=== PATIENT | female | born 1960 | race Caucasian/White ===

== ENCOUNTER → 2020-11-28 | Outpatient (REF) | payer OTHER ==
[2020-11-28 11:45] LABS: BASO % 0.2 % (0.0-1.0); EOS # 0.1 10^3/uL (0.0-0.5); HEMATOCRIT 40.7 % (36.0-47.0); HEMOGLOBIN 13.1 g/dl (12.0-15.5); LYMPH # 2.2 10^3/uL (1.5-5.0); LYMPH % 37.5 % (24.0-44.0); MEAN CORPUSCULAR HEMOGLOBIN 30.7 pg (27.0-33.0); MEAN CORPUSCULAR HGB CONC 32.2 g/dl (32.0-36.5); MEAN CORPUSCULAR VOLUME 95.3 fl (80.0-96.0); MONO # 0.6 10^3/uL (0.0-0.8); MONO % 9.5 % (2.0-8.0); NEUTROPHILS % 50.6 % (36.0-66.0); PLATELET COUNT, AUTOMATED 271 10^3/uL (150-450); RED BLOOD COUNT 4.27 10^6/uL (4.00-5.40); WHITE BLOOD COUNT 5.9 10^3/uL (4.0-10.0)
[2020-11-28 12:23] LABS: ALBUMIN 4.1 GM/DL (3.2-5.2); ALT/SGPT 52 U/L (12-78); BILIRUBIN,TOTAL 0.8 MG/DL (0.2-1.0); BLOOD UREA NITROGEN 19 MG/DL (7-18); CALCIUM LEVEL 9.6 MG/DL (8.8-10.2); CARBON DIOXIDE LEVEL 25 MEQ/L (21-32); CHLORIDE LEVEL 108 MEQ/L (98-107); CHOLESTEROL LEVEL 212 MG/DL (<200); CHOLESTEROL RISK RATIO 3.475 (<5); CREATININE FOR GFR 0.76 MG/DL (0.55-1.30); FREE T4 0.92 NG/DL (0.76-1.46); GLOMERULAR FILTRATION RATE > 60.0 (>45); GLUCOSE, FASTING 110 MG/DL (70-100); HDL CHOLESTEROL 61 MG/DL (>40); LDL CHOLESTEROL 104 MG/DL (<100); NON-HDL-C 151 MG/DL; POTASSIUM SERUM 4.4 MEQ/L (3.5-5.1); SODIUM LEVEL 143 MEQ/L (136-145); TOTAL PROTEIN 7.4 GM/DL (6.4-8.2); TRIGLYCERIDES LEVEL 233 MG/DL (<150)
[2020-11-28 12:31] LABS: HEMOGLOBIN A1c 5.4 %
== END ==
LOC: M SFHCCLAY 08:58
PROVIDERS: ATTEND Nurse Practitioner Family
DX: E03.9 Hypothyroidism, unspecified (principal); R73.01 Impaired fasting glucose; F41.1 Generalized anxiety disorder; E66.9 Obesity, unspecified; B00.1 Herpesviral vesicular dermatitis

== ENCOUNTER → 2020-12-05 | Outpatient (CLI) | payer SELFPAY | LOC: M LABSMTC 10:43 | PROVIDERS: ATTEND Pediatrics | DX: Z20.822 Contact with and (suspected) exposure to COVID-19 (principal) ==

== ENCOUNTER → 2020-12-24 | Outpatient (REF) | payer OTHER | LOC: M LAB REF 18:21 | PROVIDERS: ATTEND Otolaryngology | DX: E07.9 Disorder of thyroid, unspecified (principal) ==

== ENCOUNTER 2021-02-09 14:05 | Inpatient (IN) | payer OTHER ==
[~2021-02-09] VITALS: Ht 165.1 cm; Wt 90.4 kg
[~2021-02-09 14:05] MED LIST: ACYC1TAB PO; ALPR0.25 PO; ATOR40TA75 PO; BYST10TA2 PO; CALCTAB62 PO; ECOT81TA5 PO; LEVO50TA5 PO; METF500T13 PO; MULT-90 PO; OM3/1CAP3 PO; PROBCAP17 PO; SUPETAB44 PO; SYNT50TA PO; VITA-243 PO; [UNRECOGNIZED DRUG - CODE] PO
[2021-02-09] MEDS ORDERED: MORPHINE 4 MG/ML 1ML VIAL/SYRINGE (J2270) IV ONE ×3 (14:20→15:50)
[2021-02-09] MEDS ORDERED: MORPHINE 4 MG/ML 1ML VIAL/SYRINGE (J2270) As Ordered ONE (14:21)
[2021-02-09] MEDS: NS 1,000 ML IV SCH ×2 (15:09→16:24)
[2021-02-09] MEDS: propofoL 200 MG/20 ML VIAL IV.PROC PRN ×4 (15:11→15:17)
[2021-02-09 16:33] LABS: BASO % 0.1 % (0.0-1.0); EOS # 0.1 10^3/uL (0.0-0.5); EOS % 0.8 % (0.0-3.0); HEMATOCRIT 36.8 % (36.0-47.0); LYMPH # 1.8 10^3/uL (1.5-5.0); MEAN CORPUSCULAR HGB CONC 32.6 g/dl (32.0-36.5); MEAN CORPUSCULAR VOLUME 95.1 fl (80.0-96.0); MONO # 0.7 10^3/uL (0.0-0.8); MONO % 8.3 % (2.0-8.0); NEUTROPHILS # 5.9 10^3/uL (1.5-8.5); NEUTROPHILS % 69.4 % (36.0-66.0); PLATELET COUNT, AUTOMATED 231 10^3/uL (150-450); RED BLOOD COUNT 3.87 10^6/uL (4.00-5.40); WHITE BLOOD COUNT 8.5 10^3/uL (4.0-10.0)
--- NOTE | 2021-02-09 16:54 | REP ---
INDICATION: right ankle pain/deformity. COMPARISON: None. TECHNIQUE: Frontal and lateral views of the right tibia and fibula and 4 images were obtained. FINDINGS: There is a comminuted fracture of the distal fibula, and a transverse fracture of the medial malleolus with lateral dislocation of the ankle joint. The knee joint is unremarkable. IMPRESSION: Fractures of the distal tibia and fibula with lateral dislocation of the ankle joint. <Electronically signed by Freddy House > 02/09/21 [id number]
[2021-02-09 16:58] LABS: ALBUMIN 3.7 GM/DL (3.2-5.2); ALT/SGPT 62 U/L (12-78); BILIRUBIN,TOTAL 0.6 MG/DL (0.2-1.0); BLOOD UREA NITROGEN 20 MG/DL (7-18); CALCIUM LEVEL 8.5 MG/DL (8.8-10.2); CARBON DIOXIDE LEVEL 27 MEQ/L (21-32); CHLORIDE LEVEL 110 MEQ/L (98-107); CREATININE FOR GFR 0.77 MG/DL (0.55-1.30); GLOMERULAR FILTRATION RATE > 60.0 (>45); GLUCOSE, FASTING 104 MG/DL (70-100); POTASSIUM SERUM 4.3 MEQ/L (3.5-5.1); SODIUM LEVEL 144 MEQ/L (136-145); TOTAL PROTEIN 6.4 GM/DL (6.4-8.2)
--- NOTE | 2021-02-09 16:58 | REP ---
INDICATION: right ankle pain/deformity. COMPARISON: None. TECHNIQUE: Three images of the right ankle were obtained. FINDINGS: There is a comminuted fracture of the distal fibula and a transverse fracture of the medial malleolus with lateral dislocation of the ankle. Additionally, there may be additional fractures of the talus and/or calcaneus. There has been orthopedic screw fixation of a prior fracture of the calcaneus. IMPRESSION: Fractures of the distal tibia and fibula with dislocation of the ankle. Other findings as noted. <Electronically signed by Freddy House > 02/09/21 [id number]
--- NOTE | 2021-02-09 17:19 | REPVR ---
PROCEDURE INFORMATION: Exam: CT Right Lower Extremity Without Contrast, Ankle Exam date and time: 02/09/2021 3:45 PM Age: 60 years old Clinical indication: Injury or trauma; Fall; Blunt trauma; Ankle; Right; Additional info: Further evaluate right ankle reduction TECHNIQUE: Imaging protocol: CT of the Right lower extremity without contrast was performed. Exam focused on the ankle. Radiation optimization: All CT scans at this facility use at least one of these dose optimization techniques: automated exposure control; mA and/or kV adjustment per patient size (includes targeted exams where dose is matched to clinical indication); or iterative reconstruction. COMPARISON: CR Ankle, complete RIGHT 02/09/2021 2:25 PM FINDINGS: Bones/joints: Comminuted fracture distal fibular metaphyseal and anterior epiphyseal fracture, with posterior angulation and mild overriding at the distal fracture site; Posterior dislocation of the talus at the tibiotalar articulation, with overriding mildly laterally displaced and mildly comminuted comminuted fracture of the distal tibial posterior malleolus. Transverse fracture of the distal tibial medial malleolus with approximately 95% posterior displacement of the distal fragment and mild posterior elevated rotation (series 204, image 70). Previous calcaneal-talar fixation screw redemonstrated. Probable suture anchor tracts medial navicular. An os trigonum is present, a sometimes symptomatic normal variant. Soft tissues: The posterior tibial tendon is in contact with the displaced posterior tibial medial malleolar fragment and does not demonstrate any evidence of entrapment. Medial predominant soft tissue swelling at the level of the ankle. IMPRESSION: Tibiotalar dislocation with posterior and medial malleolar tibial fractures and comminuted distal fibular fracture. Electronically signed by: Pete Cuellar On 02/09/2021 17:18:47 PM
--- NOTE | 2021-02-09 17:36 | ECGEPIP ---
[facility] - ED Test Date: 2021-02-09 Pat Name: SIMEON RAYMOND Department: Room: - Gender: Female [employer]: NICOLAS : 1960 Requested By: DENNIS LOZA Order Number: [id number] Reading MD: Dennis Alberto Measurements Intervals [place] Rate: 66 P: 65 DE: 164 QRS: -24 QRSD: 88 T: 31 QT: 448 QTc: 469 Interpretive Statements Normal sinus rhythm Low QRS complex voltage in the limb leads Nonspecific T wave abnormality Comparison tracing not on file Electronically Signed on 02-09-2021 17:35:56 EDT by Dennis Alberto
--- NOTE | 2021-02-09 17:58 | CR.PDOC ---
General Date of Consultation: Feb 09, 2021 Consultation REASON FOR CONSULTATION/CHIEF COMPLAINT: Right ankle fracture dislocation History taken from patient and from admission history and physical HISTORY OF PRESENT ILLNESS: Patient was reportedly walking down a slope today when she lost her balance and ended up falling. She had an obvious deformity to her right foot and ankle. Reportedly by EMS there was a questionable pulses to the extremity at the time. She did have a pink and warm extremity however. She is brought to the emergency room with a clear obvious deformity. She was quickly evaluated by the emergency room physician. I was in the emergency room at the time so conscious sedation with closed reduction was arranged. Of note, she has had bilateral calcaneal slide or other type procedures performed with retention of hardware. ALLERGIES: Please see below. HOME MEDICATIONS: Please see below. PAST MEDICAL HISTORY: HYPOTHYROIDISM HIGH CHOLESTEROL ALLERGIC RHINITIS HTN ORAL - COLD SORES ALVARO OBESITY HERPES LABIALIS PAST SURGICAL HISTORY: RIGHT WRIST ARTHRITIC SURGERY RIGHT FOOT RECONSTRUCTION LEFT ANKLE RECONSTRUCTION LEFT KNEE: TORN ACL AND MENISCUS ANKLE AND FOOT REPAIR VASCULAR SURGERY - VARICOSE VEINS 2019 COLONOSCOPY IN 40S SOCIAL HISTORY: Social alcohol use Denies smoking FAMILY HISTORY: FATHER: 85 YRS, FROM [place], HX OF CAD AND DEMENTIA MOTHER: ALIVE 86 YRS, GLAUCOMA, PVD, HTN SIBLINGS: SISTER: PITUITARY TUMOR, MIGRAINE SISTER: MIGRAINE, VARICOSE VEINS PATERNAL GRAND FATHER: , CAD PATERNAL GRAND MOTHER: , DEMENTIA MATERNAL GRAND FATHER: , CAD, DEMENTIA MATERNAL GRAND MOTHER: , CAD, DIAGNOSED WITH DIABETES 2 SISTER(S) - HEALTHY. REVIEW OF SYSTEMS: Patient denies any complaints or concerns aside from her right foot and ankle PHYSICAL EXAMINATION: VITAL SIGNS: Please see below. GENERAL APPEARANCE: Patient is not in any significant acute distress but she does have significant discomfort to her right ankle which demonstrates the clear deformity EXTREMITIES: The right foot and ankle demonstrates a 90 degree position of the foot with no obvious open fracture or otherwise. There is tenting of the skin particularly medially. The patient has very weak posterior tibial pulse. The dorsalis pedis is not particularly palpable. NEUROLOGICAL: Sensation is grossly intact to the right foot and ankle LABORATORY DATA: Please see below. ASSESSMENT/PLAN: Patient demonstrates a right ankle fracture dislocation which is quite severe. X-ray imaging confirmed this. There was trimalleolar fracture dislocation with fragmentation of the fibula. There also appears to be a possible support fracture of the anterior lateral tibia plafond. The patient underwent conscious sedation with a closed reduction attempt. The patient consented to this with the appropriate risks and benefits described as documented on the consent form. The patient is aware that she will require surgical intervention. After a timeout was performed, the patient received propofol for conscious sedation. The patient did receive quite a bit of this medication and during the attempt at reduction with the knee flexed and the hip flexed to 90 degrees she was fighting the reduction and shouting out what was later identified as her dog's name throughout the whole time. The reduction was difficult. The medial malleolus fragment was difficult to manipulate however the skin tension and tenting was able to be reduced. The anterior medial to lateral anatomy of the foot appeared to be reapproximated without any significant skin tenting however again the patient was continually fighting the reduction. A plaster back slab and sugar tong splint was applied and allowed to cure in position. Post splinting, the patient demonstrated palpable dorsalis pedis pulse and was moving her toes and grossly had sensation to the exposed portion of her foot. Post splinting, a CT scan was ordered: The CT scan was independently ordered and reviewed by myself today. This demonstrated evidence of a comminuted distal fibula fracture with posterior malleolus fracture and possible posterior marginal impaction; displaced medial malleolus fracture with tibiotalar dislocation persisting, posteriorly Due to the persistent dislocation of the tibiotalar joint, the patient will be taken urgently to the operating room this evening for close reduction and application of external fixator. Patient will be admitted Vital Signs/I&O Vital Signs Date Time Temp Pulse Resp B/P (MAP) Pulse Ox O2 Delivery O2 Flow Rate FiO2 02/09/21 16:25 16 02/09/21 15:23 134/72 (92) Nasal Cannula 2.0 02/09/21 15:20 79 98 02/09/21 14:15 98.2 Laboratory Data Labs 24H Laboratory Tests 2 02/09/21 15:28: Immature Granulocyte % (Auto) 0.4, Neutrophils (%) (Auto) 69.4H, Lymphocytes (%) (Auto) 21.0L, Monocytes (%) (Auto) 8.3H, Eosinophils (%) (Auto) 0.8, Basophils (%) (Auto) 0.1, Neutrophils # (Auto) 5.9, Lymphocytes # (Auto) 1.8, Monocytes # (Auto) 0.7, Eosinophils # (Auto) 0.1, Basophils # (Auto) 0.0, Nucleated Red Blood Cells % (auto) 0.0, Anion Gap 7L, Glomerular Filtration Rate > 60.0, Calcium Level 8.5L, Total Bilirubin 0.6, Aspartate Amino Transf (AST/SGOT) 37, A lanine Aminotransferase (ALT/SGPT) 62, Alkaline Phosphatase 66, Total Protein 6.4, Albumin 3.7, Albumin/Globulin Ratio 1.4 02/09/21 16:09: CBC/BMP Laboratory Tests 02/09/21 15:28 Allergies Coded Allergies: Penicillins (Verified Allergy, Unknown, 02/10/21) PATIENT STATES SHE RECEIVED KEFLEX W/NO PROBLEM Sulfa (Sulfonamide Antibiotics) (Verified Allergy, Unknown, 02/07/21) Home Medications Scheduled Acyclovir (Acyclovir) 400 Mg Tablet, 400 MG PO DAILY, (Reported) Ascorbic Acid (Vitamin C) 500 Mg Tablet, 500 MG PO DAILY, (Reported) Aspirin (Ecotrin) 81 Mg Tablet.dr, 81 MG PO BID for 28 Days, #30 Atorvastatin Calcium (Atorvastatin Calcium) 40 Mg Tablet, 40 MG PO QHS, (Reported) Calcium Carbonate (Calcium) 600 Mg Tablet, 600 MG PO QHS, (Reported) Cetirizine HCl (ZyrTEC) 10 Mg Capsule, 10 MG PO DAILY, (Reported) Folic Acid/Vit B Complex and C (Super B Complex Tablet) 400 Mcg Tablet, 1 TAB PO DAILY, (Reported) Lactobacillus Combo No.11 (Probiotic) 1 Each Cap.sprink, 1 CAP PO DAILY, (Reported) Levothyroxine Sodium (Levothyroxine Sodium) 50 Mcg Tablet, 50 MCG PO DAILY, (Reported) Metformin HCl (Metformin HCl) 500 Mg Tablet, 500 MG PO BID, (Reported) Multivitamin (Multivitamin) 1 Each Tablet, 2 TABS PO QHS, (Reported) Nebivolol HCl (Bystolic) 10 Mg Tablet, 10 MG PO QHS, (Reported) Om3/Dha/Epa/Fish/Kril/Lut/Zeax (Megared Adv Total Body Refresh) 375 Mg-350 Mg- 500 Mg-30 Mg Capsule, 2 CAP PO QHS, (Reported) Phentermine/Topiramate (Qsymia 11.25 mg-69 mg Capsule) 1 Each Cpmp.24hr, 1 CAP PO DAILY, (Reported) Sennosides/Docusate Sodium (Senna-S Tablet) 1 Each Tablet, 1 TAB PO BID for 7 Days, #14 [Flexuron] , 1 CAP PO QHS, (Reported) [Prevagen] , 10 MG PO DAILY, (Reported) Scheduled PRN Acetaminophen (Acetaminophen) 325 Mg Tablet, 650 MG PO Q4HP PRN for TEMP,PAIN LEVEL 1-4 for 30 Days, #90 Alprazolam (Alprazolam) 0.25 Mg Tablet, 0.25 MG PO QID PRN for ANXIETY, (Reported) Oxycodone HCl (Oxycodone HCl) 5 Mg Tablet, 5 MG PO Q6HP PRN for PAIN LEVEL 5-7 for 5 Days, #20 VINICIO GONZALES MD Feb 09, 2021 17:58
[2021-02-09 18:00] LABS: RSV AMPLIFICATION NEGATIVE (NEGATIVE)
[2021-02-09] MEDS ORDERED: [UNRECOGNIZED DRUG - OTHER] PO (19:00)
[2021-02-09] MEDS ORDERED: PREVAGEN PO (19:00)
[2021-02-09] MEDS ORDERED: CETI10CA2 PO (19:00)
[2021-02-09] MEDS ORDERED: HOME MED LIST COMPLETE! XX SCH (19:10)
[2021-02-09] MEDS ORDERED: HYDROMORPHONE HCL 0.5 MG/ 0.5 ML SYRINGE (J1170 PER 1) IV PRN ×2 (19:35)
[2021-02-09] MEDS ORDERED: ACETAMINOPHEN *IV* 1,000 MG in IV 1 EA IV ONE (19:35)
[2021-02-09] MEDS ORDERED: MOM 30ML SUSPENSION UDC PO PRN (19:40)
[2021-02-09] MEDS ORDERED: MAALOX 30 ML SUSP *UDC PO PRN (19:40)
[2021-02-09] MEDS ORDERED: NS 1,000 ML IV SCH (19:40)
--- NOTE | 2021-02-09 19:41 | HPEPDOC ---
[facility] Medical History & Physical Date of Admission Feb 09, 2021 Date of Service: Feb 09, 2021 History and Physical CHIEF COMPLAINT: Right ankle fracture HISTORY OF PRESENT ILLNESS: 60-year-old female with past medical history of hypothyroidism cold, hypercholesterolemia, hypertension, herpes simplex, degenerative disorder, herpes labialis, obesity, orthopedic surgeries, presented to the ER after she was walking in her backyard stepped on a pile of mud and sustained severe right ankle pain. Imaging here shows fractures of the distal tibia and fibula with dislocation of the ankle. Patient was evaluated to [facility] with your this evening. Patient denies any chest pain shortness breath palpitations nausea vomiting diarrhea PAST MEDICAL HISTORY: HYPOTHYROIDISM HIGH CHOLESTEROL ALLERGIC RHINITIS HTN ORAL - COLD SORES ALVARO OBESITY HERPES LABIALIS PAST SURGICAL HISTORY: RIGHT WRIST ARTHRITIC SURGERY RIGHT FOOT RECONSTRUCTION LEFT ANKLE RECONSTRUCTION LEFT KNEE: TORN ACL AND MENISCUS ANKLE AND FOOT REPAIR VASCULAR SURGERY - VARICOSE VEINS 2019 COLONOSCOPY IN 40S SOCIAL HISTORY: Social alcohol use Denies smoking FAMILY HISTORY: FATHER: 85 YRS, FROM [place], HX OF CAD AND DEMENTIA MOTHER: ALIVE 86 YRS, GLAUCOMA, PVD, HTN SIBLINGS: SISTER: PITUITARY TUMOR, MIGRAINE SISTER: MIGRAINE, VARICOSE VEINS PATERNAL GRAND FATHER: , CAD PATERNAL GRAND MOTHER: , DEMENTIA MATERNAL GRAND FATHER: , CAD, DEMENTIA MATERNAL GRAND MOTHER: , CAD, DIAGNOSED WITH DIABETES 2 SISTER(S) - HEALTHY. ALLERGIES: Please see below. REVIEW OF SYSTEMS: 10 point ROS conducted, relevant as noted in the HPI. HOME MEDICATIONS: Please see below. PHYSICAL EXAMINATION: VITAL SIGNS: please see below General: NAD, comfortable HEENT: PERRLA, EOMI, sclerae clear Neck: supple, normal ROM, no JVD Respiratory: lungs CTAB, no wheeze, no rales, no crackles CVS: RRR, normal S1, S2, no murmurs Abdo: soft, no masses, no hepatosplenomegaly, BS+, no rebound tenderness Extremities: Right leg in cast MSK: no joint deformities, normal ROM Neuro: no focal neuro deficits, moving all 4 extremities, CN2-12 intact. Strength 5/5 in all 4 extremities. No nystagmus. Psych: calm, cooperative, AAO x 3 LABORATORY DATA: See below. IMAGING: CT right ankle contrast on 02/09/2021 Tibiotalar dislocation with posterior and medial malleolar tibial fractures and comminuted distal fibular fracture Tib-fib right leg on 02/09/2021 Fractures of the distal tibia and fibula with lateral dislocation of the ankle joint. Ankle, completed right 02/10/2020 Fractures of the distal tibia and fibula with dislocation of the ankle. Other findings as noted. MICROBIOLOGY: Please see below. ASSESSMENT: 60-year-old female with past medical history of hypothyroidism cold, hypercholesterolemia, hypertension, herpes simplex, degenerative disorder, herpes labialis, obesity, orthopedic surgeries, presented to the ER after she was walking in her backyard stepped on a pile of mud and sustained severe right ankle pain. Imaging here shows fractures of the distal tibia and fibula with dislocation of the ankle. Patient was evaluated to [facility] with your this evening. Patient denies any chest pain shortness breath palpitations nausea vomiting diarrhea . PLAN: Right ankle fracture: Per per Ortho. Plan to take to the OR this evening. Imaging reviewed. Pain control with Dilaudid. Bowel regimen. Hypertension: Resume Bystolic postop. BP elevated likely due to pain. History of herpes labialis as well as oral cold sores: Resume suppressive acyclovir. Obesity: Appears patient takes phentermine/topiramate. Instructed on hospital formulary will request family to bring Per PCP notes patient is to be weaned off. Prediabetes: Metformin 500 twice daily. Started on insulin sliding scale before meals and at bedtime. FSBS before meals and at bedtime. Vital Signs Vital Signs Date Time Temp Pulse Resp B/P (MAP) Pulse Ox O2 Delivery O2 Flow Rate FiO2 02/09/21 16:35 16 Room Air 02/09/21 15:23 134/72 (92) 2.0 02/09/21 15:20 79 98 02/09/21 14:15 98.2 Laboratory Data Labs 24H Laboratory Tests 2 02/09/21 15:28: Immature Granulocyte % (Auto) 0.4, Neutrophils (%) (Auto) 69.4H, Lymphocytes (%) (Auto) 21.0L, Monocytes (%) (Auto) 8.3H, Eosinophils (%) (Auto) 0.8, Basophils (%) (Auto) 0.1, Neutrophils # (Auto) 5.9, Lymphocytes # (Auto) 1.8, Monocytes # (Auto) 0.7, Eosinophils # (Auto) 0.1, Basophils # (Auto) 0.0, Nucleated Red Blood Cells % (auto) 0.0, Anion Gap 7L, Glomerular Filtration Rate > 60.0, Calcium Level 8.5L, Total Bilirubin 0.6, Aspartate Amino Transf (AST/SGOT) 37, Alanine Aminotransferase (ALT/SGPT) 62, Alkaline Phosphatase 66, Total Protein 6.4, Albumin 3.7, Albumin/Globulin Ratio 1.4 02/09/21 16:09: Coronavirus (COVID-19)(PCR) NEGATIVE, Influenza Type A (RT-PCR) NEGATIVE, Influenza Type B (RT-PCR) NEGATIVE, Respiratory Syncytial Virus (PCR) NEGATIVE CBC/BMP Laboratory Tests 02/09/21 15:28 Home Medications Scheduled Acyclovir (Acyclovir) 400 Mg Tablet, 400 MG PO DAILY Ascorbic Acid (Vitamin C) 500 Mg Tablet, 500 MG PO DAILY Aspirin (Ecotrin) 81 Mg Tablet.dr, 81 MG PO BID Atorvastatin Calcium (Atorvastatin Calcium) 40 Mg Tablet, 40 MG PO QHS Calcium Carbonate (Calcium) 600 Mg Tablet, 600 MG PO QHS Cetirizine HCl (ZyrTEC) 10 Mg Capsule, 10 MG PO DAILY Folic Acid/Vit B Complex and C (Super B Complex Tablet) 400 Mcg Tablet, 1 TAB PO DAILY Lactobacillus Combo No.11 (Probiotic) 1 Each Cap.sprink, 1 CAP PO DAILY Levothyroxine Sodium (Levothyroxine Sodium) 50 Mcg Tablet, 50 MCG PO DAILY Metformin HCl (Metformin HCl) 500 Mg Tablet, 500 MG PO BID Multivitamin (Multivitamin) 1 Each Tablet, 2 TABS PO QHS Nebivolol HCl (Bystolic) 10 Mg Tablet, 10 MG PO QHS Om3/Dha/Epa/Fish/Kril/Lut/Zeax (Megared Adv Total Body Refresh) 375 Mg-350 Mg- 500 Mg-30 Mg Capsule, 2 CAP PO QHS Phentermine/Topiramate (Qsymia 11.25 mg-69 mg Capsule) 1 Each Cpmp.24hr, 1 CAP PO DAILY [Flexuron] , 1 CAP PO QHS [Prevagen] , 10 MG PO DAILY Scheduled PRN Alprazolam (Alprazolam) 0.25 Mg Tablet, 0.25 MG PO QID PRN for ANXIETY Allergies Coded Allergies: Penicillins (Verified Allergy, Unknown, 02/07/21) Sulfa (Sulfonamide Antibiotics) (Verified Allergy, Unknown, 02/07/21) KATJA HEIN MD Feb 09, 2021 19:41
[2021-02-09] MEDS ORDERED: GLUCOSE 4GM CHEW TABLET PO PRN (19:50)
[2021-02-09] MEDS ORDERED: GLUCAGON INJ 1MG VIAL SC PRN (19:50)
[2021-02-09] MEDS ORDERED: DEXTROSE 50% 50 ML SYRINGE IV PRN (19:50)
[2021-02-09] MEDS ORDERED: ATORVASTATIN 20 MG TAB PO SCH (21:00)
[2021-02-09] MEDS ORDERED: HumaLOG INSULIN (NovoLOG) PER UNIT SC SCH (21:00)
[2021-02-09] MEDS ORDERED: NEBIVOLOL 5 MG TAB (BYSTOLIC) PO SCH (21:00)
[2021-02-09] MEDS ORDERED: fentaNYL 100 MCG/2 ML INJECTION (J3010) As Ordered ONE (22:55)
[2021-02-09] MEDS ORDERED: dexameTHASONE 4 MG/ML 1ML VIAL (J1100 PER 1MG) As Ordered ONE (22:55)
[2021-02-09] MEDS ORDERED: HYDROmorphone HCL 2 MG/ML 1ML VIAL As Ordered ONE (22:55)
[2021-02-09] MEDS ORDERED: MIDAZOLAM INJ 2MG/2ML VIAL (J2250 PER 1MG) As Ordered ONE (22:55)
[2021-02-09] MEDS ORDERED: ONDANSETRON 4MG/2ML VIAL As Ordered ONE (22:55)
[2021-02-09] MEDS ORDERED: propofoL 200 MG/20 ML VIAL As Ordered ONE (22:56)
[2021-02-09] MEDS ORDERED: LIDOCAINE 2% 100MG/5ML SDV (FOR ANES.) As Ordered ONE (22:56)
[2021-02-09 22:59] LABS: BLOOD UREA NITROGEN 19 MG/DL (7-18); CALCIUM LEVEL 8.1 MG/DL (8.8-10.2); CARBON DIOXIDE LEVEL 27 MEQ/L (21-32); CHLORIDE LEVEL 110 MEQ/L (98-107); CREATININE FOR GFR 0.73 MG/DL (0.55-1.30); GLOMERULAR FILTRATION RATE > 60.0 (>45); GLUCOSE, FASTING 102 MG/DL (70-100); POTASSIUM SERUM 3.7 MEQ/L (3.5-5.1); SODIUM LEVEL 143 MEQ/L (136-145)
[2021-02-09] MEDS ORDERED: ceFAZolin 1GM VIAL (J0690 PER 500MG) As Ordered ONE ×2 (22:59→23:33)
[2021-02-09] MEDS ORDERED: METOCLOPRAMIDE INJ 10MG/2ML VIAL (J2765 PER 1) As Ordered ONE (23:30)
[2021-02-09] MEDS ORDERED: BUPIVACAINE/EPIN 0.5% 30 ML VIAL As Ordered ONE (23:34)
[2021-02-09] MEDS ORDERED: ACETAMINOPHEN 1000MG 100ML IV BTL (OFIRMEV) (J0131 PER 10MG) As Ordered ONE (23:54)
[2021-02-10] MEDS ORDERED: PERCOCET 5MG/325MG TAB PO PRN
[2021-02-10] MEDS ORDERED: LR 1,000 ML IV SCH
[2021-02-10] MEDS ORDERED: fentaNYL 100 MCG/2 ML INJECTION (J3010) IV PRN
[2021-02-10] MEDS ORDERED: METOCLOPRAMIDE INJ 10MG/2ML VIAL (J2765 PER 1) IV PRN
[2021-02-10] MEDS ORDERED: KETOROLAC 60MG 2ML VIAL As Ordered ONE (00:03)
[2021-02-10] MEDS: LR 1,000 ML IV SCH ×2 (00:30→10:30)
[2021-02-10] MEDS ORDERED: ACETAMINOPHEN TAB 650MG DOSE (2X325MG) PO PRN (01:00)
--- NOTE | 2021-02-10 01:07 | ROOPDOC ---
[facility] Report Of Operation Report of Operation DATE OF PROCEDURE: 02/10/21 PREPROCEDURE DIAGNOSES: Right ankle fracture dislocation POSTPROCEDURE DIAGNOSES: Right ankle fracture dislocation PROCEDURE PERFORMED: Closed reduction and application of external fixator right leg and foot SURGEON: Dennis Gonzales MD ENVELOPE FOLD OPERATOR: Rissa Christian PA-C ANESTHESIA: General anesthetic. ESTIMATED BLOOD LOSS: Approximately 10 mL. COMPLICATIONS: No known complication REMARKS: Patient brought to the operating room preoperative area and consent obtained for the procedure after a discussion of the risks and benefits. The patient is aware that an additional procedure will be planned. This will likely be performed by Dr. Will next week and once the soft tissues have had a chance to calm down. FINDINGS: Palpable dorsalis pedis pulse present before and after procedure SPECIMENS REMOVED: None DESCRIPTION OF PROCEDURE: The patient was brought to the operating room and a general anesthetic induction occurred after a surgical pause was carried out. The patient underwent a standard positioning and sterile prep and drape of the right leg. This was performed with chlorhexidine swabs. A bone foam elevator was utilized during the procedure. After the sterile prep and drape was carried out, a surgical safety checklist and pause was performed. The procedure was carried out without the inflation of the tourniquet which was in place. The patient received Ancef 2 g IV prior to incision. Procedure was initiated with 2 stab hole incisions approximately 4 fingerbreadths below the joint surface of the tibia. Two 5 mm guidepins were introduced into the tibia transosseously. Positioning of these was confirmed with fluoroscopy. Attention was then turned to the transcalcaneal pin. AP and lateral fluoroscopy was used to help position this pin. A small stab hole incis ion was made laterally and the pin was advanced from lateral to medial. A small incision was made over the tenting skin where the other pin site was. Fluoroscopy was utilized to check to ensure that the pin was relatively centered. Imaging was checked on AP and lateral fluoroscopy. The 11 mm radiolucent rods at 50 length in total were utilized. An outrigger was used at the proximal portion of the tibial pins. These were tightened appropriately. The connectors to the 5 mm and the 11 mm pins were connected. These were initially hand tightened. Using AP and lateral fluoroscopy the tibiotalar joint was reduced to the allowable near-anatomic position. These were then tightened appropriately. The pin sites were covered with Betadine soaked sponge proxim sangeeta and Curlex and Adaptic, 4 x 4 and Kerlix distally through the calcaneus. Final imaging was saved. The patient received some local anesthetic Marcaine at the pin sites The patient's anesthetic was reversed and she was taken to the recovery room stable with no known complications. She will remain in hospital overnight and be assessed by physical therapy for possible discharge home tomorrow. She is nonweightbearing to the right lower extremity. Plan for possible final fixation of the ankle next week DENNIS GONZALES MD Feb 10, 2021 01:07
[2021-02-10] MEDS ORDERED: oxyCODONE 5MG TAB PO PRN (01:20)
[2021-02-10] MEDS ORDERED: ONDANSETRON 4MG/2ML VIAL IV PRN ×2 (01:20)
[2021-02-10 01:30] VITALS: BP 146/73
[2021-02-10 02:35] LABS: BLOOD UREA NITROGEN 18 MG/DL (7-18); CALCIUM LEVEL 8.4 MG/DL (8.8-10.2); CARBON DIOXIDE LEVEL 27 MEQ/L (21-32); CHLORIDE LEVEL 108 MEQ/L (98-107); CREATININE FOR GFR 0.89 MG/DL (0.55-1.30); GLOMERULAR FILTRATION RATE > 60.0 (>45); GLUCOSE, FASTING 133 MG/DL (70-100); POTASSIUM SERUM 3.9 MEQ/L (3.5-5.1); SODIUM LEVEL 143 MEQ/L (136-145)
[2021-02-10 02:43] VITALS: BP 146/73
[2021-02-10] MEDS: oxyCODONE 5MG TAB PO PRN ×3 (03:27→15:02)
[2021-02-10 03:30] VITALS: BP 138/75
[2021-02-10 06:00] VITALS: BP 159/92
[2021-02-10] MEDS ORDERED: LEVOTHYROXINE 50MCG TABLET (0.05MG) PO SCH (06:00)
[2021-02-10 06:07] LABS: RED BLOOD COUNT 3.86 10^6/uL (4.00-5.40); WHITE BLOOD COUNT 9.2 10^3/uL (4.0-10.0)
[2021-02-10 06:08] LABS: BASO % 0.2 % (0.0-1.0); EOS % 0.1 % (0.0-3.0); MEAN CORPUSCULAR HEMOGLOBIN 31.1 pg (27.0-33.0); MEAN CORPUSCULAR HGB CONC 32.4 g/dl (32.0-36.5); MEAN CORPUSCULAR VOLUME 95.9 fl (80.0-96.0); MONO # 0.4 10^3/uL (0.0-0.8); MONO % 3.8 % (2.0-8.0); NEUTROPHILS # 7.8 10^3/uL (1.5-8.5); NEUTROPHILS % 84.4 % (36.0-66.0); PLATELET COUNT, AUTOMATED 233 10^3/uL (150-450)
[2021-02-10 06:14] LABS: BLOOD UREA NITROGEN 15 MG/DL (7-18); CALCIUM LEVEL 8.2 MG/DL (8.8-10.2); CARBON DIOXIDE LEVEL 24 MEQ/L (21-32); CHLORIDE LEVEL 107 MEQ/L (98-107); CREATININE FOR GFR 0.86 MG/DL (0.55-1.30); GLOMERULAR FILTRATION RATE > 60.0 (>45); GLUCOSE, FASTING 173 MG/DL (70-100); MAGNESIUM LEVEL 1.7 MG/DL (1.8-2.4); POTASSIUM SERUM 3.9 MEQ/L (3.5-5.1); SODIUM LEVEL 140 MEQ/L (136-145)
[2021-02-10] MEDS ORDERED: ceFAZolin SOD 1 GM in D5W MINI-BAG PLUS 50 ML IV SCH ×2 (08:00→08:30)
--- NOTE | 2021-02-10 08:24 | REP ---
INDICATION: EXTERNAL FIXATOR RIGHT ANKLE COMPARISON: 02/09/2021. TECHNIQUE: For C-arm views right lower leg and ankle. FINDINGS: External fixation screws are placed in the proximal tibia and in the calcaneus.The an old fixation screw is visualized in the calcaneus. There are fractures of the distal tibia and fibula which appear well aligned. IMPRESSION: 72 seconds fluoroscopy time utilized. <Electronically signed by Rodrick Rizvi > 02/10/21 0848
[2021-02-10] MEDS: HumaLOG INSULIN (NovoLOG) PER UNIT SC SCH ×2 (08:27→12:00)
[2021-02-10] MEDS ORDERED: ASPIRIN 81MG ENTERIC TABLET PO SCH ×2 (09:00)
[2021-02-10] MEDS ORDERED: ALPRAZolam 0.25 MG TAB PO PRN (09:00)
[2021-02-10] MEDS ORDERED: ACYCLOVIR 200 MG CAPSULE PO SCH (09:00)
[2021-02-10] MEDS ORDERED: ASCORBIC ACID 500 MG TAB PO SCH (09:00)
[2021-02-10] MEDS ORDERED: FLUBLOK(EGG FREE)(QUAD)INFLUENZA VACC 0.5ML SYRINGE 18YRS & OLDER IM ONE (09:00)
[2021-02-10 10:00] VITALS: BP 127/77
[2021-02-10] MEDS: MAG SULF 1GM/100ML (MAG RUN) 1 GM in IV 1 EA IV SCH ×2 (11:14→11:15)
--- NOTE | 2021-02-10 13:02 | DS.PDOC ---
Discharge Summary General Date of Admission Feb 09, 2021 at 19:36 Date of Discharge 02/10/21 Discharge Summary PROCEDURES PERFORMED DURING STAY: [None]. ADMITTING DIAGNOSES: 1. . DISCHARGE DIAGNOSES: 1. . COMPLICATIONS/CHIEF COMPLAINT: Fracture Dislocation Of Right Ankle. HISTORY OF PRESENT ILLNESS: . HOSPITAL COURSE: . DISCHARGE MEDICATIONS: Please see below. ALLERGIES: Please see below. PHYSICAL EXAMINATION ON DISCHARGE: VITAL SIGNS: Please see below. GENERAL: HEENT: NECK: CARDIOVASCULAR EXAMINATION: RESPIRATORY EXAMINATION: ABDOMINAL EXAMINATION: EXTREMITIES: SKIN: NEUROLOGICAL EXAMINATION: PSYCHIATRIC EXAMINATION: LABORATORY DATA: Please see below. IMAGING: PROGNOSIS: ACTIVITY: [As tolerated]. DIET: DISCHARGE PLAN: DISPOSITION: . DISCHARGE INSTRUCTIONS: 1. . ITEMS TO FOLLOWUP ON ON OUTPATIENT: 1. . DISCHARGE CONDITION: [Stable]. TIME SPENT ON DISCHARGE: minutes. Vital Signs/I&Os Vital Signs Date Time Temp Pulse Resp B/P (MAP) Pulse Ox O2 Delivery O2 Flow Rate FiO2 02/10/21 10:15 18 02/10/21 10:00 97.8 75 127/77 (94) 95 Room Air 02/09/21 15:42 2.0 I&O- Last 24 Hours up to 6 AM 02/10/21 06:00 Intake Total 1500 ml Output Total 0 ml Balance 1500 ml Laboratory Data Labs 24H Laboratory Tests 2 02/09/21 15:28: Immature Granulocyte % (Auto) 0.4, Neutrophils (%) (Auto) 69.4H, Lymphocytes (%) (Auto) 21.0L, Monocytes (%) (Auto) 8.3H, Eosinophils (%) (Auto) 0.8, Basophils (%) (Auto) 0.1, Neutrophils # (Auto) 5.9, Lymphocytes # (Auto) 1.8, Monocytes # (Auto) 0.7, Eosinophils # (Auto) 0.1, Basophils # (Auto) 0.0, Nucleated Red Blood Cells % (auto) 0.0, Anion Gap 7L, Glomerular Filtration Rate > 60.0, Calcium Level 8.5L, Total Bilirubin 0.6, Aspartate Amino Transf (AST/SGOT) 37, Alanine Aminotransferase (ALT/SGPT) 62, Alkaline Phosphatase 66, Total Protein 6.4, Albumin 3.7, Albumin/Globulin Ratio 1.4 02/09/21 16:09: Coronavirus (COVID-19)(PCR) NEGATIVE, Influenza Type A (RT-PCR) NEGATIVE, Influenza Type B (RT-PCR) NEGATIVE, Respiratory Syncytial Virus (PCR) NEGATIVE 02/09/21 22:00: Bedside Glucose (Misc Panel) 96 02/09/21 22:26: Anion Gap 6L, Glomerular Filtration Rate > 60.0, Calcium Level 8.1L 02/10/21 01:52: Anion Gap 8, Glomerular Filtration Rate > 60.0, Calcium Level 8.4L 02/10/21 05:31: Anion Gap 9, Glomerular Filtration Rate > 60.0, Calcium Level 8.2L, Immature Gra nulocyte % (Auto) 0.5, Neutrophils (%) (Auto) 84.4H, Lymphocytes (%) (Auto) 11.0L, Monocytes (%) (Auto) 3.8, Eosinophils (%) (Auto) 0.1, Basophils (%) (Auto) 0.2, Neutrophils # (Auto) 7.8, Lymphocytes # (Auto) 1.0L, Monocytes # (Auto) 0.4, Eosinophils # (Auto) 0.0, Basophils # (Auto) 0.0, Nucleated Red Blood Cells % (auto) 0.0, Magnesium Level 1.7L CBC/BMP Laboratory Tests 02/09/21 15:28 02/09/21 22:26 02/10/21 01:52 02/10/21 05:31 FSBS Laboratory Tests Test 02/09/21 22:00 Range/Units Bedside Glucose (Misc Panel) 96 80-115 MG/DL Discharge Medications Scheduled Acyclovir (Acyclovir) 400 Mg Tablet, 400 MG PO DAILY, (Reported) Ascorbic Acid (Vitamin C) 500 Mg Tablet, 500 MG PO DAILY, (Reported) Aspirin (Ecotrin) 81 Mg Tablet.dr, 81 MG PO BID, (Reported) Atorvastatin Calcium (Atorvastatin Calcium) 40 Mg Tablet, 40 MG PO QHS, (Reported) Calcium Carbonate (Calcium) 600 Mg Tablet, 600 MG PO QHS, (Reported) Cetirizine HCl (ZyrTEC) 10 Mg Capsule, 10 MG PO DAILY, (Reported) Folic Acid/Vit B Complex and C (Super B Complex Tablet) 400 Mcg Tablet, 1 TAB PO DAILY, (Reported) Lactobacillus Combo No.11 (Probiotic) 1 Each Cap.sprink, 1 CAP PO DAILY, (Reported) Levothyroxine Sodium (Levothyroxine Sodium) 50 Mcg Tablet, 50 MCG PO DAILY, (Reported) Metformin HCl (Metformin HCl) 500 Mg Tablet, 500 MG PO BID, (Reported) Multivitamin (Multivitamin) 1 Each Tablet, 2 TABS PO QHS, (Reported) Nebivolol HCl (Bystolic) 10 Mg Tablet, 10 MG PO QHS, (Reported) Om3/Dha/Epa/Fish/Kril/Lut/Zeax (Megared Adv Total Body Refresh) 375 Mg-350 Mg- 500 Mg-30 Mg Capsule, 2 CAP PO QHS, (Reported) Phentermine/Topiramate (Qsymia 11.25 mg-69 mg Capsule) 1 Each Cpmp.24hr, 1 CAP PO DAILY, (Reported) [Flexuron] , 1 CAP PO QHS, (Reported) [Prevagen] , 10 MG PO DAILY, (Reported) Scheduled PRN Alprazolam (Alprazolam) 0.25 Mg Tablet, 0.25 MG PO QID PRN for ANXIETY, (Reported) Allergies Coded Allergies: Penicillins (Verified Allergy, Unknown, 02/10/21) PATIENT STATES SHE RECEIVED KEFLEX W/NO PROBLEM Sulfa (Sulfonamide Antibiotics) (Verified Allergy, Unknown, 02/07/21) KATJA HEIN MD Feb 10, 2021 13:02
[2021-02-10] MEDS ORDERED: OXYC-517 PO (13:06)
[2021-02-10] MEDS ORDERED: ACET1TAB55 PO (13:06)
[2021-02-10] MEDS ORDERED: ECOT81TA5 PO (13:06)
[2021-02-10] MEDS ORDERED: SENN1TAB41 PO (13:06)
[2021-02-10] MEDS ORDERED: ceFAZolin SOD 1 GM in D5W MINI-BAG PLUS 50 ML IV ONE ×2 (14:00→14:30)
[2021-02-10 14:04] LABS: BLOOD UREA NITROGEN 15 MG/DL (7-18); CALCIUM LEVEL 8.9 MG/DL (8.8-10.2); CARBON DIOXIDE LEVEL 26 MEQ/L (21-32); CHLORIDE LEVEL 107 MEQ/L (98-107); CREATININE FOR GFR 0.78 MG/DL (0.55-1.30); GLOMERULAR FILTRATION RATE > 60.0 (>45); GLUCOSE, FASTING 156 MG/DL (70-100); POTASSIUM SERUM 4.1 MEQ/L (3.5-5.1); SODIUM LEVEL 140 MEQ/L (136-145)
--- NOTE | 2021-02-10 18:41 | IPNPDOC ---
Text Note Date of Service The patient was seen on 02/10/21. NOTE Postop day 1 from right ankle closed reduction with external fixator placement Patient states that she is doing quite well. Her pain is relatively well controlled and she is not have any significant complaints or concerns. She is looking forward to going home if she is cleared. Examination of the right foot and ankle demonstrates the dressings intact without any obvious signs of staining or bleeding or drainage from the pin sites. The patient is able to move her toes. She has a strong palpable dorsalis pedis pulse and her right foot is warm and pink. She reports intact sensation to the foot to all distributions to light touch. There are no obvious signs of any skin tenting or otherwise pressure ulcerations, develop The plan will be for the patient to work with physical therapy with an ambulatory aid such as crutches or walker for possible discharge home today. I have spoken to Dr. Will who is coordinating for possible open reduction internal fixation this weekend. He will contact the office such that we may be able to communicate the plan to the patient for final fixation. Plan for DC home when able. VS,Calli, I+O VS, Calli, I+O Laboratory Tests 02/09/21 22:26 02/10/21 01:52 02/10/21 05:31 02/10/21 13:01 Vital Signs Date Time Temp Pulse Resp B/P (MAP) Pulse Ox O2 Delivery O2 Flow Rate FiO2 02/10/21 15:02 18 02/10/21 10:00 97.8 75 127/77 (94) 95 Room Air 02/09/21 15:42 2.0 I&O- Last 24 Hours up to 6 AM 02/10/21 06:00 Intake Total 1500 ml Output Total 0 ml Balance 1500 ml VINICIO GONZALES MD Feb 10, 2021 18:41
== END 2021-02-10 15:25 | disposition home or self-care (01) | DRG 494 ==
LOC: M ED 14:05 → M ED INP 19:36 → M MS5PR 21:35
PROVIDERS: ADMIT Family Medicine; ATTEND Family Medicine
PROC: 0QHG35Z Insertion of External Fixation Device into Right Tibia, Percutaneous Approach (ICD-10-PCS; principal; 2021-02-10)
PROC: 0QSGXZZ Reposition Right Tibia, External Approach (ICD-10-PCS; 2021-02-10)
DX: S82.61XA Displaced fracture of lateral malleolus of right fibula, initial encounter for closed fracture (principal); S82.51XA Displaced fracture of medial malleolus of right tibia, initial encounter for closed fracture; E03.9 Hypothyroidism, unspecified; E78.00 Pure hypercholesterolemia, unspecified; E66.9 Obesity, unspecified; I10 Essential (primary) hypertension; F41.1 Generalized anxiety disorder; W01.0XXA Fall on same level from slipping, tripping and stumbling without subsequent striking against object, initial encounter; Y92.017 Garden or yard in single-family (private) house as the place of occurrence of the external cause; Z79.899 Other long term (current) drug therapy; Z79.82 Long term (current) use of aspirin; Z88.0 Allergy status to penicillin; Z88.2 Allergy status to sulfonamides

== ENCOUNTER 2021-02-15 08:13 | Observation (INO) | payer OTHER ==
[~2021-02-15 08:13] MED LIST changes: +ACET1TAB55 PO; +CETI10CA2 PO; +MIDAZOLAM INJ 2MG/2ML VIAL (J2250 PER 1MG) IV PRN; +OXYC-517 PO; +PREVAGEN PO; +SENN1TAB41 PO; +[UNRECOGNIZED DRUG - OTHER] PO; +fentaNYL 100 MCG/2 ML INJECTION (J3010) IV PRN
[2021-02-15 08:40] VITALS: BP 127/84
[2021-02-15] MEDS ORDERED: ceFAZolin SOD 1 GM in D5W MINI-BAG PLUS 50 ML IV ONE ×4 (09:00)
[2021-02-15] MEDS ORDERED: MIDAZOLAM INJ 2MG/2ML VIAL (J2250 PER 1MG) As Ordered ONE (12:51)
[2021-02-15] MEDS ORDERED: LIDOCAINE 2% 100MG/5ML SDV (FOR ANES.) As Ordered ONE (12:51)
[2021-02-15] MEDS ORDERED: ROCURONIUM BROMIDE 50 MG/5 ML VIAL As Ordered ONE (12:51)
[2021-02-15] MEDS ORDERED: fentaNYL 100 MCG/2 ML INJECTION (J3010) As Ordered ONE ×2 (12:51→18:25)
[2021-02-15] MEDS ORDERED: propofoL 200 MG/20 ML VIAL As Ordered ONE (12:51)
[2021-02-15] MEDS ORDERED: ACET1TAB55 PO (12:53)
[2021-02-15] MEDS ORDERED: OXYC-517 PO (12:53)
[2021-02-15] MEDS ORDERED: ASPI81TA26 PO (12:53)
[2021-02-15] MEDS ORDERED: SENN1TAB41 PO (12:53)
[2021-02-15] MEDS ORDERED: ceFAZolin 1GM VIAL (J0690 PER 500MG) As Ordered ONE ×2 (13:19→17:52)
--- NOTE | 2021-02-15 13:56 | CR ---
CONSULTATION DATE: 02/15/2021 CONSULTING SERVICE: Orthopedic surgery. CONSULTING PHYSICIAN: Dat Will MD HISTORY OF PRESENT ILLNESS: This is a 60-year-old female who sustained a closed right ankle trimalleolar fracture that was placed in an external fixator approximately six days prior on the January, by Dr. Mojica. The had the previous aforementioned described right ankle fracture dislocation after losing her balance and sustained a ground level fall on her right ankle. The right ankle was reduced in the operating theater with the external fixator and the patient was scheduled for definitive fixation this weekend with myself for right ankle open reduction and internal fixation. The patient was discharged home after her external fixator placement and was admitted today for definitive treatment. MEDICAL HISTORY: Hypothyroidism, high cholesterol, allergic rhinitis, hypertension, oral cold sores, ALVARO, obesity. SURGICAL HISTORY: Right wrist arthritic surgery, right foot reconstruction, left ankle reconstruction, left knee torn ACL and meniscus repair, colonoscopy. FAMILY HISTORY: Coronary artery disease, dementia, glaucoma, peripheral vascular disease, hypertension. SOCIAL HISTORY: Social alcohol use, denies smoking, denies IV drug use. ALLERGIES: Please see internal medicine note. HOME MEDICATIONS: Please see internal medicine note. REVIEW OF SYSTEMS: 14 point review of systems negative unless otherwise described in HPI above. PHYSICAL EXAMINATION: General: The patient is alert and oriented to person, time and place. Right lower extremity: Right external fixator in position with two Schanz pins in the proximal tibia and calcaneal posterior tuberosity pin placed. Swelling was very minimal. There was moderate ecchymosis about the ankle region. Her right ankle otherwise appeared to be reduced without any deformities with external fixator in position. She had tenderness to palpation about the medial and lateral malleolus. There are no breaks in the skin. She had 5/5 motor strength in the EHL, FHL and tibialis anterior, peroneal and gastrocnemius musculature. She had sensation intact to light touch in deep and superficial peroneal, sural, saphenous and tibial nerve distributions. She had 2+ dorsalis pedis and posterior tibial arterial pulses and brisk capillary refill to the right foot. RADIOGRAPHS: Demonstrate right ankle that was well reduced within the mortise. She had trimalleolar fracture of the right ankle to include distal fibular fracture with comminution, medial malleolar fracture and posterior malleolar fracture. Her talus was reduced within the mortise on the radiographs. Of note, these were the intraop fluoroscopic images. The prereduction CT demonstrated the aforementioned. IMPRESSION: This is a 60-year-old female with right ankle fracture, described trimalleolar fracture requiring right ankle open reduction and internal fixation. PLAN: At this point in time the patient is admitted for definitive treatment for her right ankle. She requires right ankle open reduction and internal fixation for stabilization of the posterior malleolus, lateral malleolus and medial malleolus. The patient will likely receive right lower extremity anesthetic block and will be discharged either today or tomorrow after the aforementioned surgery.
[2021-02-15] MEDS ORDERED: TRANEXAMIC ACID 100 MG/ML 10ML VIAL As Ordered ONE (13:58)
[2021-02-15] MEDS ORDERED: METOCLOPRAMIDE INJ 10MG/2ML VIAL (J2765 PER 1) As Ordered ONE (14:16)
[2021-02-15] MEDS ORDERED: HYDROmorphone HCL 2 MG/ML 1ML VIAL As Ordered ONE (14:23)
[2021-02-15] MEDS ORDERED: ACETAMINOPHEN 1000MG 100ML IV BTL (OFIRMEV) (J0131 PER 10MG) As Ordered ONE (14:26)
[2021-02-15] MEDS ORDERED: ePHEDrine SULFATE 25 MG/5 ML(5MG/ML) SYRINGE As Ordered ONE (14:50)
[2021-02-15] MEDS ORDERED: SCOPOLAMINE 1MG TRANSDERMAL PATCH TOP ONE (15:15)
[2021-02-15] MEDS ORDERED: VANCOMYCIN 1000MG/20ML VIAL As Ordered ONE ×2 (15:27→17:35)
[2021-02-15] MEDS ORDERED: ACETAMINOPHEN TAB 650MG DOSE (2X325MG) PO PRN (15:50)
[2021-02-15] MEDS ORDERED: GLUCOSE 4GM CHEW TABLET PO PRN (15:50)
[2021-02-15] MEDS ORDERED: GLUCAGON INJ 1MG VIAL SC PRN (15:50)
[2021-02-15] MEDS ORDERED: MOM 30ML SUSPENSION UDC PO PRN (15:50)
[2021-02-15] MEDS ORDERED: MAALOX 30 ML SUSP *UDC PO PRN (15:50)
[2021-02-15] MEDS ORDERED: DEXTROSE 50% 50 ML SYRINGE IV PRN (15:50)
[2021-02-15] MEDS ORDERED: PHENYLephrine 500MCG 5ML (100MCG/ML) SYRINGE As Ordered ONE (15:52)
--- NOTE | 2021-02-15 15:52 | HPEPDOC ---
[facility] Medical History & Physical Date of Admission Feb 15, 2021 Date of Service: Feb 15, 2021 History and Physical Chief complaint: Presented to [facility] for internal fixation of her right ankle fracture History of present illness: Patient is a 60-year-old female with a PMHx of HTN, Pre-DM2, DLP, Hypothyroidism, Allergic rhinitis, Obesity, Herpes labialis, who presented to [facility] as a direct admission for internal fixation of her right ankle fracture. Patient reported that on 02/09 she was in her backyard when she slipped on a pile of mud, resulting in a severe fracture and dislocation of her right ankle. Imaging at that time revealed a chime malleolus fracture dislocation with fragmentation of the fibula, there also appeared to be a possible support fracture of the anterior lateral tibia. Initially patient received conscious sedation and a closed reduction. And a saniya ster cast was set. Patient was then taken to the OR for closed reduction and external fixation that night / early AM of 02/10. Patient underwent a closed reduction and application of an external fixator of the right leg and foot with Dr. Mojica on 02/10 early AM. Patient was subsequently discharged after she had cleared physical therapy that afternoon, with instructions to follow-up with orthopedic surgery. Patient has presented to the hospital today for follow-up with Dr. Will for closed reduction and internal fixation of her fracture. Hospital service was called for medication management and admission to their service postoperatively. Patient was seen this morning at the bedside with her present. Currently she reports that her right foot is not in any pain. She and her report that the foot has improved in color over the last several days. They have been keeping it elevated and applying ice as needed. They have been in talks with other providers in the [facility]. Patient denies any nausea, vomiting, headache, chest pain, shortness of breath, cough or palpitations. She denies any abdominal pain. Reports her last bowel movement was yesterday. Denies any constipation or diarrhea. Her last meal was yesterday evening at 8 PM. Denies any urinary discomfort. Denies any recent fevers or chills. Patient reported that she would like to speak with orthopedic surgeon prior to any surgical intervention. Past Medical History: HTN Pre-DM2 DLP Hypothyroidism Allergic rhinitis Obesity Herpes labialis Past Surgical History: Right wrist surgery Right foot reconstruction Left ankle reconstruction Left knee torn ACL and meniscus Varicose vein surgery 2019 Colonoscopy (in her 40s) Fibroid tumor resection approximately 2016 Allergies: See below Medications: See below Family History: - Mother and father with a history of heart disease and hypertension - Sister with a history of pituitary tumor Social History: - Patient reports that she quit smoking in 1987, socially drinks alcohol. Denies any drug use - Has traveled to [place] approximately one month ago. 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 Review of Systems: 10 point review of systems complete, all negative otherwise stated in HPI Physical exam: - Vitals: BP [127/84], HR [70], RR [16], Sat [97%RA], Temp [96.8F] - General: Lying in bed, Speaking in full sentences, AAOx3 - HEENT: NC, AT, PERRLA - CVS: RRR, +S1S2 - Lungs: Fair air entry bilaterally, No appreciable wheezing / rales / rhonchi - Abdomen: Soft, Non-distended, Non-tender - Extremities: LLE without edema, No calf tenderness, RLE with trace edema / dressing / external fixation device in place - Neuro: No focal motor or sensory deficit - Skin: No visible rashes Labs: See below Imaging: See below EKG: See below Assessment and Plan: Right ankle fracture - 2/2 mechanical fall - s/p open reduction and external fixation with Dr. Mojica on 02/10 - Patient presented to [facility] at the direction of orthopedic surgery for open reduction and internal fixation with Dr. Will - Pain control, anticoagulation and physical therapy at the direction of orthopedic team HTN - BP well controlled - Will c/w Nebivolol with hold parameters Pre-DM2 - Will hold Metformin - Will start ISS DLP - c/w [place] 3 fatty acids, Atorvastatin and ASA 81 Hypothyroidism - c/w Levothyroxine Anxiety - c/w Alprazolam PRN Allergic rhinitis - c/w Cetirizine Obesity - Complicating medical care Herpes labialis - c/w Acyclovir DVT prophylaxis - As per surgical team Vital Signs Vital Signs Date Time Temp Pulse Resp B/P (MAP) Pulse Ox O2 Delivery O2 Flow Rate FiO2 02/15/21 08:40 96.8 70 16 127/84 (98) 97 Room Air Laboratory Data Labs 24H Laboratory Tests 2 02/15/21 08:38: Coronavirus (COVID-19)(PCR) NEGATIVE Home Medications Scheduled Acyclovir (Acyclovir) 400 Mg Tablet, 400 MG PO DAILY Ascorbic Acid (Vitamin C) 500 Mg Tablet, 500 MG PO DAILY Aspirin (Aspirin EC) 81 Mg Tablet.dr, 81 MG PO BID Atorvastatin Calcium (Atorvastatin Calcium) 40 Mg Tablet, 40 MG PO QHS Calcium Carbonate (Calcium) 600 Mg Tablet, 600 MG PO QHS Cetirizine HCl (ZyrTEC) 10 Mg Capsule, 10 MG PO DAILY Folic Acid/Vit B Complex and C (Super B Complex Tablet) 400 Mcg Tablet, 1 TAB PO DAILY Lactobacillus Combo No.11 (Probiotic) 1 Each Cap.sprink, 1 CAP PO DAILY Levothyroxine Sodium (Levothyroxine Sodium) 50 Mcg Tablet, 50 MCG PO DAILY Metformin HCl (Metformin HCl) 500 Mg Tablet, 500 MG PO BID Multivitamin (Multivitamin) 1 Each Tablet, 2 TABS PO QHS Nebivolol HCl (Bystolic) 10 Mg Tablet, 10 MG PO QHS Om3/Dha/Epa/Fish/Kril/Lut/Zeax (Megared Adv Total Body Refresh) 375 Mg-350 Mg- 500 Mg-30 Mg Capsule, 2 CAP PO QHS Phentermine/Topiramate (Qsymia 11.25 mg-69 mg Capsule) 1 Each Cpmp.24hr, 1 CAP PO DAILY [Flexuron] , 1 CAP PO QHS [Prevagen] , 10 MG PO DAILY Scheduled PRN Acetaminophen (Acetaminophen) 325 Mg Tablet, 650 MG PO Q4H PRN for PAIN LEVEL 1- 4 Alprazolam (Alprazolam) 0.25 Mg Tablet, 0.25 MG PO QID PRN for ANXIETY Oxycodone HCl (Oxycodone HCl) 5 Mg Tablet, 5 MG PO Q6H PRN for PAIN LEVEL 4-7 Sennosides/Docusate Sodium (Senna-S Tablet) 1 Each Tablet, 1 TAB PO BID PRN for CONSTIPATION Allergies Coded Allergies: Penicillins (Verified Allergy, Unknown, 02/10/21) PATIENT STATES SHE RECEIVED KEFLEX W/NO PROBLEM Sulfa (Sulfonamide Antibiotics) (Verified Allergy, Unknown, 02/07/21) ZEINAB ÁLVAREZ MD Feb 15, 2021 15:52
[2021-02-15] MEDS: HumaLOG INSULIN (NovoLOG) PER UNIT SC SCH (17:30)
[2021-02-15] MEDS ORDERED: GLYCOPYRROLATE INJ 0.2 MG/ML 2 ML VIAL As Ordered ONE (17:39)
[2021-02-15] MEDS ORDERED: NEOSTIGMINE 10MG/10ML VIAL (J2710 PER 0.5MG) As Ordered ONE (17:39)
[2021-02-15] MEDS ORDERED: ONDANSETRON 4MG/2ML VIAL As Ordered ONE (17:39)
[2021-02-15] MEDS ORDERED: hydrALAZINE 20MG/ML 1ML VIAL (J0360 PER 20MG) As Ordered ONE (17:50)
--- NOTE | 2021-02-15 18:45 | REP ---
INDICATION: RIGHT ANKLE FRACTURE. COMPARISON: None. TECHNIQUE: Eleven images were obtained with the C-arm intraoperatively during open reduction and internal fixation of multiple fractures. FINDINGS: ORIF was performed on fractures of the right calcaneus, tibia and fibula. Fluoro time was 222 seconds. The cumulative dose was 10.7 mGy. IMPRESSION: As in findings. <Electronically signed by Freddy House > 02/15/21 [id number]
[2021-02-15] MEDS ORDERED: BUPIVACAINE LIPOSOME/PF 1.3% 20ML VIAL (13.3MG/ML)(EXPAREL)(C9290 PER1MG) As Ordered ONE (18:50)
[2021-02-15] MEDS ORDERED: LR 1,000 ML IV SCH (19:30)
[2021-02-15] MEDS ORDERED: ONDANSETRON 4MG/2ML VIAL IV PRN (19:30)
[2021-02-15] MEDS ORDERED: MORPHINE 2 MG/ML 1ML VIAL (J2270) IV PRN (19:30)
[2021-02-15] MEDS ORDERED: oxyCODONE 5MG TAB PO PRN (19:30)
[2021-02-15] MEDS: fentaNYL 100 MCG/2 ML INJECTION (J3010) IV PRN ×2 (19:37→20:01)
[2021-02-15] MEDS ORDERED: ROPIvacaine 0.5% 30ML INJECTION (J2795 PER 1MG) XX ONE (19:45)
[2021-02-15] MEDS ORDERED: LIDOCAINE 1% MDV 20ML VIAL XX ONE (19:45)
[2021-02-15] MEDS ORDERED: dexameTHASONE 10MG/1ML VIAL PRES.FREE (J1100 PER 1MG) XX ONE (19:45)
[2021-02-15 21:00] VITALS: BP 121/77
[2021-02-15] MEDS ORDERED: HumaLOG INSULIN (NovoLOG) PER UNIT SC SCH (21:00)
[2021-02-15] MEDS: DOCUSATE SODIUM 100MG CAPSULE PO SCH (21:00)
--- NOTE | 2021-02-15 21:30 | RO ---
OPERATIVE NOTE DATE OF OPERATION: 02/15/2021 PREOPERATIVE DIAGNOSIS: Closed right ankle trimalleolar fracture. POSTOPERATIVE DIAGNOSIS: Closed right ankle trimalleolar fracture. NAME OF OPERATION: Right ankle open reduction and internal fixation. SURGEON: Dat Will MD DRIVER SALES: None. SUPERVISING ATTENDING: Dat Will MD FINDINGS: The patient had a trimalleolar right ankle fracture with comminuted distal fibula and fractured posterior malleolus and medial malleolus. INDICATIONS: This was a 60-year-old female who sustained a ground-level fall and a right ankle closed trimalleolar fracture on the January,. The patient was initially placed in an external fixator by Dr. Mojica and she underwent definitive treatment today on the January, for a right open reduction and internal fixation in order to stabilize her right ankle joint. ANESTHESIA: GETA. TOURNIQUET TIME: 77 minutes with a one hour holiday followed by 120 minute tourniquet time. ESTIMATED BLOOD LOSS: 50 mL. IV FLUIDS: Please see anesthesia report. IV ANTIBIOTICS: Please see anesthesia report. CULTURES: None. SPECIMENS: None. IMPLANTS: Synthes. DESCRIPTION OF PROCEDURE: The patient was met in the preoperative holding area where the patient's right lower extremity was signed. The patient's consent was confirmed to be correct. The patient's identity was confirmed to be correct. The patient was then transported to the operating theater where she was placed in a prone position. A safety strap secured the patient to the bed. All bony prominences were well padded. The contralateral lower extremity had an SCD placed. A timeout was called which confirmed the correct patient, correct operative extremity and correct consent. All staff were in agreement. The patient was then draped in the usual sterile fashion. I began the procedure by obtaining fluoroscopic imaging that demonstrates a fracture location and turned our attention to the posterior malleolus. In the prone position, we marked out our skin incision which involved a posteromedial approach just medial to the Achilles tendon and longitudinal in nature. This was approximately 4 inches on the distal leg. I incised the skin sharply and used meticulous hemostasis to make my way to the tarsal tunnel. We then incised the tarsal tunnel, identified the tibial nerve which was retracted medially. I then retracted the flexor hallucis longus laterally to identify the posterior malleus fracture. This was identified. I used a scalpel in order to elevate the periosteum overlying the fracture and posterior malleolus and used thin wires to provisionally reduce our posterior malleolus fracture. Once this was reduced, I obtained fluoroscopic images that showed I was satisfied with the fracture reduction. I then placed a three-hole posterior malleolar plate into position and secured this with thin wires. We confirmed with fluoroscopy that I was satisfied with the plate placement and fracture reduction. We then placed in the apex screw in order to provide buttress effect to the posterior malleolar fracture. I placed two additional cortical screws in the plate in order to secure it to the bone. I then placed two distal cortical screws in order to provide rotational stability of the posterior malleolar fragment. At this point in time, I copiously irrigated the surgical site with three liters normal saline and placed one gram of vancomycin on the plate. We then closed the dermal layer using 2-0 Vicryl and the skin using interrupted 3-0 nylon sutures. At this point in time, maintaining sterility of the posteromedial incision, we undraped the patient and moved into a supine position. A safety strap again secured the patient to the bed. All bony prominences were well padded. The contralateral lower extremity had an SCD placed. Then after a one hour tourniquet holiday, I inflated the tourniquet to 250 mmHg. At this point in time, we turned our attention to the distal fibular fracture. We made a longitudinal incision in line with the distal fibula approximately three inches in length. I incised the skin sharply and used meticulous hemostasis to make my way to the fracture. I then elevated the periosteum in order to identify the comminuted fracture fragments of the distal fibula. There was a large anteromedial fragment of the distal fibula which was displaced significantly which still had attached articular cartilage, indicating that it was from the medial aspect of the patient's distal fibula. This was put into the correct position and secured with a 2.7 mm screw. We then placed a five-hole, distal locking fibular plate in position and secured with thin wires. We obtained fluoroscopic imaging to ensure that we were satisfied with our plate placement as well as the fracture reduction. The plate would be used in a bridging mode. We secured this proximally with three proximal cortical screws and distally with four distal interlocking screws. We then turned our attention to the medial malleolus. We made a one inch incision using a previously made incision for flatfoot reconstruction in order to identify the medial malleolar fracture fragment. Once this was identified, I used a knife in order to elevate the periosteum around the fracture and removed periosteum from the fracture site. I drilled a small master pilot hole proximally to the fracture fragment and using a [id number] bone-reducing clamp in order to provide provisional fixation of the medial malleolus. I then placed two thin wires orthogonal to the fracture site through the medial malleolus and placed two 4.0 mm cannulated partially-threaded 50 mm in length screws in order to provide compression orthogonal to the medial malleolar fracture. Once this was complete, I copiously irrigated all surgical sites to include the lateral incision and medial incision, placed one gram of vancomycin powder on the distal fibular plate and 2 mL of demineralized bone matrix in the comminution where there was minimal bone loss in the distal fibula. We then closed the dermal layers of each incision using 2-0 Vicryl, closed the epidermis using a 3-0 nylon interrupted suture. Of note, prior to my closure, I stressed the patient's ankle and there was no widening of the syndesmosis, indicating that the syndesmosis was intact. At this point in time, I placed Xeroform over each of the surgical incisions followed by gauze and the patient's right lower extremity was placed in a well-padded L and U splint. The patient was then extubated without complication and transported to the postanesthesia care unit. At this point in time, the patient will remain in the patient's L and U splint for a total of two weeks. She will then follow up in the orthopedic clinic on the February, for her L and U splint removal and transition to a Cam boot. We will inspect the incisions at that time for healing. She will follow the ankle open reduction and internal fixation rehabilitative protocol. She will be given pain medications by her internal medicine team here at [facility]. The patient will be educated as far as phones on the floor.
[2021-02-16 00:59] VITALS: BP 133/78
[2021-02-16 05:45] LABS: BASO % 0.1 % (0.0-1.0); HEMOGLOBIN 12.1 g/dl (12.0-15.5); LYMPH # 0.8 10^3/uL (1.5-5.0); LYMPH % 9.1 % (24.0-44.0); MEAN CORPUSCULAR HEMOGLOBIN 31.1 pg (27.0-33.0); MEAN CORPUSCULAR HGB CONC 32.7 g/dl (32.0-36.5); MEAN CORPUSCULAR VOLUME 95.1 fl (80.0-96.0); MONO # 0.3 10^3/uL (0.0-0.8); MONO % 3.2 % (2.0-8.0); NEUTROPHILS # 7.3 10^3/uL (1.5-8.5); NEUTROPHILS % 87.1 % (36.0-66.0); PLATELET COUNT, AUTOMATED 281 10^3/uL (150-450); RED BLOOD COUNT 3.89 10^6/uL (4.00-5.40); WHITE BLOOD COUNT 8.4 10^3/uL (4.0-10.0)
[2021-02-16] MEDS ORDERED: LEVOTHYROXINE 50MCG TABLET (0.05MG) PO SCH (06:00)
[2021-02-16 06:19] LABS: BLOOD UREA NITROGEN 13 MG/DL (7-18); CALCIUM LEVEL 8.9 MG/DL (8.8-10.2); CARBON DIOXIDE LEVEL 24 MEQ/L (21-32); CHLORIDE LEVEL 105 MEQ/L (98-107); CREATININE FOR GFR 0.64 MG/DL (0.55-1.30); GLOMERULAR FILTRATION RATE > 60.0 (>45); GLUCOSE, FASTING 155 MG/DL (70-100); MAGNESIUM LEVEL 1.7 MG/DL (1.8-2.4); POTASSIUM SERUM 4.3 MEQ/L (3.5-5.1); SODIUM LEVEL 138 MEQ/L (136-145)
[2021-02-16 06:30] VITALS: BP 124/70
[2021-02-16] MEDS ORDERED: oxyCODONE 5MG TAB PO PRN (07:30)
[2021-02-16] MEDS ORDERED: MORPHINE 2 MG/ML 1ML VIAL (J2270) IV PRN (07:30)
[2021-02-16] MEDS ORDERED: HOME MED LIST COMPLETE! XX SCH (07:45)
[2021-02-16] MEDS: DOCUSATE SODIUM 100MG CAPSULE PO SCH (08:05)
[2021-02-16] MEDS: HumaLOG INSULIN (NovoLOG) PER UNIT SC SCH ×2 (08:05→12:00)
[2021-02-16] MEDS ORDERED: ASCORBIC ACID 500 MG TAB PO SCH (09:00)
[2021-02-16] MEDS ORDERED: ASPIRIN 81MG ENTERIC TABLET PO SCH (09:00)
[2021-02-16] MEDS ORDERED: ACYCLOVIR 200 MG CAPSULE PO SCH (09:00)
[2021-02-16] MEDS ORDERED: LACTOBACILLUS ACIDOPHILUS CAP (BACID) PO SCH (09:00)
[2021-02-16] MEDS ORDERED: CETIRIZINE (ZyrTEC) 10 MG TAB PO SCH (09:00)
[2021-02-16] MEDS ORDERED: MULTIVITAMINS/MINERALS THERAP 1 TAB PO SCH (09:00)
[2021-02-16] MEDS ORDERED: ALPRAZolam 0.25 MG TAB PO PRN (09:15)
--- NOTE | 2021-02-16 10:52 | DS.PDOC ---
Discharge Summary General Date of Admission 02/15/2021 Date of Discharge 02/16/2021 Discharge Summary PROCEDURES PERFORMED DURING STAY: Right ankle open reduction and internal fixation with Dr. Will on 02/15 ADMITTING DIAGNOSES / DISCHARGE DIAGNOSES: Right ankle fracture - 2/2 mechanical fall and surgical repair on 02/10 and 02/15 HTN Pre-DM2 DLP Hypothyroidism Anxiety Allergic rhinitis Obesity Herpes labialis DVT prophylaxis COMPLICATIONS/CHIEF COMPLAINT: Planned R ankle ORIF procedure HISTORY OF PRESENT ILLNESS: Patient is a 60-year-old female with a PMHx of HTN, Pre-DM2, DLP, Hypothyroidism, Allergic rhinitis, Obesity, Herpes labialis, who presented to [facility] as a direct admission for internal fixation of her right ankle fracture. Patient reported that on 02/09 she was in her backyard when she slipped on a pile of mud, resulting in a severe fracture and dislocation of her right ankle. Imaging at that time revealed a chime malleolus fracture dislocation with fragmentation of the fibula, there also appeared to be a possible support fracture of the anterior lateral tibia. Initially patient received conscious sedation and a closed reduction in the ER and a plaster cast was set. Patient was then taken to the OR for closed reduction and external fixation that night / early AM of 02/10. Patient underwent a closed reduction and application of an external fixator of the right leg and foot with Dr. Mojica on 02/10 early AM. Patient was subsequently discharged after she had cleared physical therapy that afternoon, with instructions to follow-up with orthopedic surgery. Patient has presented to the hospital on 02/15 for follow-up with Dr. Will for closed reduction and internal fixation of her fracture. Hospital service was called for medication management and admission to their service postoperatively. Patient was seen and examined at the bedside. Currently, she reports that her pain is a 6/10. She denies any nausea, vomiting, chest pain, shortness breath, palpitations. Denies abdominal pain, has not had any bowel movements since yesterday. Denies any urinary discomfort. HOSPITAL COURSE: Right ankle fracture - 2/2 mechanical fall and surgical repair on 02/10 and 02/15 - s/p open reduction and external fixation with Dr. Mojica on 02/10 - s/p right ankle open reduction and internal fixation with Dr. Will on 02/15 - Will c/w Oxycodone for pain control; Morphine IV for severe pain while inpatient - Will have PT work with patient and will likely continue with additional PT on discharge - Will have outpatient follow-up with primary care provider and orthopedic surgery within the next 7 days HTN - BP well controlled - Will c/w Nebivolol with hold parameters Pre-DM2 - Will resume Metformin on discharge - Was on ISS while inpatient DLP - c/w [place] 3 fatty acids, Atorvastatin and ASA 81 Hypothyroidism - c/w Levothyroxine Anxiety - c/w Alprazolam PRN Allergic rhinitis - c/w Cetirizine Obesity - Complicating medical care Herpes labialis - c/w Acyclovir DVT prophylaxis - ASA 81 BID as per orthopedic surgery DISCHARGE MEDICATIONS: Please see below. ALLERGIES: Please see below. PHYSICAL EXAMINATION ON DISCHARGE: Vitals (See below) General: Laying in bed and appears to be comfortable without any acute distress, AAOx3 HEENT: NC, AT CVS: +S1S2 Lungs: Fair air entry b/l, no wheezing, rales or rhonchi Abdomen: Soft, ND, NT Extremities: No edema appreciated at left lower extremity, RLE with cast / split in place LABORATORY DATA: Please see below. ACTIVITY: [As tolerated]. DISCHARGE PLAN: Follow-up with primary care provider and orthopedic surgery within the next 7 days Remain compliant with treatment plan and medications Return to the ER if you experience any problems DISPOSITION: Home with services DISCHARGE CONDITION: [Stable]. TIME SPENT ON DISCHARGE: 35 minutes. Vital Signs/I&Os Vital Signs Date Time Temp Pulse Resp B/P (MAP) Pulse Ox O2 Delivery O2 Flow Rate FiO2 02/16/21 08:36 18 02/16/21 06:30 97.5 90 124/70 (88) 94 02/15/21 21:00 Nasal Cannula 2.0 I&O- Last 24 Hours up to 6 AM 02/16/21 06:00 Intake Total 2660 ml Output Total 1775 ml Balance 885 ml Laboratory Data Labs 24H Laboratory Tests 2 02/16/21 04:16: Bedside Glucose (Misc Panel) 177H 02/16/21 05:13: Immature Granulocyte % (Auto) 0.5, Neutrophils (%) (Auto) 87.1H, Lymphocytes (%) (Auto) 9.1L, Monocytes (%) (Auto) 3.2, Eosinophils (%) (Auto) 0.0, Basophils (%) (Auto) 0.1, Neutrophils # (Auto) 7.3, Lymphocytes # (Auto) 0.8L, Monocytes # (Auto) 0.3, Eosinophils # (Auto) 0.0, Basophils # (Auto) 0.0, Nucleated Red Blood Cells % (auto) 0.0, Anion Gap 9, Glomerular Filtration Rate > 60.0, Calcium Level 8.9, Magnesium Level 1.7L CBC/BMP Laboratory Tests 02/16/21 05:13 FSBS Laboratory Tests Test 02/16/21 04:16 Range/Units Bedside Glucose (Misc Panel) 177 80-115 MG/DL Discharge Medications Scheduled Acyclovir (Acyclovir) 400 Mg Tablet, 400 MG PO DAILY, (Reported) Ascorbic Acid (Vitamin C) 500 Mg Tablet, 500 MG PO DAILY, (Reported) Aspirin (Aspirin EC) 81 Mg Tablet.dr, 81 MG PO BID, (Reported) Atorvastatin Calcium (Atorvastatin Calcium) 40 Mg Tablet, 40 MG PO QHS, (Reported) Calcium Carbonate (Calcium) 600 Mg Tablet, 600 MG PO QHS, (Reported) Cetirizine HCl (ZyrTEC) 10 Mg Capsule, 10 MG PO DAILY, (Reported) Folic Acid/Vit B Complex and C (Super B Complex Tablet) 400 Mcg Tablet, 1 TAB PO DAILY, (Reported) Lactobacillus Combo No.11 (Probiotic) 1 Each Cap.sprink, 1 CAP PO DAILY, (Reported) Levothyroxine Sodium (Levothyroxine Sodium) 50 Mcg Tablet, 50 MCG PO DAILY, (Reported) Metformin HCl (Metformin HCl) 500 Mg Tablet, 500 MG PO BID, (Reported) Multivitamin (Multivitamin) 1 Each Tablet, 2 TABS PO QHS, (Reported) Nebivolol HCl (Bystolic) 10 Mg Tablet, 10 MG PO QHS, (Reported) Om3/Dha/Epa/Fish/Kril/Lut/Zeax (Megared Adv Total Body Refresh) 375 Mg-350 Mg- 500 Mg-30 Mg Capsule, 2 CAP PO QHS, (Reported) Phentermine/Topiramate (Qsymia 11.25 mg-69 mg Capsule) 1 Each Cpmp.24hr, 1 CAP PO DAILY, (Reported) [Flexuron] , 1 CAP PO QHS, (Reported) [Prevagen] , 10 MG PO DAILY, (Reported) Scheduled PRN Acetaminophen (Acetaminophen) 325 Mg Tablet, 650 MG PO Q4H PRN for PAIN LEVEL 1- 4, (Reported) Alprazolam (Alprazolam) 0.25 Mg Tablet, 0.25 MG PO QID PRN for ANXIETY, (Reported) Oxycodone HCl (Oxycodone HCl) 5 Mg Tablet, 5 MG PO Q6H PRN for PAIN LEVEL 4-7, (Reported) Sennosides/Docusate Sodium (Senna-S Tablet) 1 Each Tablet, 1 TAB PO BID PRN for CONSTIPATION, (Reported) Allergies Coded Allergies: Penicillins (Verified Allergy, Unknown, 02/10/21) PATIENT STATES SHE RECEIVED KEFLEX W/NO PROBLEM Sulfa (Sulfonamide Antibiotics) (Verified Allergy, Unknown, 02/07/21) ZEINAB ÁLVAREZ MD Feb 16, 2021 10:52
[2021-02-16] MEDS ORDERED: OXYC-517 PO (12:05)
[2021-02-16] MEDS ORDERED: ATORVASTATIN 20 MG TAB PO SCH (21:00)
[2021-02-16] MEDS ORDERED: NEBIVOLOL 5 MG TAB (BYSTOLIC) PO SCH (21:00)
[2021-02-16] MEDS ORDERED: OMEGA-3 1000MG CAPSULE PO SCH (21:00)
== END 2021-02-16 13:00 | disposition home health service (06) ==
LOC: M SDC 08:13 → M MS5PR 08:29 → M SDC 15:47 → M MS5PR 15:48 → M SDC 02-16 13:00 → M MS5PR 02-16 13:00
PROVIDERS: ADMIT Internal Medicine; ATTEND Orthopaedic Surgery
DX: S82.851A Displaced trimalleolar fracture of right lower leg, initial encounter for closed fracture (principal); W18.30XA Fall on same level, unspecified, initial encounter; Y92.017 Garden or yard in single-family (private) house as the place of occurrence of the external cause; Y93.9 Activity, unspecified; Y99.9 Unspecified external cause status; I10 Essential (primary) hypertension; R73.03 Prediabetes; E03.9 Hypothyroidism, unspecified; J30.9 Allergic rhinitis, unspecified; E66.9 Obesity, unspecified; A60.1 Herpesviral infection of perianal skin and rectum; E78.5 Hyperlipidemia, unspecified; G47.30 Sleep apnea, unspecified; Z87.891 Personal history of nicotine dependence; Z79.82 Long term (current) use of aspirin; Z79.899 Other long term (current) drug therapy; Z79.84 Long term (current) use of oral hypoglycemic drugs; Z88.0 Allergy status to penicillin; Z88.2 Allergy status to sulfonamides
CPT/HCPCS: 27822; 36415; 76000; 80048; 83735; 85025; 97161; C1713; C1762; C9290; J0131; J0360; J0690; J1100; J1170; J2250; J2370; J2405; J2710; J2765; J2795; J3010; J3370; U0002

== ENCOUNTER → 2021-02-27 | Outpatient (CLI) | payer OTHER ==
[~2021-02-27] MED LIST changes: +ASPI81TA26 PO; -MIDAZOLAM INJ 2MG/2ML VIAL (J2250 PER 1MG) IV PRN; -fentaNYL 100 MCG/2 ML INJECTION (J3010) IV PRN
--- NOTE | 2021-02-27 13:50 | REP ---
INDICATION: RT ANKLE SURGERY AFTERCARE. COMPARISON: 02/09/2021 a pre operative exam TECHNIQUE: Three views with casting material in place FINDINGS: The overlying material obscures the bony detail. Since the last examination the patient has undergone ORIF. Previously described fractures have been openly reduced and internally fixed with internal fixation plate and multiple screws. The alignment is near anatomical. IMPRESSION: As above. <Electronically signed by Walter Hunter > 02/27/21 [id number]
== END ==
LOC: M SOG 09:16
PROVIDERS: ATTEND Orthopaedic Surgery
DX: Z48.89 Encounter for other specified surgical aftercare (principal)

== ENCOUNTER → 2021-03-06 | Outpatient (CLI) | payer OTHER ==
--- NOTE | 2021-03-06 12:21 | REP ---
INDICATION: RT ANKLE SURGICAL AFTERCARE. COMPARISON: 02/09/2021 TECHNIQUE: AP, lateral, oblique views of the right ankle. FINDINGS: Satisfactory open reduction and fixation for trimalleolar fractures. Overlying soft tissue swelling noted. IMPRESSION: Satisfactory open reduction and fixation. Continued soft tissue swelling. <Electronically signed by Eulogio Christiansen > 03/06/21 0765
== END ==
LOC: M SOG 11:34
PROVIDERS: ATTEND Student in an Organized Health Care Education/Training Program
DX: Z47.89 Encounter for other orthopedic aftercare (principal)

== ENCOUNTER → 2021-03-13 | Outpatient (CLI) | payer OTHER ==
--- NOTE | 2021-03-14 03:14 | REP ---
INDICATION: RT ANKLE SURGICAL AFTERCARE. COMPARISON: 03/06/2021 TECHNIQUE: AP, lateral, oblique views of the right ankle FINDINGS: Patient is again noted to be status post satisfactory open reduction and fixation for trimalleolar fractures. No significant change from prior examination. Mild soft tissue swelling again noted. No obvious subcutaneous emphysema. IMPRESSION: Stable satisfactory appearance to trimalleolar fracture fixation. <Electronically signed by Eulogio Christiansen > 03/14/21 [id number]
== END ==
LOC: M SOG 13:50
PROVIDERS: ATTEND Orthopaedic Surgery
DX: Z47.89 Encounter for other orthopedic aftercare (principal)

== ENCOUNTER → 2021-03-28 | Outpatient (REF) | payer OTHER ==
[2021-03-28 17:45] LABS: AMORPHOUS SEDIMENT SMALL (NEGATIVE); APPEARANCE, URINE CLOUDY (CLEAR); BACTERIA, URINE AUTO NEGATIVE (NEGATIVE); BILIRUBIN, URINE AUTO NEGATIVE (NEGATIVE); BLOOD, URINE BLOOD NEGATIVE (NEGATIVE); COLOR, URINE AMBER (YELLOW); GLUCOSE, URINE (UA) AUTO NEGATIVE (NEGATIVE); KETONE, URINE AUTO NEGATIVE (NEGATIVE); LEUKOCYTE ESTERASE, URINE AUTO NEGATIVE (NEGATIVE); NITRITE, URINE AUTO NEGATIVE (NEGATIVE); PROTEIN, URINE AUTO NEGATIVE (NEGATIVE); RBC, URINE AUTO 1 /HPF (0-3); SPECIFIC GRAVITY URINE AUTO 1.017 (1.002-1.035); SQUAMOUS EPITHELIAL CELL UR AU 0 /HPF (0-6); UROBILINOGEN, URINE AUTO 0.2 mg/dL (0.0-2.0); WBC, URINE AUTO 0 /HPF (0-3)
== END ==
LOC: M SMT 16:52
PROVIDERS: ATTEND Nurse Practitioner Women's Health
DX: N20.0 Calculus of kidney (principal)

== ENCOUNTER → 2021-04-01 | Outpatient (CLI) | payer OTHER ==
--- NOTE | 2021-04-01 15:54 | REP ---
INDICATION: ORTHOPEDIC AFTERCARE. COMPARISON: 03/13/2021 TECHNIQUE: Three views FINDINGS: S/p ORIF status quo. IMPRESSION: No significant change the prior exam. No acute abnormality <Electronically signed by Walter Hunter > 04/01/21 5224
== END ==
LOC: M SOG 08:04
PROVIDERS: ATTEND Orthopaedic Surgery
DX: Z47.89 Encounter for other orthopedic aftercare (principal)

== ENCOUNTER → 2021-04-05 | Outpatient (CLI) | payer OTHER ==
[~2021-04-05] MED LIST changes: +D200CAP3 PO; +HEAL1TAB6 PO; +VITA100091 PO; +VITA500030 PO; +balance of nature PO
== END ==
LOC: M LABSMTC 11:44
PROVIDERS: ATTEND Anesthesiology
DX: Z01.812 Encounter for preprocedural laboratory examination (principal); Z20.822 Contact with and (suspected) exposure to COVID-19

== ENCOUNTER 2021-04-10 07:11 | Day surgery (SDC) | payer OTHER ==
[~2021-04-10] VITALS: Ht 165.1 cm; Wt 86.6 kg
[~2021-04-10 07:11] MED LIST changes: +LR 1,000 ML IV ONE; +ceFAZolin SOD 2 GM in IV 1 EA IV ONE
--- OUTSIDE RECORDS SUMMARY | 2021-04-10 07:18 | CCD ---
Author Author [facility] Organization [facility] [employer] Address Unknown Phone Unavailable Care Team Providers Care Fence Supervisor Name Role Phone Elmer Foreman Unavailable PROBLEMS Type Condition ICD9-CM Code [id number] Code Onset Dates Condition S tatus W/U Status Risk SNOMED Code Notes Problem ALVARO (generalized anxiety disorder) F41.1 Activ e confirmed 03925722 Problem Kidney stone N20.0 Active confirmed 3010978 7 Problem Renal calculi N20.0 Active confirmed 853004 07 Problem Obesity (BMI 30.0-34.9) E66.9 Active confirmed 253433926948294 Problem Hypothyroidism (acquired) E03.9 Active confirmed [id number] ALLERGIES Allergen (clinical drug ingredient) Drug/Non Drug Allergy do cumented on EMR Reaction Allergy Type Onset Date Status Sulfasalazine Sulfa Antibiotics Itching Drug Allergy Ac tive ENCOUNTERS from 1960 to 2021-04-04 Encounter Location Date Provider Diagnosis [facility] [phone] [place] [address] Mar, Elmer Foreman Kidney stone N20.0 IMMUNIZATIONS Vaccine Route Administration Date Status Moderna #1 dose COVID-19 (given elsewhere) SARSCOV2 VAC 100M CG/0.5ML IM Unknown September 15, 2020 Administered Moderna #2 dose COVID-19 (given elsewhere) SARSCOV2 VAC 100M CG/0.5ML IM Unknown October 09, 2020 Administered Influenza Pharmacy Given Unknown Jan 25, 2020 Adminis tered SOCIAL HISTORY Tobacco Use: Social History Observation Description Date Details (start date - stop date) Never Smoker Sex Assigned At : Social History Observation Description Sex Assigned At Unknown Audit Question Answer Notes Total Score: 4 Interpretation: Alcohol Education Christianity: Question Answer Notes Christianity 21 Sikhism No gnosticism beliefs that would impact health care. Drug and Alcohol Question Answer Notes Total Score: 0 Interpretation: No problems reported Alcohol Screening: Question Answer Notes Did you have a drink containing alcohol in the past year? Ye s Points 2 Interpretation Negative How often did you have six or more drinks on one occas ion in the past year? Never (0 points) How many drinks did you have on a typica l day when you were drinking in the past year? 1 or 2 (0 points) How often did you have a drink containing alcohol in t he past year? Two to four times a month (2 points) Tobacco Use: Question Answer Notes Are you a: never smoker REASON FOR REFERRAL No Information VITAL SIGNS No information MEDICATIONS Medication SIG (Take, Route, Frequency, Duration) Notes Start Da te End Date Status Xanax 0.25 MG 1 tablet Orally prn q6h MDD 4 for 10 day(s) Dec, Active HYDROcodone-Acetaminophen 5-325 MG 1 tablet as needed Orally every 6 hrs for 3 day(s) Feb, Not-Taking Percocet 5-325 MG 1 tablet as needed Orally ev crystal 6 hrs, prn pain, MDD 4 for 7 day(s) Jan, Not-Taking Acyclovir 400 MG 1 tablet Orally once a day for 30 days prn Active Ibuprofen 600 MG 1 tablet with food or milk a s needed Orally every 6 hours prn pain for 7 day(s) Jan, Active ZyrTEC Allergy 10 MG 1 tablet Orally Once a day for 30 day(s) Active Qsymia 11.25-69 MG 1 capsule Orally Once a day for 90 day(s) Feb, Active Magnesium - Magtene Orally bid Activ e Synthroid 50 MCG 1 tablet in the morning on a n empty stomach Orally Once a day for 90 day(s) Active Krill Oil 500 MG 3 caps Orally once a day Active Vitamin D-[address] 25 MCG (1000 UT) 5 tabs in the a m and 1 tab in the pm Orally Active Aspirin 81 MG 1 tablet Orally twice a day Active Vegetable Capsule #0 Green - 3 caps daily Active Hair Skin Nails - 2 caps Orally once a day Active Probiotic-Prebiotic 1-250 BILLION-MG as directed Orally Active Super B Complex once a day Active Tamsulosin HCl 0.4 MG 1 capsule Orally Once a day for 5 day(s) Feb, Not-Taking Vitamin C 1000 MG 1 tablet Orally Once a day for 30 day(s) Active Bystolic 10 MG 1 tablet Orally Once a day for 90 day(s) Active metFORMIN HCl 500 MG 1 tablet with a meal Orally twice a day for 90 day(s) Active Atorvastatin Calcium 40 MG 1 tablet Orally Once a day for 90 day(s) Active Prevagen 10 MG as directed Orally Ac tive Calcium 600 MG 1 tablet with meals Orally Once a day Active Flexi Joint - as directed Orally Act sander PROCEDURES No Information RESULTS No Results REASON FOR VISIT kub order MEDICAL (GENERAL) HISTORY Type Description Date Medical History Hypothyroidism Medical History High cholesterol Medical History allergic rhinitis Medical History HTN Medical History Oral - Cold sores Medical History ALVARO Medical History Obesity Medical History Herpes Labialis Surgical History Right wrist arthritic surgery Surgical History Right foot reconstruction Surgical History left ankle reconstruction Surgical History Left knee: torn ACL and meniscus ankle a nd foot repair Surgical History Vascular surgery - varicose veins 2018 Surgical History colonoscopy in 40s Surgical History Thyroid biopsies with ENT: Dr. Arreguin 01/10 21 Surgical History Right ankle ORIF 01/2021 Hospitalization History Surgical Goals Section No Information Health Concerns No Information MEDICAL EQUIPMENT No Information MENTAL STATUS No Information FUNCTIONAL STATUS No Information ASSESSMENTS Encounter Date Diagnosis Assessment Notes Treatment Notes Treatm ent Clinical Notes Mar, Kidney stone (ICD-10 - N20.0) PLAN OF TREATMENT Future Test Test Name Order Date XRAY ABDOMEN, FLAT PLATE KUB XR.ABDP PLZ or SMC [id number] Next Appt Details Provider Name:Isatu Janes Escalante, 2021-04-23 3 08:30:00 AM, [address], , [place], [address], Insurance Providers Payer Name Payer Address Payer Phone Insured Name Patient Relati onship to Insured Coverage Start Date Coverage End Date [facility] [address] [facility] [id number] SIMEON RAYMOND
--- OUTSIDE RECORDS SUMMARY | 2021-04-10 07:18 | CCD | Continuity of Care Document ---
Author Author Anne WILL MD Organization Unknown Address [address] , [facility] [place] [address] Phone [phone] Care Team Providers Care Bias Cutting Machine Operator Vertical Name Role Phone Amy Swenson.N.P.-C. AUTM [phone] Central Scheduling AUTM [phone] AUTM Unavailable Problems Active Problems Provider Date Essential hypertension Santana Arreguin MD Onset: 12/24/2020 Social History Type Date Description Comments Sex Unknown ETOH Use 1 A Day Tobacco Use Start: Unknown Non Smoker Recreational Drug Use Denies Drug Use Tobacco Use Start: Unknown End: Unknown Patient is a former smoker Allergies and adverse reactions Active Allergies Criticality Reaction | Severity Comments Date Seasonal Unable to assess criticality 12/24/2020 Sulfa Unable to assess criticality Itching 02/27/2021 Penicillins Unable to assess criticality Itching 02/27/2021 Medications Active Medications SIG Qnty Indications Ordering Provide r Date Super B-Complex Capsules Unknown Tamsulosin HCL 0.4mg Capsules Take One Capsule By Mouth Once A Day Unknown Hydrocodone Bitartrate/Acetaminophen 5-325mg Tablets Amy Swenson, F.N.P.-C. Prevagen 10mg Capsules Unknown Probiotic Capsules Unknown Hair Skin Nails Capsules Unknown Vitamin D3 125mcg (5000 Ut) Capsul es once daily am Unknown Vitamin D3 25mcg (1000 Ut) Chewtab s one daily in pm Unknown Aspirin 81 Low Dose 81mg Chewtabs 2 by mouth every day Unknown Vitamin C 1000mg Tablets 1 by mouth every day Unknown Qsymia 11.25-69mg Caps ER 24HR Take 1 Capsule By Mouth Once Daily Maximum Daily Dose 1 Capsule Unknown Calcium 600 600mg Tablets Unknown Zyrtec Allergy 10mg Tablets take on by mouth every day as needed seasonal allergies Unk nown Megared Superior Purchase-3 Krill Oil Extra Strength 500mg Capsules Unknown 0 Xanax 0.5mg Tablets 1 tab every 4 hours as needed for anxiety Unknown Acyclovir 400mg Tablets 1 tab by mouth three times daily Unknown Synthroid 50mcg Tablets Unknown Metformin HCL 500mg Tablets Unknown Atorvastatin Calcium 40mg Tablets Unknown Bystolic 10mg Tablets Amy Swenson F.N.PMelissa Immunizations Description No Information Available Vital Signs Date Vital Result Comment 03/13/2021 1:21pm Body Temperature 97.6 F 02/27/2021 1:13pm Body Temperature 96.9 F Results Test Acquired Date Facility Test Result H/L Range Note Laboratory test finding 02/16/2021 [facility] [address] [place], [place] [id number] [phone] Bedside Glucose 142 mg/dL High 80-115 CBC With Differential 02/16/2021 [facility] [address] [place], [place] [id number] [phone] White Blood Count 8.4 10 Normal 4.0-10.0 Red Blood Count 3.89 10 Low 4.00-5.40 Hemoglobin 12.1 g/dL Normal 12.0-15.5 Hematocrit 37.0 % Normal 36.0-47.0 Mean Corpuscular Volume 95.1 fl Normal 80.0-96.0 Mean Corpuscular Hemoglobin 31.1 pg Normal 27.0-33.0 Mean Corpuscular HGB Conc 32.7 g/dL Normal 32.0-36.5 Red Cell Distribution Width 12.6 % Normal 11.5-14.5 Platelet Count, Automated 281 10 Normal 150-450 Neutrophils % 87.1 % High 36.0-66.0 Lymph % 9.1 % Low 24.0-44.0 [place] % 3.2 % Normal 2.0-8.0 Eos % 0.0 % Normal 0.0-3.0 Baso % 0.1 % Normal 0.0-1.0 Immature Granulocyte % 0.5 % Normal 0-3.0 Nucleated Red Blood Cell % 0.0 % Normal 0-0 Neutrophils # 7.3 10 Normal 1.5-8.5 Lymph # 0.8 10 Low 1.5-5.0 Fayette # 0.3 10 Normal 0.0-0.8 Eos # 0.0 10 Normal 0.0-0.5 Baso # 0.0 10 Normal 0.0-0.2 Basic Metabolic Profile 02/16/2021 [facility] [address] [place] [address] [id number] [phone] Glucose, Fasting 155 mg/dL High 70-100 Blood Urea Nitrogen 13 mg/dL Normal 7-18 Creatinine For GFR 0.64 mg/dL Normal 0.55-1.30 Glomerular Filtration Rate > 60.0 Normal >45 1 Sodium Level 138 mEq/L Normal 136-145 Potassium Serum 4.3 mEq/L Normal 3.5-5.1 Chloride Level 105 mEq/L Normal 98-107 Carbon Dioxide Level 24 mEq/L Normal 21-32 Anion Gap 9 mEq/L Normal 8-16 Calcium Level 8.9 mg/dL Normal 8.8-10.2 Laboratory test finding 02/16/2021 [facility] [address] [place] [address] [id number] [phone] Magnesium Level 1.7 mg/dL Low 1.8-2.4 Laboratory test finding 02/16/2021 [facility] [address] [place], [place] [id number] [phone] Bedside Glucose 177 mg/dL High 80-115 Laboratory test finding 02/15/2021 [facility] [address] [place] [address] [id number] [phone] Coronavirus 2019 Nasopharygeal <pending> 2 Sars Covid-19 Amplification NEGATIVE Normal Negative 3 Laboratory test finding 12/24/2020 [facility] [address] [place] [phone] Non Speech And Language Tutor/Cytology Req For Niki (SEE NOTE) 4 1 Units are mL/min/1.73 m2 Chronic Kidney Disease Staging per NKF: Stage I & II GFR >=60 Normal to Mildly Decreased Stage III GFR 30-59 Moderately Decreased Stage IV GFR 15-29 Severely Decreased Stage V GFR <15 Very Little GFR Left ESRD GFR <15 on LUNCHROOM MOTHER 2 Comments: PREOP SCREENING By: FLOOR NURSE Time: 0641 3 A false negative result may occur if a specimen is improperly collected, transported or handled. False negative results may also occur if inadequate numbers of organisms are present in the specimen. As with any molecular test, mutations within the target regions of Xpert Xpress SARS-CoV-2 could affect primer and/or probe binding resulting in failure to detect the presence of virus. This test cannot rule out diseases caused by other bacterial or viral pathogens. DISCLAIMER: Testing was performed using the [employer] SARS-CoV-2 test. This test was developed and its performance characteristics determined by [employer]. This test has not been FDA cleared or approved. This test has been authorized by FDA under an Emergency Use Authorization (EUA). This test is only authorized for the duration of time the declaration that circumstances exist justifying the authorization of the emergency use of in vitro diagnostic tests for detection of SARS-CoV-2 virus and/or diagnosis of COVID-19 infection under section 564(b)(1) of the Act, 21 U.S.C. 360bbb-3(b)(1), unless the authorization is terminated or revoked sooner. 4 SPECIMEN: FNA Rig ht lobe thyroid nodule Cytolyt (light pink) and prepared slides received SPECIMEN ADEQUACY: Satisfactory for evaluation CATEGORIZATION: Benign DESCRIPTIONS: Groups of follicular cells noted, some exhibiting hurthle cell changes. The background consists of scattered macrophages, lymphocytes, and blood elements. COMMENTS: 12/25/2020 - 825 Signed NUNU DELAROSA(ASCP) 12/25/2020 07 (Prelim) Signed TESHA HANNON MD 12/25/2020 0852 Procedures Date Code Description Status 12/31/2020 81772 Office/Outpatient Established Lo w MDM 20-29 Min Completed 12/24/2020 50897 Office/Outpatient New Low MDM 30 -44 Minutes Completed 12/24/2020 37084 Fine Needle Aspiration Biopsy In lcd Ultrasound Guidance Completed Medical Devices Description No Information Available Encounters Type Date Location Provider Dx Diagnosis Office Visit 03/06/2021 11:00a [facility] Aleksandr Phoenix Z47.89 Encounter for other orthopedic aftercare Office Visit 02/27/2021 1:15p [facility] Dat Will MD Z47.89 Encounter for other orthopedic aftercare Office Visit 12/31/2020 10:10a [facility] Santana Arreguin MD E04.2 Nontoxic multinodular goiter Office Visit 12/24/2020 2:30p [facility] Santana Arreguin MD E04.2 Nontoxic multinodular goiter Assessments Date Code Description Provider 03/13/2021 Z47.89 Encounter for other orthopedic a brandon Will MD 03/06/2021 Z47.89 Encounter for other orthopedic a ftercare Bhupendra Kirkland MD 02/27/2021 Z47.89 Encounter for other orthopedic a dilipare Dat Will MD 12/31/2020 E04.2 Nontoxic multinodular goiter Nor milka Arreguin MD 12/24/2020 E04.2 Nontoxic multinodular goiter Nor milka Arreguin MD Plan of Treatment Future Appointment(s):* 04/01/2021 1:00 pm - Dat Will MD at [facility] 03/13/2021 - Dat Will MD* Z47.89 Encounter for other orthopedic aftercare Functional Status Description No Information Available Mental Status Description No Information Available Referrals Refer to Reason for Referral Status Appt Date Santana Arreguin M.D. Thyroid mass on US Closed [address] [place] [address] [phone]"
--- OUTSIDE RECORDS SUMMARY | 2021-04-10 07:18 | CCD ---
Author Author [facility] [employer] [facility] Organization [facility] [employer] [facility] Address Unknown Phone Unavailable Care Team Providers Care Dye Padder Operator Name Role Phone Steverosa elena Amy Unavailable PROBLEMS ALLERGIES ENCOUNTERS from 1960 to 2021-04-05 IMMUNIZATIONS SOCIAL HISTORY REASON FOR REFERRAL No Information VITAL SIGNS MEDICATIONS PROCEDURES No Information RESULTS No Results REASON FOR VISIT MEDICAL (GENERAL) HISTORY Goals Section Health Concerns MEDICAL EQUIPMENT No Information MENTAL STATUS FUNCTIONAL STATUS ASSESSMENTS No Information PLAN OF TREATMENT Insurance Providers
--- OUTSIDE RECORDS SUMMARY | 2021-04-10 07:18 | CCD ---
Author Author [facility] [employer] Organization [facility] [employer] [facility] Address Unknown Phone Unavailable Care Team Providers Care Station Attendant Name Role Phone Isatu Escalante Unavailable PROBLEMS ALLERGIES ENCOUNTERS from 1960 to 2021-04-03 IMMUNIZATIONS SOCIAL HISTORY REASON FOR REFERRAL No Information VITAL SIGNS MEDICATIONS PROCEDURES No Information RESULTS REASON FOR VISIT MEDICAL (GENERAL) HISTORY Goals Section Health Concerns MEDICAL EQUIPMENT No Information MENTAL STATUS FUNCTIONAL STATUS ASSESSMENTS PLAN OF TREATMENT Insurance Providers
--- OUTSIDE RECORDS SUMMARY | 2021-04-10 07:18 | CCD | Continuity of Care Document ---
Author Author Anne WILL MD Organization Unknown Address [address] , [facility] [place] [address] Phone [phone] Care Team Providers Care Forester Aide Name Role Phone Amy Swenson.N.P.-C. AUTM Central Scheduling AUTM [phone] AUTM Unavailable Problems Active Problems Provider Date [...] needed seasonal allergies Unk nown Megared Superior [place]-3 Krill Oil Extra Strength 500mg Capsules Unknown [...] H/L Range Note Laboratory test finding 02/16/2021 [facility] Main Lab [address] [place], [place] [id number] [phone] Bedside Glucose 142 mg/dL High 80-115 CBC With Differential 02/16/2021 [facility] Main Lab [address] [place], [place] 6236229 [phone] White Blood Count 8.4 10 Normal 4.0-10.0 [...] 36.0-66.0 Lymph % 9.1 % Low 24.0-44.0 [place] % 3.2 % Normal 2.0-8.0 Eos % 0.0 % Normal 0.0-3.0 Baso % 0.1 % Normal 0.0-1.0 Immature Granulocyte % 0.5 % Normal 0-3.0 Nucleated Red Blood Cell % 0.0 % Normal 0-0 Neutrophils # 7.3 10 Normal 1.5-8.5 Lymph # 0.8 10 Low 1.5-5.0 [place] # 0.3 10 Normal 0.0-0.8 Eos # 0.0 10 Normal 0.0-0.5 Baso # 0.0 10 Normal 0.0-0.2 Basic Metabolic Profile 02/16/2021 [facility] Main Lab [address] [place] [address] [phone] Glucose, Fasting 155 mg/dL High 70-100 Blood [...] mg/dL Normal 8.8-10.2 Laboratory test finding 02/16/2021 [facility] Lab [address] [place] [address] [phone] Magnesium Level 1.7 mg/dL Low 1.8-2.4 Laboratory test finding 02/16/2021 [facility] Lab [address] [place], [place] 2430888 [phone] Bedside Glucose 177 mg/dL High 80-115 Laboratory test finding 02/15/2021 [facility] Lab [address] [place] [address] [id number] [phone] Coronavirus 2019 Nasopharygeal <pending> 2 Sars Covid-19 Amplification NEGATIVE Normal Negative 3 Laboratory test finding 12/24/2020 [facility] Main Lab [address] [place] [address] [phone] Non Fence Supervisor/Cytology Req For Niki (SEE NOTE) 4 1 Units are mL/min/1.73 m2 Chronic Kidney Disease Staging per NKF: Stage I & II GFR >=60 Normal to Mildly Decreased Stage III GFR 30-59 Moderately Decreased Stage IV GFR 15-29 Severely Decreased Stage V GFR <15 Very Little GFR Left ESRD GFR <15 on INDUSTRIAL PSYCHOLOGIST 2 Comments: PREOP SCREENING By: FLOOR NURSE [...] pathogens. DISCLAIMER: Testing was performed using the [employer] SARS-CoV-2 test. This test was developed and its performance characteristics determined by [employer]. This test has not been FDA cleared [...] 0852 Procedures Date Code Description Status 12/31/2020 19161 Office/Outpatient Established Lo w MDM 20-29 Min Completed 12/24/2020 02155 Office/Outpatient New Low MDM 30 -44 Minutes Completed 12/24/2020 93699 Fine Needle Aspiration Biopsy In lcd Ultrasound Guidance Completed Medical Devices Description No Information Available Encounters Type Date Location Provider Dx Diagnosis Office Visit 03/13/2021 1:15p [facility] Dat Will MD Z47.89 Encounter for other orthopedic aftercare Office Visit 03/06/2021 11:00a [facility] Aleksandr Phoenix Z47.89 Encounter for other orthopedic aftercare Office Visit 02/27/2021 1:15p [facility] Dat Will MD Z47.89 Encounter for other orthopedic aftercare Office Visit 12/31/2020 10:10a [facility] Santana Arreguin MD E04.2 Nontoxic multinodular goiter Office Visit 12/24/2020 2:30p [facility] Santana Arreguin MD E04.2 Nontoxic multinodular goiter Assessments Date Code Description Provider 03/13/2021 Z47.89 Encounter for other orthopedic a brandon Will MD 03/06/2021 Z47.89 Encounter for other orthopedic a ftercare Bhupendra Kirkland MD 02/27/2021 Z47.89 Encounter for other orthopedic a brandon Will MD 12/31/2020 E04.2 Nontoxic multinodular goiter Nor milka Arreguin MD 12/24/2020 E04.2 Nontoxic multinodular goiter Nor milka Arreguin MD Plan of Treatment Future Appointment(s):* 04/01/2021 1:00 pm - Dat Will MD at [facility] 03/13/2021 - Dat Will MD* Z47.89 Encounter for other orthopedic aftercare Functional Status Description No Information Available Mental Status Description No Information Available Referrals Refer to Dr Reason for Referral Status Appt Date Santana Arreguin M.D. Thyroid mass on US Closed [address] [address] [phone]"
--- OUTSIDE RECORDS SUMMARY | 2021-04-10 07:18 | CCD | Continuity of Care Document ---
Author Author Anne WILL MD Organization Unknown Address [address] , [facility] [place] [address] Phone [phone] Care Team Providers Care Recep Name Role Phone Amy Swenson.N.P.-C. AUTM Central Scheduling AUTM [phone] AUTM Unavailable Problems Active Problems Provider Date [...] needed seasonal allergies Unk nown Megared Superior [place]-3 Krill Oil Extra Strength 500mg Capsules Unknown [...] H/L Range Note Laboratory test finding 02/16/2021 [facility] Main Lab [address] [place], [place] [phone] [phone] Bedside Glucose 142 mg/dL High 80-115 CBC With Differential 02/16/2021 [facility] Main Lab [address] [place], [place] 9242343 [phone] White Blood Count 8.4 10 Normal 4.0-10.0 [...] 36.0-66.0 Lymph % 9.1 % Low 24.0-44.0 [place] % 3.2 % Normal 2.0-8.0 Eos % 0.0 % Normal 0.0-3.0 Baso % 0.1 % Normal 0.0-1.0 Immature Granulocyte % 0.5 % Normal 0-3.0 Nucleated Red Blood Cell % 0.0 % Normal 0-0 Neutrophils # 7.3 10 Normal 1.5-8.5 Lymph # 0.8 10 Low 1.5-5.0 [place] # 0.3 10 Normal 0.0-0.8 Eos # 0.0 10 Normal 0.0-0.5 Baso # 0.0 10 Normal 0.0-0.2 Basic Metabolic Profile 02/16/2021 [facility] Main Lab [address] [place] [address] 7270230 [phone] Glucose, Fasting 155 mg/dL High 70-100 Blood [...] mg/dL Normal 8.8-10.2 Laboratory test finding 02/16/2021 [facility] Main Lab [address] [place] [address] [phone] Magnesium Level 1.7 mg/dL Low 1.8-2.4 Laboratory test finding 02/16/2021 [facility] Main Lab [address] [place], [place] 5823658 [phone] Bedside Glucose 177 mg/dL High 80-115 Laboratory test finding 02/15/2021 [facility] Main Lab [address] [place] [address] 1458514 [phone] Coronavirus 2019 Nasopharygeal <pending> 2 Sars Covid-19 Amplification NEGATIVE Normal Negative 3 Laboratory test finding 12/24/2020 [facility] Main Lab [address] [place] [address] [phone] Non Flight Engineer Manager/Cytology Req For Niki (SEE NOTE) 4 1 Units are mL/min/1.73 m2 Chronic Kidney Disease Staging per NKF: Stage I & II GFR >=60 Normal to Mildly Decreased Stage III GFR 30-59 Moderately Decreased Stage IV GFR 15-29 Severely Decreased Stage V GFR <15 Very Little GFR Left ESRD GFR <15 on COLLECTION SYSTEMS WORKER 2 Comments: PREOP SCREENING By: FLOOR NURSE [...] pathogens. DISCLAIMER: Testing was performed using the [employer] SARS-CoV-2 test. This test was developed and its performance characteristics determined by [employer]. This test has not been FDA cleared [...] 0852 Procedures Date Code Description Status 12/31/2020 39799 Office/Outpatient Established Lo w MDM 20-29 Min Completed 12/24/2020 44522 Office/Outpatient New Low MDM 30 -44 Minutes Completed 12/24/2020 05356 Fine Needle Aspiration Biopsy In lcd Ultrasound Guidance Completed Medical Devices Description No Information Available Encounters Type Date Location Provider Dx Diagnosis Office Visit 03/06/2021 11:00a [facility] Aleksandr Phoenix Z47.89 Encounter for other orthopedic aftercare Office Visit 02/27/2021 1:15p [facility] Dat Will MD Z47.89 Encounter for other orthopedic aftercare Office Visit 12/31/2020 10:10a [facility] Santana Arreguin MD E04.2 Nontoxic multinodular goiter Office Visit 12/24/2020 2:30p [facility] Santana Arreguin MD E04.2 Nontoxic [...] 1:00 pm - Dat Will MD at [facility] 03/13/2021 - Dat Will MD* Z47.89 Encounter for other orthopedic aftercare Functional Status Description No Information Available Mental Status Description No Information Available Referrals Refer to Reason for Referral Status Appt Date Santana Arreguin M.D. Thyroid mass on US Closed 1 [address] [place] [address] [phone]"
--- OUTSIDE RECORDS SUMMARY | 2021-04-10 07:18 | CCD | Continuity of Care Document ---
Author Author Anne DELUCA MD Organization Unknown Address [address] [place] [address] Phone [phone] Care Team Providers Care Development Vice President Name Role Phone Amy Swenson F.N.P.-C. AUTM Central Scheduling AUTM [phone] AUTM Unavailable Problems Active Problems Provider Date [...] needed seasonal allergies Unk nown Megared Superior [place]-3 Krill Oil Extra Strength 500mg Capsules Unknown 0 Xanax 0.5mg Tablets 1 tab every 4 hours as needed for anxiety Unknown Acyclovir 400mg Tablets 1 tab by mouth three times daily Unknown Synthroid 50mcg Tablets Unknown Metformin HCL 500mg Tablets Unknown Atorvastatin Calcium 40mg Tablets Unknown Bystolic 10mg Tablets Amy Swenson F.N.P.-C. Immunizations Description No Information Available Vital Signs Date Vital Result Comment 03/13/2021 1:21pm Body Temperature 97.6 F 02/27/2021 1:13pm Body Temperature 96.9 F Results Test Acquired Date Facility Test Result H/L Range Note Laboratory test finding 02/16/2021 [facility] Main Lab 0 [place], [place] 5277601 [phone] Bedside Glucose 142 mg/dL High 80-115 CBC With Differential 02/16/2021 [facility] Main Lab [address] [place], [place] 5426011 [phone] White Blood Count 8.4 10 Normal 4.0-10.0 [...] 36.0-66.0 Lymph % 9.1 % Low 24.0-44.0 [place] % 3.2 % Normal 2.0-8.0 Eos % 0.0 % Normal 0.0-3.0 Baso % 0.1 % Normal 0.0-1.0 Immature Granulocyte % 0.5 % Normal 0-3.0 Nucleated Red Blood Cell % 0.0 % Normal 0-0 Neutrophils # 7.3 10 Normal 1.5-8.5 Lymph # 0.8 10 Low 1.5-5.0 [place] # 0.3 10 Normal 0.0-0.8 Eos # 0.0 10 Normal 0.0-0.5 Baso # 0.0 10 Normal 0.0-0.2 Basic Metabolic Profile 02/16/2021 [facility] Main Lab [address] [place] [address] [phone] Glucose, Fasting 155 mg/dL High 70-100 Blood [...] mg/dL Normal 8.8-10.2 Laboratory test finding 02/16/2021 [facility] Main Lab [address] [place] [address] [phone] Magnesium Level 1.7 mg/dL Low 1.8-2.4 Laboratory test finding 02/16/2021 [facility] Main Lab [address] [place] [address] [phone] Bedside Glucose 177 mg/dL High 80-115 Laboratory test finding 02/15/2021 [facility] Main Lab [address] [place] [address] [phone] Coronavirus 2019 Nasopharygeal <pending> 2 Sars Covid-19 Amplification NEGATIVE Normal Negative 3 Laboratory test finding 12/24/2020 [facility] Main Lab [address] [place] [address] [phone] Non Before School Babysitter/Cytology Req For Niki (SEE NOTE) 4 1 Units are mL/min/1.73 m2 Chronic Kidney Disease Staging per NKF: Stage I & II GFR >=60 Normal to Mildly Decreased Stage III GFR 30-59 Moderately Decreased Stage IV GFR 15-29 Severely Decreased Stage V GFR <15 Very Little GFR Left ESRD GFR <15 on TOP EDGE BEVELER 2 Comments: PREOP SCREENING By: FLOOR NURSE [...] pathogens. DISCLAIMER: Testing was performed using the [employer] SARS-CoV-2 test. This test was developed and its performance characteristics determined by [employer]. This test has not been FDA cleared [...] 0852 Procedures Date Code Description Status 12/31/2020 63172 Office/Outpatient Established Lo w MDM 20-29 Min Completed 12/24/2020 36512 Office/Outpatient New Low MDM 30 -44 Minutes Completed 12/24/2020 59005 Fine Needle Aspiration Biopsy In lcd Ultrasound Guidance Completed Medical Devices Description No Information Available Encounters Type Date Location Provider Dx Diagnosis Office Visit 03/06/2021 11:00a [facility] Aleksandr Phoenix Z47.89 Encounter for other orthopedic aftercare Office Visit 02/27/2021 1:15p [facility] Dat Will MD Z47.89 Encounter for other orthopedic aftercare Office Visit 12/31/2020 10:10a [facility] Santana Arreguin MD E04.2 Nontoxic multinodular goiter Office Visit 12/24/2020 2:30p 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 Thyroid mass on US Closed 1 [address] [place] [address] [phone]"
--- OUTSIDE RECORDS SUMMARY | 2021-04-10 07:19 | CCD ---
Continuity of Care Document (CCD) Created on: 02/27/2021 Anne brown External Reference #: [id number] : [id number] Sex: Female Author Author Anne WILL MD Organization Unknown Address [address] , [place] [address] Phone [phone] Care Team Providers Care Product Marketing Consultant Name Role Phone Amy Swenson AUTM Central Scheduling AUTM [phone] AUTM Unavailable Problems Active Problems Provider Date [...] SIG Qnty Indications Ordering Provide r Date Calcium 600 600mg Tablets Unknown Prevagen 10mg Capsules Unknown Probiotic Capsules Unknown Hair Skin Nails Capsules Unknown Vitamin D3 125mcg (5000 Ut) Capsul es once daily am Unknown Vitamin D3 25mcg (1000 Ut) Chewtab s one daily in pm Unknown Aspirin 81 Low Dose 81mg Chewtabs 2 by mouth every day Unknown Vitamin C 1000mg Tablets 1 by mouth every day Unknown Super B-Complex Capsules Unknown Qsymia 11.25-69mg Caps ER 24HR Take 1 Capsule By Mouth Once Daily Maximum Daily Dose 1 Capsule Unknown Zyrtec Allergy 10mg Tablets take on by mouth every day as needed seasonal allergies Unk nown Megared Superior [place]-3 Krill Oil Extra Strength 500mg Capsules Unknown 0 Xanax 0.5mg Tablets 1 tab every 4 hours as needed for anxiety Unknown Acyclovir 400mg Tablets 1 tab by mouth three times daily Unknown Synthroid 50mcg Tablets Unknown Metformin HCL 500mg Tablets Unknown Atorvastatin Calcium 40mg Tablets Unknown Bystolic 10mg Tablets Amy Swenson F.N.P.-C. Immunizations Description No Information Available Vital Signs Date Vital Result Comment 02/27/2021 1:13pm Body Temperature 96.9 F 12/31/2020 10:15am Height 65 inches 5'5" Weight 195.00 lb BMI (Body Mass Index) 32.4 kg/m2 [place] Body Weight 125 lb Weight 88.452 kg BSA (Body Surface Area) 1.96 m2 Results Test Acquired Date Facility Test Result H/L Range Note Laboratory test finding 02/16/2021 [facility] Main Lab [address] [place], [place] 6197474 [phone] Bedside Glucose 142 mg/dL High 80-115 CBC With Differential 02/16/2021 [facility] Main Lab [address] [place], [place] 7976775 [phone] White Blood Count 8.4 10 Normal 4.0-10.0 [...] 36.0-66.0 Lymph % 9.1 % Low 24.0-44.0 [place] % 3.2 % Normal 2.0-8.0 Eos % 0.0 % Normal 0.0-3.0 Baso % 0.1 % Normal 0.0-1.0 Immature Granulocyte % 0.5 % Normal 0-3.0 Nucleated Red Blood Cell % 0.0 % Normal 0-0 Neutrophils # 7.3 10 Normal 1.5-8.5 Lymph # 0.8 10 Low 1.5-5.0 [place] # 0.3 10 Normal 0.0-0.8 Eos # 0.0 10 Normal 0.0-0.5 Baso # 0.0 10 Normal 0.0-0.2 Basic Metabolic Profile 02/16/2021 [facility] Main Lab [address] [place] [address] [phone] Glucose, Fasting 155 mg/dL High 70-100 Blood [...] mg/dL Normal 8.8-10.2 Laboratory test finding 02/16/2021 [facility] Main Lab [address] [place] [address] [phone] Magnesium Level 1.7 mg/dL Low 1.8-2.4 Laboratory test finding 02/16/2021 [facility] Main Lab [address] [place] [address] [phone] Bedside Glucose 177 mg/dL High 80-115 Laboratory test finding 02/15/2021 [facility] Main Lab [address] [place] [address] [phone] Coronavirus 2019 Nasopharygeal <pending> 2 Sars Covid-19 Amplification NEGATIVE Normal Negative 3 Laboratory test finding 12/24/2020 [facility] Main Lab [address] [place] [address] [phone] Non Chief Of Field Operations/Cytology Req For Servi (SEE NOTE) 4 1 Units are mL/min/1.73 m2 Chronic Kidney Disease Staging per NKF: Stage I & II GFR >=60 Normal to Mildly Decreased Stage III GFR 30-59 Moderately Decreased Stage IV GFR 15-29 Severely Decreased Stage V GFR <15 Very Little GFR Left ESRD GFR <15 on FIREWORKS ASSEMBLER 2 Comments: PREOP SCREENING By: FLOOR NURSE [...] pathogens. DISCLAIMER: Testing was performed using the [employer] SARS-CoV-2 test. This test was developed and its performance characteristics determined by [employer]. This test has not been FDA cleared [...] 12/25/2020 - 825 Signed NUNU DELAROSA(ASCP) 12/25/2020 0727 (Prelim) Signed TESHA HANNON MD 12/25/2020 0852 Procedures Date Code Description Status 12/31/2020 37422 Office/Outpatient Established Lo w MDM 20-29 Min Completed 12/24/2020 46385 Office/Outpatient New Low MDM 30 -44 Minutes Completed 12/24/2020 18134 Fine Needle Aspiration Biopsy In lcd Ultrasound Guidance Completed Medical Devices Description No Information Available Encounters Type Date Location Provider Dx Diagnosis Office Visit 12/31/2020 10:10a [facility] Santana Arreguin MD E04.2 Nontoxic multinodular goiter Office Visit 12/24/2020 2:30p [facility] Santana Arreguin MD E04.2 Nontoxic multinodular goiter Assessments Date Code Description Provider 02/27/2021 Z47.89 Encounter for other orthopedic a ftercwaqar Will MD 12/31/2020 E04.2 Nontoxic multinodular goiter Nor milka Arreguin MD 12/24/2020 E04.2 Nontoxic multinodular goiter Nor milka Arreguin MD Plan of Treatment Future Appointment(s):* 03/06/2021 11:00 am - Bhupendra Kirkland MD at [facility] * 03/13/2021 1:15 pm - Dat Will MD at [facility] 02/27/2021 - Dat Will MD* Z47.89 Encounter for other orthopedic aftercare* New Orders:* Walking Boot, Ordered: 02/27/21 * New Therapy:* Functional Status Description No Information Available Mental Status Description No Information Available Referrals Refer to Dr Reason for Referral Status Appt Santana Alcantar M.D. Thyroid mass on US Closed [address] [address] [phone]
--- OUTSIDE RECORDS SUMMARY | 2021-04-10 07:19 | CCD | Continuity of Care Document ---
Author Author Anne DELUCA MD Organization Unknown Address [address] [place] [address] Phone [phone] Care Team Providers Care Referral Coordinator Name Role Phone Amy Swenson AUTM [phone] Central Scheduling AUTM [phone] AUTM Unavailable Problems Active Problems Provider Date [...] day as needed seasonal allergies Unk nown Megaalejandro Superior [place]-3 Krill Oil Extra Strength 500mg Capsules Unknown [...] lb BMI (Body Mass Index) 32.4 kg/m2 [place] Body Weight 125 lb Weight 88.452 kg BSA (Body Surface Area) 1.96 m2 Results Test Acquired Date Facility Test Result H/L Range Note Laboratory test finding 02/16/2021 [facility] Main Lab 0 [place], [place] 6101418 [phone] Bedside Glucose 142 mg/dL High 80-115 CBC With Differential 02/16/2021 [facility] Main Lab [address] [place] [address] [phone] White Blood Count 8.4 10 Normal 4.0-10.0 [...] 36.0-66.0 Lymph % 9.1 % Low 24.0-44.0 [place] % 3.2 % Normal 2.0-8.0 Eos % 0.0 % Normal 0.0-3.0 Baso % 0.1 % Normal 0.0-1.0 Immature Granulocyte % 0.5 % Normal 0-3.0 Nucleated Red Blood Cell % 0.0 % Normal 0-0 Neutrophils # 7.3 10 Normal 1.5-8.5 Lymph # 0.8 10 Low 1.5-5.0 [place] # 0.3 10 Normal 0.0-0.8 Eos # 0.0 10 Normal 0.0-0.5 Baso # 0.0 10 Normal 0.0-0.2 Basic Metabolic Profile 02/16/2021 [facility] Main Lab [address] [place] [address] [phone] Glucose, Fasting 155 mg/dL High 70-100 Blood [...] mg/dL Normal 8.8-10.2 Laboratory test finding 02/16/2021 [facility] Main Lab [address] [place] [address] [phone] Magnesium Level 1.7 mg/dL Low 1.8-2.4 Laboratory test finding 02/16/2021 [facility] Main Lab [address] [place] [address] [phone] Bedside Glucose 177 mg/dL High 80-115 Laboratory test finding 02/15/2021 [facility] Main Lab [address] [place] [address] [phone] Coronavirus 2019 Nasopharygeal <pending> 2 Sars Covid-19 Amplification NEGATIVE Normal Negative 3 Laboratory test finding 12/24/2020 [facility] Main Lab [address] [place] [address] [phone] Non General Accounting Clerk/Cytology Req For Servi (SEE NOTE) 4 1 Units are mL/min/1.73 m2 Chronic Kidney Disease Staging per NKF: Stage I & II GFR >=60 Normal to Mildly Decreased Stage III GFR 30-59 Moderately Decreased Stage IV GFR 15-29 Severely Decreased Stage V GFR <15 Very Little GFR Left ESRD GFR <15 on MEDICAL SALES SPECIALIST 2 Comments: PREOP SCREENING By: FLOOR NURSE [...] pathogens. DISCLAIMER: Testing was performed using the [employer] SARS-CoV-2 test. This test was developed and its performance characteristics determined by [employer]. This test has not been FDA cleared [...] 0852 Procedures Date Code Description Status 12/31/2020 73248 Office/Outpatient Established Lo w MDM 20-29 Min Completed 12/24/2020 27737 Office/Outpatient New Low MDM 30 -44 Minutes Completed 12/24/2020 50119 Fine Needle Aspiration Biopsy In lcd Ultrasound Guidance Completed Medical Devices Description No Information Available Encounters Type Date Location Provider Dx Diagnosis Office Visit 02/27/2021 1:15p [facility] Dat Will MD Z47.89 Encounter for other orthopedic aftercare Office Visit 12/31/2020 10:10a [facility] Santana Arreguin MD E04.2 Nontoxic multinodular goiter Office Visit 12/24/2020 2:30p [facility] Santana Arreguin MD E04.2 Nontoxic multinodular goiter Assessments Date Code Description Provider 03/06/2021 Z47.89 Encounter for other orthopedic a ftmollyare Bhupendra Deluca MD 02/27/2021 Z47.89 Encounter for other orthopedic a brandon Will MD 12/31/2020 E04.2 Nontoxic multinodular goiter Nor milka Arreguin MD 12/24/2020 E04.2 Nontoxic multinodular goiter Nor milka Arreguin MD Plan of Treatment Future Appointment(s):* 03/13/2021 1:15 pm - Dat Will MD at [facility] 03/06/2021 - Bhupendra Deluca MD* Z47.89 Encounter for other orthopedic aftercare Functional Status Description No Information Available Mental Status Description No Information Available Referrals Refer to Dr Reason for Referral Status Appt Santana Alcantar M.D. Thyroid mass on US Closed [address] [address] [phone]
--- OUTSIDE RECORDS SUMMARY | 2021-04-10 07:19 | CCD ---
Author Author [facility] Organization [facility] Address Unknown Phone Unavailable Care Team Providers Care Mortgage Or Loan Underwriter Name Role Phone Dinesh Baer Unavailable PROBLEMS Type Condition ICD9-CM Code [id number] Code Onset Dates Condition S tatus W/U Status Risk SNOMED Code Notes Problem ALVARO (generalized anxiety disorder) F41.1 Activ e confirmed [id number] Problem Obesity (BMI 30.0-34.9) E66.9 Active confirmed 544600007704619 Problem Hypothyroidism (acquired) E03.9 Active confirmed [id number] ALLERGIES Allergen (clinical drug ingredient) Drug/Non Drug Allergy do cumented on EMR Reaction Allergy Type Onset Date Status Sulfasalazine Sulfa Antibiotics Itching Drug Allergy Ac tive ENCOUNTERS from 1960 to 2021-03-03 Encounter Location Date Provider Diagnosis [address] [place] [address] 10 Feb, 2021 Dinesh Baer IMMUNIZATIONS Vaccine Route Administration Date Status Moderna [...] Notes Total Score: 4 Interpretation: Alcohol Education Hoahaoism: Question Answer Notes Hoahaoism 21 Spiritism No orthodoxy beliefs that would impact health care. Drug [...] Notes Start Da te End Date Status Flexi Joint - as directed Orally Act sander Vitamin D-[address] 25 MCG (1000 UT) 5 tabs in the a m and 1 tab in the pm Orally Active Bystolic 10 MG 1 tablet Orally Once a day for 90 day(s) Active Qsymia 11.25-69 MG 1 capsule Orally Once a day for 90 day(s) Feb, Active Atorvastatin Calcium 40 MG 1 tablet Orally Once a day for 90 day(s) Active Hair Skin Nails - 2 caps Orally once a day Active Probiotic-Prebiotic 1-250 BILLION-MG as directed Orally Active Synthroid 50 MCG 1 tablet in the morning on a n empty stomach Orally Once a day for 90 day(s) Active Aspirin 81 MG 1 tablet Orally twice a day Active ZyrTEC Allergy 10 MG 1 tablet Orally Once a day for 30 day(s) Active Vegetable Capsule #0 Green - 3 caps daily Active Super B Complex once a day Active metFORMIN HCl 500 MG 1 tablet with a meal Orally twice a day for 90 day(s) Active Xanax 0.25 MG 1 tablet Orally prn q6h MDD 4 for 10 day(s) Dec, Active Ibuprofen 600 MG 1 tablet with food or milk a s needed Orally every 6 hours prn pain for 7 day(s) Jan, Active Vitamin C 1000 MG 1 tablet Orally Once a day for 30 day(s) Active Acyclovir 400 MG 1 tablet Orally once a day prn Active Krill Oil 500 MG 3 caps Orally once a day Active Calcium 600 MG 1 tablet with meals Orally Once a day Active Magnesium - Magtene Orally bid Activ e Prevagen 10 MG as directed Orally Ac tive Percocet 5-325 MG 1 tablet as needed Orally ev crystal 6 hrs, prn pain, MDD 4 for 7 day(s) Jan, Active PROCEDURES No Information RESULTS No Results REASON FOR VISIT uti sx MEDICAL (GENERAL) HISTORY Type Description Date Medical [...] No Information FUNCTIONAL STATUS No Information ASSESSMENTS No Information PLAN OF TREATMENT Medication Medication Name Sig Start Date Stop Date metFORMIN HCl 500 MG 1 tablet with a meal Orally twice a day for 90 day(s) Synthroid 50 MCG 1 tablet in the morning on a n empty stomach Orally Once a day for 90 day(s) Atorvastatin Calcium 40 MG 1 tablet Orally Once a day for 90 day (s) Qsymia 11.25-69 MG 1 capsule Orally Once a day for 90 day(s) Feb, Insurance Providers Payer Name Payer Address Payer Phone Insured Name Patient Relati onship to Insured Coverage Start Date Coverage End Date [facility] [address] [facility] [id number] SIMEON RAYMOND
--- OUTSIDE RECORDS SUMMARY | 2021-04-10 07:19 | CCD | Continuity of Care Document ---
Author Author Anne WILL MD Organization Unknown Address [address] , [facility] [place] [address] Phone [phone] Care Team Providers Care Fleet Manager Name Role Phone Amy Swenson.N.P.-C. AUTM [phone] Central Scheduling AUTM [phone] AUTM Unavailable Problems Active Problems Provider Date [...] needed seasonal allergies Unk nown Megared Superior [place]-3 Krill Oil Extra Strength 500mg Capsules Unknown [...] H/L Range Note Laboratory test finding 02/16/2021 [facility] Main Lab [address] [place], [place] 2126914 [phone] Bedside Glucose 142 mg/dL High 80-115 CBC With Differential 02/16/2021 [facility] Main Lab [address] [place], [place] 5768336 [phone] White Blood Count 8.4 10 Normal 4.0-10.0 [...] 36.0-66.0 Lymph % 9.1 % Low 24.0-44.0 Mercer % 3.2 % Normal 2.0-8.0 Eos % 0.0 % Normal 0.0-3.0 Baso % 0.1 % Normal 0.0-1.0 Immature Granulocyte % 0.5 % Normal 0-3.0 Nucleated Red Blood Cell % 0.0 % Normal 0-0 Neutrophils # 7.3 10 Normal 1.5-8.5 Lymph # 0.8 10 Low 1.5-5.0 Mercer # 0.3 10 Normal 0.0-0.8 Eos # 0.0 10 Normal 0.0-0.5 Baso # 0.0 10 Normal 0.0-0.2 Basic Metabolic Profile 02/16/2021 [facility] Main Lab [address] [place] [address] [phone] [phone] Glucose, Fasting 155 mg/dL High 70-100 Blood [...] mg/dL Normal 8.8-10.2 Laboratory test finding 02/16/2021 [facility] Main Lab [address] [place] [address] 8375851 [phone] Magnesium Level 1.7 mg/dL Low 1.8-2.4 Laboratory test finding 02/16/2021 [facility] Main Lab [address] [place], [place] 8037230 [phone] Bedside Glucose 177 mg/dL High 80-115 Laboratory test finding 02/15/2021 [facility] Main Lab [address] [place] [address] [phone] Coronavirus 2019 Nasopharygeal <pending> 2 Sars Covid-19 Amplification NEGATIVE Normal Negative 3 Laboratory test finding 12/24/2020 [facility] Main Lab [address] [place] [address] [phone] Non Detail Technician/Cytology Req For Niki (SEE NOTE) 4 1 Units are mL/min/1.73 m2 Chronic Kidney Disease Staging per NKF: Stage I & II GFR >=60 Normal to Mildly Decreased Stage III GFR 30-59 Moderately Decreased Stage IV GFR 15-29 Severely Decreased Stage V GFR <15 Very Little GFR Left ESRD GFR <15 on BIOMEDICAL EQUIPMENT SPECIALIST 2 Comments: PREOP SCREENING By: FLOOR [...] pathogens. DISCLAIMER: Testing was performed using the [employer] SARS-CoV-2 test. This test was developed and its performance characteristics determined by [employer]. This test has not been FDA cleared [...] 0852 Procedures Date Code Description Status 12/31/2020 90837 Office/Outpatient Established Lo w MDM 20-29 Min Completed 12/24/2020 73962 Office/Outpatient New Low MDM 30 -44 Minutes Completed 12/24/2020 27954 Fine Needle Aspiration Biopsy In lcd Ultrasound Guidance Completed Medical Devices Description No Information Available Encounters Type Date Location Provider Dx Diagnosis Office Visit 03/06/2021 11:00a [facility] Aleksandr Phoenix Z47.89 Encounter for other orthopedic aftercare Office Visit 02/27/2021 1:15p [facility] Dat Will MD Z47.89 Encounter for other orthopedic aftercare Office Visit 12/31/2020 10:10a [facility] Santana Arreguin MD E04.2 Nontoxic multinodular goiter Office Visit 12/24/2020 2:30p [facility] Santana Arreguin MD E04.2 Nontoxic [...] 1:00 pm - Dat Will MD at [facility] 03/13/2021 - Dat Will MD* Z47.89 Encounter for other orthopedic aftercare Functional Status Description No Information Available Mental Status Description No Information Available Referrals Refer to Reason for Referral Status Appt Date Santana Arreguin M.D. Thyroid mass on US Closed 1 6 [place] [address] [phone]"
--- OUTSIDE RECORDS SUMMARY | 2021-04-10 07:19 | CCD ---
Author Author [facility] Organization [facility] Address Unknown Phone Unavailable Care Team Providers Care Atomic Spectroscopist Name Role Phone Steverosa elena Amy Unavailable PROBLEMS Type Condition ICD9-CM Code [id number] Code Onset Dates Condition S tatus W/U Status Risk SNOMED Code Notes Problem ALVARO (generalized anxiety disorder) F41.1 Activ e confirmed [id number] Problem Obesity (BMI 30.0-34.9) E66.9 Active confirmed [id number] Problem Hypothyroidism (acquired) E03.9 Active confirmed [id number] ALLERGIES Allergen (clinical drug ingredient) Drug/Non Drug Allergy do cumented on EMR Reaction Allergy Type Onset Date Status Sulfasalazine Sulfa Antibiotics Itching Drug Allergy Ac tive ENCOUNTERS from 1960 to 2021-02-27 Encounter Location Date Provider Diagnosis [address] [phone] [place] [address] Jan, Amy Swenson IMMUNIZATIONS Vaccine Route Administration Date Status Moderna [...] Notes Total Score: 4 Interpretation: Alcohol Education Yarsani: Question Answer Notes Yarsani 21 Christian No episcopalian beliefs that would impact health care. Drug [...] Information RESULTS No Results REASON FOR VISIT Pain Medication MEDICAL (GENERAL) HISTORY Type Description Date Medical [...] Insured Coverage Start Date Coverage End Date [facility] [address] [facility] [id number] SIMEON RAYMOND
--- OUTSIDE RECORDS SUMMARY | 2021-04-10 07:19 | CCD | Continuity of Care Document ---
Author Author Anne DELUCA MD Organization Unknown Address [address] [place] [address] Phone [phone] Care Team Providers Care Sales Force Developer Name Role Phone Amy Swenson AUTM [phone] Central Scheduling AUTM [phone] AUTM Unavailable Problems Active Problems Provider Date [...] needed seasonal allergies Unk nown Megaalejandro Superior [place]-3 Krill Oil Extra Strength 500mg Capsules Unknown [...] lb BMI (Body Mass Index) 32.4 kg/m2 Pierce Body Weight 125 lb Weight 88.452 kg BSA (Body Surface Area) 1.96 m2 Results Test Acquired Date Facility Test Result H/L Range Note Laboratory test finding 02/16/2021 [facility] Main Lab [address] [place], [place] [phone] Bedside Glucose 142 mg/dL High 80-115 CBC With Differential 02/16/2021 [facility] Main Lab [address] [place] [address] [phone] White Blood Count 8.4 10 Normal 4.0-10.0 [...] 36.0-66.0 Lymph % 9.1 % Low 24.0-44.0 Mcleod % 3.2 % Normal 2.0-8.0 Eos % 0.0 % Normal 0.0-3.0 Baso % 0.1 % Normal 0.0-1.0 Immature Granulocyte % 0.5 % Normal 0-3.0 Nucleated Red Blood Cell % 0.0 % Normal 0-0 Neutrophils # 7.3 10 Normal 1.5-8.5 Lymph # 0.8 10 Low 1.5-5.0 Mcleod # 0.3 10 Normal 0.0-0.8 Eos # 0.0 10 Normal 0.0-0.5 Baso # 0.0 10 Normal 0.0-0.2 Basic Metabolic Profile 02/16/2021 [facility] Main Lab [address] [place] [address] [phone] Glucose, Fasting 155 mg/dL High 70-100 Blood [...] mg/dL Normal 8.8-10.2 Laboratory test finding 02/16/2021 [facility] Main Lab [address] [place] [address] [phone] Magnesium Level 1.7 mg/dL Low 1.8-2.4 Laboratory test finding 02/16/2021 [facility] Main Lab [address] [place] [address] [phone] Bedside Glucose 177 mg/dL High 80-115 Laboratory test finding 02/15/2021 [facility] Main Lab [address] [place] [address] [phone] Coronavirus 2019 Nasopharygeal <pending> 2 Sars Covid-19 Amplification NEGATIVE Normal Negative 3 Laboratory test finding 12/24/2020 [facility] Main Lab [address] [place] [address] [phone] Non Barrel Rifler Broach/Cytology Req For Servi (SEE NOTE) 4 1 Units are mL/min/1.73 m2 Chronic Kidney Disease Staging per NKF: Stage I & II GFR >=60 Normal to Mildly Decreased Stage III GFR 30-59 Moderately Decreased Stage IV GFR 15-29 Severely Decreased Stage V GFR <15 Very Little GFR Left ESRD GFR <15 on JUKEBOX COIN COLLECTOR 2 Comments: PREOP SCREENING By: FLOOR NURSE [...] pathogens. DISCLAIMER: Testing was performed using the [employer] SARS-CoV-2 test. This test was developed and its performance characteristics determined by [employer]. This test has not been FDA cleared [...] 0852 Procedures Date Code Description Status 12/31/2020 79623 Office/Outpatient Established Lo w MDM 20-29 Min Completed 12/24/2020 61066 Office/Outpatient New Low MDM 30 -44 Minutes Completed 12/24/2020 10829 Fine Needle Aspiration Biopsy In lcd Ultrasound Guidance Completed Medical Devices Description No Information Available Encounters Type Date Location Provider Dx Diagnosis Office Visit 02/27/2021 1:15p [facility] Dat Will MD Z47.89 Encounter for other orthopedic aftercare Office Visit 12/31/2020 10:10a [facility] Santana Arreguin MD E04.2 Nontoxic multinodular goiter Office Visit 12/24/2020 2:30p [facility] Santana Arreguin MD E04.2 Nontoxic [...] 1:15 pm - Dat Will MD at [facility] 03/06/2021 - Bhupendra Deluca MD* Z47.89 Encounter for other orthopedic aftercare Functional Status Description No Information Available Mental Status Description No Information Available Referrals Refer to Dr Reason for Referral Status Appt Santana Alcantar M.D. Thyroid mass on US Closed [address] [address] [phone]
--- OUTSIDE RECORDS SUMMARY | 2021-04-10 07:19 | CCD | Continuity of Care Document ---
Author Author Anne WILL MD Organization Unknown Address [address] , [facility] [address] Phone [phone] Care Team Providers Care Medical Staff Manager Name Role Phone Amy Swenson.N.P.-C. AUTM Central Scheduling AUTM [phone] AUTM Unavailable Problems Active Problems Provider Date [...] needed seasonal allergies Unk nown Megared Superior [place]-3 Krill Oil Extra Strength 500mg Capsules Unknown [...] H/L Range Note Laboratory test finding 02/16/2021 [facility] Main Lab [address] [place], [place] 2167024 [phone] Bedside Glucose 142 mg/dL High 80-115 CBC With Differential 02/16/2021 [facility] Main Lab [address] [place], [place] 8483027 [phone] White Blood Count 8.4 10 Normal 4.0-10.0 [...] 36.0-66.0 Lymph % 9.1 % Low 24.0-44.0 Cherokee % 3.2 % Normal 2.0-8.0 Eos % 0.0 % Normal 0.0-3.0 Baso % 0.1 % Normal 0.0-1.0 Immature Granulocyte % 0.5 % Normal 0-3.0 Nucleated Red Blood Cell % 0.0 % Normal 0-0 Neutrophils # 7.3 10 Normal 1.5-8.5 Lymph # 0.8 10 Low 1.5-5.0 Cherokee # 0.3 10 Normal 0.0-0.8 Eos # 0.0 10 Normal 0.0-0.5 Baso # 0.0 10 Normal 0.0-0.2 Basic Metabolic Profile 02/16/2021 [facility] Main Lab [address] [place] [address] [phone] Glucose, Fasting 155 mg/dL High 70-100 Blood [...] mg/dL Normal 8.8-10.2 Laboratory test finding 02/16/2021 [facility] Main Lab [address] [place] [address] 0696855 [phone] Magnesium Level 1.7 mg/dL Low 1.8-2.4 Laboratory test finding 02/16/2021 [facility] Main Lab [address] [place], [place] 1139259 [phone] Bedside Glucose 177 mg/dL High 80-115 Laboratory test finding 02/15/2021 [facility] Main Lab [address] [place] [address] [phone] Coronavirus 2019 Nasopharygeal <pending> 2 Sars Covid-19 Amplification NEGATIVE Normal Negative 3 Laboratory test finding 12/24/2020 [facility] Main Lab [address] [place] [address] [phone] Non Tank Truck Milk Receiver/Cytology Req For Niki (SEE NOTE) 4 1 Units are mL/min/1.73 m2 Chronic Kidney Disease Staging per NKF: Stage I & II GFR >=60 Normal to Mildly Decreased Stage III GFR 30-59 Moderately Decreased Stage IV GFR 15-29 Severely Decreased Stage V GFR <15 Very Little GFR Left ESRD GFR <15 on UNDERWRITING CLERKS SUPERVISOR 2 Comments: PREOP SCREENING By: FLOOR NURSE [...] pathogens. DISCLAIMER: Testing was performed using the [employer] SARS-CoV-2 test. This test was developed and its performance characteristics determined by [employer]. This test has not been FDA cleared [...] 0852 Procedures Date Code Description Status 12/31/2020 57956 Office/Outpatient Established Lo w MDM 20-29 Min Completed 12/24/2020 66363 Office/Outpatient New Low MDM 30 -44 Minutes Completed 12/24/2020 03309 Fine Needle Aspiration Biopsy In lcd Ultrasound Guidance Completed Medical Devices Description No Information Available Encounters Type Date Location Provider Dx Diagnosis Office Visit 03/06/2021 11:00a [facility] Aleksandr Phoenix Z47.89 Encounter for other orthopedic aftercare Office Visit 02/27/2021 1:15p [facility] Dat Will MD Z47.89 Encounter for other orthopedic aftercare Office Visit 12/31/2020 10:10a [facility] Santana Arreguin MD E04.2 Nontoxic multinodular goiter Office Visit 12/24/2020 2:30p [facility] Santana Arreguin MD E04.2 Nontoxic multinodular goiter Assessments Date Code Description Provider 03/13/2021 Z47.89 Encounter for other orthopedic a brandon Will MD 03/06/2021 Z47.89 Encounter for other orthopedic a ftercare Bhupendra Kirkland MD 02/27/2021 Z47.89 Encounter for other orthopedic a dilipare Dat Will MD 12/31/2020 E04.2 Nontoxic multinodular goiter Nor milka Arregiun MD 12/24/2020 E04.2 Nontoxic multinodular goiter Nor milka Arreguin MD Plan of Treatment Future Appointment(s):* 04/01/2021 1:00 pm - Dat Will MD at [facility] 03/13/2021 - Dat Will MD* Z47.89 Encounter for other orthopedic aftercare Functional Status Description No Information Available Mental Status Description No Information Available Referrals Refer to Reason for Referral Status Appt Date Santana Arreguin M.D. Thyroid mass on US Closed 1 [address] [place] [address] [phone]"
--- OUTSIDE RECORDS SUMMARY | 2021-04-10 07:19 | CCD | Continuity of Care Document ---
Author Author Anne WILL MD Organization Unknown Address [address] , [facility] [place] [address] Phone [phone] Care Team Providers Care Envelope Stuffer Name Role Phone Amy Swenson.N.P.-C. AUTM Central Scheduling AUTM [phone] AUTM Unavailable Problems Active Problems Provider Date [...] needed seasonal allergies Unk nown Megared Superior [place]-3 Krill Oil Extra Strength 500mg Capsules Unknown [...] H/L Range Note Laboratory test finding 02/16/2021 [facility] Main Lab [address] [place], [place] 7798666 [phone] Bedside Glucose 142 mg/dL High 80-115 CBC With Differential 02/16/2021 [facility] Main Lab [address] [place], [place] 4969400 [phone] White Blood Count 8.4 10 Normal 4.0-10.0 [...] 36.0-66.0 Lymph % 9.1 % Low 24.0-44.0 [place] % 3.2 % Normal 2.0-8.0 Eos % 0.0 % Normal 0.0-3.0 Baso % 0.1 % Normal 0.0-1.0 Immature Granulocyte % 0.5 % Normal 0-3.0 Nucleated Red Blood Cell % 0.0 % Normal 0-0 Neutrophils # 7.3 10 Normal 1.5-8.5 Lymph # 0.8 10 Low 1.5-5.0 Freeborn # 0.3 10 Normal 0.0-0.8 Eos # 0.0 10 Normal 0.0-0.5 Baso # 0.0 10 Normal 0.0-0.2 Basic Metabolic Profile 02/16/2021 [facility] Main Lab [address] [place] [address] 6547157 [phone] Glucose, Fasting 155 mg/dL High 70-100 Blood [...] mg/dL Normal 8.8-10.2 Laboratory test finding 02/16/2021 [facility] Main Lab [address] [place] [address] [phone] Magnesium Level 1.7 mg/dL Low 1.8-2.4 Laboratory test finding 02/16/2021 [facility] Main Lab [address] [place], [place] 9588253 [phone] Bedside Glucose 177 mg/dL High 80-115 Laboratory test finding 02/15/2021 [facility] Main Lab [address] [place] [address] [phone] Coronavirus 2019 Nasopharygeal <pending> 2 Sars Covid-19 Amplification NEGATIVE Normal Negative 3 Laboratory test finding 12/24/2020 [facility] Main Lab [address] [place] [address] [phone] Non Field Sales Specialist/Cytology Req For Niki (SEE NOTE) 4 1 Units are mL/min/1.73 m2 Chronic Kidney Disease Staging per NKF: Stage I & II GFR >=60 Normal to Mildly Decreased Stage III GFR 30-59 Moderately Decreased Stage IV GFR 15-29 Severely Decreased Stage V GFR <15 Very Little GFR Left ESRD GFR <15 on FOOTBALL COACH 2 Comments: PREOP SCREENING By: FLOOR NURSE [...] pathogens. DISCLAIMER: Testing was performed using the [employer] SARS-CoV-2 test. This test was developed and its performance characteristics determined by [employer]. This test has not been FDA cleared [...] 0852 Procedures Date Code Description Status 12/31/2020 46877 Office/Outpatient Established Lo w MDM 20-29 Min Completed 12/24/2020 86845 Office/Outpatient New Low MDM 30 -44 Minutes Completed 12/24/2020 43808 Fine Needle Aspiration Biopsy In lcd Ultrasound Guidance Completed Medical Devices Description No Information Available Encounters Type Date Location Provider Dx Diagnosis Office Visit 03/06/2021 11:00a [facility] Aleksandr Phoenix Z47.89 Encounter for other orthopedic aftercare Office Visit 02/27/2021 1:15p [facility] Dat Will MD Z47.89 Encounter for other orthopedic aftercare Office Visit 12/31/2020 10:10a [facility] Santana Arreguin MD E04.2 Nontoxic multinodular goiter Office Visit 12/24/2020 2:30p [facility] Santana Arreguin MD E04.2 [...] 1:00 pm - Dat Will MD at [facility] 03/13/2021 - Dat Will MD* Z47.89 Encounter for other orthopedic aftercare Functional Status Description No Information Available Mental Status Description No Information Available Referrals Refer to Reason for Referral Status Appt Date Santana Arreguin M.D. Thyroid mass on US Closed 1 6 [place] [address] [phone]"
--- OUTSIDE RECORDS SUMMARY | 2021-04-10 07:19 | CCD ---
Author Author [facility] Organization [facility] Address Unknown Phone Unavailable Care Team Providers Care Finisher Denture Name Role Phone Leela Amy Unavailable PROBLEMS Type Condition ICD9-CM Code [id number] Code Onset Dates Condition S tatus W/U Status Risk SNOMED Code Notes Problem ALVARO (generalized anxiety disorder) F41.1 Activ e confirmed 06299613 Problem Obesity (BMI 30.0-34.9) E66.9 Active confirmed 420324028479710 Problem Renal calculi N20.0 Active confirmed 466459 07 Problem Hypothyroidism (acquired) E03.9 Active confirmed [id number] ALLERGIES Allergen (clinical drug ingredient) Drug/Non Drug Allergy do cumented on EMR Reaction Allergy Type Onset Date Status Sulfasalazine Sulfa Antibiotics Itching Drug Allergy Ac tive ENCOUNTERS from 1960 to 2021-03-04 Encounter Location Date Provider Diagnosis [address] [phone] [place] [address] Feb, Amy Swenson IMMUNIZATIONS Vaccine Route Administration Date [...] Notes Total Score: 4 Interpretation: Alcohol Education Taoism: Question Answer Notes Taoism 21 Anabaptism No baptist beliefs that would impact health care. Drug [...] Notes Start Da te End Date Status Percocet 5-325 MG 1 tablet as needed Orally ev crystal 6 hrs, prn pain, MDD 4 for 7 day(s) Jan, Active Calcium 600 MG 1 tablet with meals Orally Once a day Active Xanax 0.25 MG 1 tablet Orally prn q6h MDD 4 for 10 day(s) Dec, Active Ibuprofen 600 MG 1 tablet with food or milk a s needed Orally every 6 hours prn pain for 7 day(s) Jan, Active Flexi Joint - as directed Orally Act sander Prevagen 10 MG as directed Orally Ac tive Vitamin D-[address] 25 MCG (1000 UT) 5 tabs in the a m and 1 tab in the pm Orally Active Synthroid 50 MCG 1 tablet in the morning on a n empty stomach Orally Once a day for 90 day(s) Active Atorvastatin Calcium 40 MG 1 tablet Orally Once a day for 90 day(s) Active Tamsulosin HCl 0.4 MG 1 capsule Orally Once a day for 5 day(s) Feb, Active HYDROcodone-Acetaminophen 5-325 MG 1 tablet as needed Orally every 6 hrs for 5 day(s) Feb, Active ZyrTEC Allergy 10 MG 1 tablet Orally Once a day for 30 day(s) Active Qsymia 11.25-69 MG 1 capsule Orally Once a day for 90 day(s) Feb, Active Vitamin C 1000 MG 1 tablet Orally Once a day for 30 day(s) Active Aspirin 81 MG 1 tablet Orally twice a day Active Vegetable Capsule #0 Green - 3 caps daily Active Probiotic-Prebiotic 1-250 BILLION-MG as directed Orally Active metFORMIN HCl 500 MG 1 tablet with a meal Orally twice a day for 90 day(s) Active Super B Complex once a day Active Bystolic 10 MG 1 tablet Orally Once a day for 90 day(s) Active Krill Oil 500 MG 3 caps Orally once a day Active Magnesium - Magtene Orally bid Activ e Hair Skin Nails - 2 caps Orally once a day Active Acyclovir 400 MG 1 tablet Orally once a day prn Active PROCEDURES No Information RESULTS No Results REASON FOR VISIT No Information MEDICAL (GENERAL) HISTORY Type Description Date Medical [...] Medication Name Sig Start Date Stop Date HYDROcodone-Acetaminophen 5-325 MG 1 tablet as needed Orally every 6 hrs for 5 day(s) Feb, Tamsulosin HCl 0.4 MG 1 capsule Orally Once a day for 5 day(s) 1 2 Feb, 2021 metFORMIN HCl 500 MG 1 tablet with [...] Insured Coverage Start Date Coverage End Date [facility] [address] [facility] [address] SIMEON RAYMOND self
--- OUTSIDE RECORDS SUMMARY | 2021-04-10 07:19 | CCD | Continuity of Care Document ---
Author Author Anne DELUCA MD Organization Unknown Address [address] [place] [address] Phone [phone] Care Team Providers Care Workday Consultant Name Role Phone Amy Swenson AUTM [phone] Central Scheduling AUTM [phone] AUTM Unavailable Problems Active Problems Provider Date [...] needed seasonal allergies Unk nown Megaalejandro Superior [place]-3 Krill Oil Extra Strength 500mg Capsules Unknown [...] lb BMI (Body Mass Index) 32.4 kg/m2 [place] Body Weight 125 lb Weight 88.452 kg BSA (Body Surface Area) 1.96 m2 Results Test Acquired Date Facility Test Result H/L Range Note Laboratory test finding 02/16/2021 [facility] Main Lab 0 [place], [place] [id number] [phone] Bedside Glucose 142 mg/dL High 80-115 CBC With Differential 02/16/2021 [facility] Main Lab [address] [place] [address] [phone] [phone] White Blood Count 8.4 10 Normal 4.0-10.0 [...] 36.0-66.0 Lymph % 9.1 % Low 24.0-44.0 [place] % 3.2 % Normal 2.0-8.0 Eos % 0.0 % Normal 0.0-3.0 Baso % 0.1 % Normal 0.0-1.0 Immature Granulocyte % 0.5 % Normal 0-3.0 Nucleated Red Blood Cell % 0.0 % Normal 0-0 Neutrophils # 7.3 10 Normal 1.5-8.5 Lymph # 0.8 10 Low 1.5-5.0 [place] # 0.3 10 Normal 0.0-0.8 Eos # 0.0 10 Normal 0.0-0.5 Baso # 0.0 10 Normal 0.0-0.2 Basic Metabolic Profile 02/16/2021 [facility] Main Lab 0 [place] [address] [phone] Glucose, Fasting 155 mg/dL High 70-100 Blood [...] mg/dL Normal 8.8-10.2 Laboratory test finding 02/16/2021 [facility] Main Lab [address] [place] [address] [phone] Magnesium Level 1.7 mg/dL Low 1.8-2.4 Laboratory test finding 02/16/2021 [facility] Main Lab [address] [place] [address] [phone] Bedside Glucose 177 mg/dL High 80-115 Laboratory test finding 02/15/2021 [facility] Main Lab [address] [place] [address] [phone] Coronavirus 2019 Nasopharygeal <pending> 2 Sars Covid-19 Amplification NEGATIVE Normal Negative 3 Laboratory test finding 12/24/2020 [facility] Main Lab [address] [place] [address] [phone] Non Vault Keeper/Cytology Req For Servi (SEE NOTE) 4 1 Units are mL/min/1.73 m2 Chronic Kidney Disease Staging per NKF: Stage I & II GFR >=60 Normal to Mildly Decreased Stage III GFR 30-59 Moderately Decreased Stage IV GFR 15-29 Severely Decreased Stage V GFR <15 Very Little GFR Left ESRD GFR <15 on OPHTHALMIC MEDICAL TECHNICIAN 2 Comments: PREOP SCREENING By: FLOOR NURSE [...] pathogens. DISCLAIMER: Testing was performed using the [employer] SARS-CoV-2 test. This test was developed and its performance characteristics determined by [employer]. This test has not been FDA cleared [...] 0852 Procedures Date Code Description Status 12/31/2020 11407 Office/Outpatient Established Lo w MDM 20-29 Min Completed 12/24/2020 37499 Office/Outpatient New Low MDM 30 -44 Minutes Completed 12/24/2020 57686 Fine Needle Aspiration Biopsy In lcd Ultrasound Guidance Completed Medical Devices Description No Information Available Encounters Type Date Location Provider Dx Diagnosis Office Visit 02/27/2021 1:15p [facility] Orth[facility] Dat Will MD Z47.89 Encounter for other orthopedic aftercare Office Visit 12/31/2020 10:10a [facility] Santana Arreguin MD E04.2 Nontoxic multinodular goiter Office Visit 12/24/2020 2:30p [facility] Santana Arreguin MD [...] 1:15 pm - Dat Will MD at [facility] 03/06/2021 - Bhupendra Deluca MD* Z47.89 Encounter for other orthopedic aftercare Functional Status Description No Information Available Mental Status Description No Information Available Referrals Refer to Dr Reason for Referral Status Appt Santana Alcantar M.D. Thyroid mass on US Closed [address] [address] [phone]
--- OUTSIDE RECORDS SUMMARY | 2021-04-10 07:19 | CCD ---
Author Author [facility] Organization [facility] Address Unknown Phone Unavailable Care Team Providers Care Gauge Maker Apprentice Name Role Phone Leela Amy Unavailable PROBLEMS Type Condition ICD9-CM Code [id number] Code Onset Dates Condition S tatus W/U Status Risk SNOMED Code Notes Problem ALVARO (generalized anxiety disorder) F41.1 Activ e confirmed [id number] Problem Obesity (BMI 30.0-34.9) E66.9 Active confirmed [id number] Problem Hypothyroidism (acquired) E03.9 Active confirmed [id number] ALLERGIES Allergen (clinical drug ingredient) Drug/Non Drug Allergy do cumented on EMR Reaction Allergy Type Onset Date Status Sulfasalazine Sulfa Antibiotics Itching Drug Allergy Ac tive ENCOUNTERS from 1960 to 2021-03-03 Encounter Location Date Provider Diagnosis [address] [phone] [place] [address] Feb, 2021 Amy Swenson IMMUNIZATIONS Vaccine Route Administration Date [...] Education Christianity: Question Answer Notes Christianity 21 Orthodoxy No yarsanism beliefs that would impact health care. Drug [...] Information RESULTS No Results REASON FOR VISIT UTI MEDICAL (GENERAL) HISTORY Type Description Date Medical [...] Insured Coverage Start Date Coverage End Date [facility] [address] [facility] [id number] SIMEON RAYMOND
--- OUTSIDE RECORDS SUMMARY | 2021-04-10 07:19 | CCD | Continuity of Care Document ---
Author Author Anne WILL MD Organization Unknown Address [address] , [facility] [place] [address] Phone [phone] Care Team Providers Care Research Archaeologist Name Role Phone Amy Swenson.N.P.-C. AUTM Central Scheduling AUTM [phone] AUTM Unavailable Problems Active Problems Provider Date [...] needed seasonal allergies Unk nown Megared Superior [place]-3 Krill Oil Extra Strength 500mg Capsules Unknown [...] H/L Range Note Laboratory test finding 02/16/2021 [facility] Main Lab [address] [place], [place] [phone] Bedside Glucose 142 mg/dL High 80-115 CBC With Differential 02/16/2021 [facility] Main Lab [address] [place], [place] 0796295 [phone] White Blood Count 8.4 10 Normal 4.0-10.0 [...] 36.0-66.0 Lymph % 9.1 % Low 24.0-44.0 [place] % 3.2 % Normal 2.0-8.0 Eos % 0.0 % Normal 0.0-3.0 Baso % 0.1 % Normal 0.0-1.0 Immature Granulocyte % 0.5 % Normal 0-3.0 Nucleated Red Blood Cell % 0.0 % Normal 0-0 Neutrophils # 7.3 10 Normal 1.5-8.5 Lymph # 0.8 10 Low 1.5-5.0 [place] # 0.3 10 Normal 0.0-0.8 Eos # 0.0 10 Normal 0.0-0.5 Baso # 0.0 10 Normal 0.0-0.2 Basic Metabolic Profile 02/16/2021 [facility] Main Lab [address] [place] [address] [phone] Glucose, Fasting 155 mg/dL High 70-100 Blood [...] mg/dL Normal 8.8-10.2 Laboratory test finding 02/16/2021 [facility] Main Lab [address] [place] [address] [phone] Magnesium Level 1.7 mg/dL Low 1.8-2.4 Laboratory test finding 02/16/2021 [facility] Main Lab [address] [place], [place] 18[address] [phone] Bedside Glucose 177 mg/dL High 80-115 Laboratory test finding 02/15/2021 [facility] Main Lab [address] [place] [address] [phone] Coronavirus 2019 Nasopharygeal <pending> 2 Sars Covid-19 Amplification NEGATIVE Normal Negative 3 Laboratory test finding 12/24/2020 [facility] Main Lab [address] [place] [address] [phone] Non Glass Enamel Mixer/Cytology Req For Niki (SEE NOTE) 4 1 Units are mL/min/1.73 m2 Chronic Kidney Disease Staging per NKF: Stage I & II GFR >=60 Normal to Mildly Decreased Stage III GFR 30-59 Moderately Decreased Stage IV GFR 15-29 Severely Decreased Stage V GFR <15 Very Little GFR Left ESRD GFR <15 on IT PROJECT MANAGER 2 Comments: PREOP SCREENING By: FLOOR NURSE [...] pathogens. DISCLAIMER: Testing was performed using the [employer] SARS-CoV-2 test. This test was developed and its performance characteristics determined by [employer]. This test has not been FDA cleared [...] 0852 Procedures Date Code Description Status 12/31/2020 36331 Office/Outpatient Established Lo w MDM 20-29 Min Completed 12/24/2020 91364 Office/Outpatient New Low MDM 30 -44 Minutes Completed 12/24/2020 31612 Fine Needle Aspiration Biopsy In lcd Ultrasound Guidance Completed Medical Devices Description No Information Available Encounters Type Date Location Provider Dx Diagnosis Office Visit 03/06/2021 11:00a [facility] lAeksandr [place] Z47.89 Encounter for other orthopedic aftercare Office Visit 02/27/2021 1:15p [facility] Dat Will MD Z47.89 Encounter for other orthopedic aftercare Office Visit 12/31/2020 10:10a [facility] Santana Arreguin MD E04.2 Nontoxic multinodular goiter Office Visit 12/24/2020 2:30p [facility] Santana Arreguin MD [...] 1:00 pm - Dat Will MD at [facility] 03/13/2021 - Dat Will MD* Z47.89 Encounter for other orthopedic aftercare Functional Status Description No Information Available Mental Status Description No Information Available Referrals Refer to Reason for Referral Status Appt Date Santana Arreguin M.D. Thyroid mass on US Closed 1 [address] [place] [address] [phone]"
--- OUTSIDE RECORDS SUMMARY | 2021-04-10 07:19 | CCD | Continuity of Care Document ---
Author Author Anne WILL MD Organization Unknown Address [address] , [place] [address] Phone [phone] Care Team Providers Care Vendor Management Consultant Name Role Phone Amy Swenson AUTM Central Scheduling AUTM [phone] AUTM Unavailable Problems Active Problems Provider Date [...] needed seasonal allergies Unk nown Megared Superior [place]-3 Krill Oil Extra Strength 500mg Capsules Unknown [...] lb BMI (Body Mass Index) 32.4 kg/m2 [place] Body Weight 125 lb Weight 88.452 kg BSA (Body Surface Area) 1.96 m2 Results Test Acquired Date Facility Test Result H/L Range Note Laboratory test finding 02/16/2021 [facility] Main Lab [address] [place], [place] 624[address] [phone] Bedside Glucose 142 mg/dL High 80-115 CBC With Differential 02/16/2021 [facility] Main Lab [address] [place], [place] [phone] [phone] White Blood Count 8.4 10 Normal 4.0-10.0 [...] 36.0-66.0 Lymph % 9.1 % Low 24.0-44.0 [place] % 3.2 % Normal 2.0-8.0 Eos % 0.0 % Normal 0.0-3.0 Baso % 0.1 % Normal 0.0-1.0 Immature Granulocyte % 0.5 % Normal 0-3.0 Nucleated Red Blood Cell % 0.0 % Normal 0-0 Neutrophils # 7.3 10 Normal 1.5-8.5 Lymph # 0.8 10 Low 1.5-5.0 [place] # 0.3 10 Normal 0.0-0.8 Eos # 0.0 10 Normal 0.0-0.5 Baso # 0.0 10 Normal 0.0-0.2 Basic Metabolic Profile 02/16/2021 [facility] Main Lab [address] [place] [address] [phone] Glucose, Fasting 155 mg/dL High 70-100 Blood [...] mg/dL Normal 8.8-10.2 Laboratory test finding 02/16/2021 [facility] Main Lab [address] [place] [address] [phone] Magnesium Level 1.7 mg/dL Low 1.8-2.4 Laboratory test finding 02/16/2021 [facility] Main Lab [address] [place] [address] [phone] Bedside Glucose 177 mg/dL High 80-115 Laboratory test finding 02/15/2021 [facility] Main Lab [address] [place] [address] [phone] Coronavirus 2019 Nasopharygeal <pending> 2 Sars Covid-19 Amplification NEGATIVE Normal Negative 3 Laboratory test finding 12/24/2020 [facility] Main Lab [address] [place] [address] [phone] Non Sand Blaster/Cytology Req For Servi (SEE NOTE) 4 1 Units are mL/min/1.73 m2 Chronic Kidney Disease Staging per NKF: Stage I & II GFR >=60 Normal to Mildly Decreased Stage III GFR 30-59 Moderately Decreased Stage IV GFR 15-29 Severely Decreased Stage V GFR <15 Very Little GFR Left ESRD GFR <15 on MENTALLY IMPAIRED TEACHER 2 Comments: PREOP SCREENING By: FLOOR NURSE [...] pathogens. DISCLAIMER: Testing was performed using the [employer] SARS-CoV-2 test. This test was developed and its performance characteristics determined by [employer]. This test has not been FDA cleared [...] 0852 Procedures Date Code Description Status 12/31/2020 96655 Office/Outpatient Established Lo w MDM 20-29 Min Completed 12/24/2020 72262 Office/Outpatient New Low MDM 30 -44 Minutes Completed 12/24/2020 10669 Fine Needle Aspiration Biopsy In lcd Ultrasound Guidance Completed Medical Devices Description No Information Available Encounters Type Date Location Provider Dx Diagnosis Office Visit 02/27/2021 1:15p [facility] Orth[facility] Dat Will MD Z47.89 Encounter for other orthopedic aftercare Office Visit 12/31/2020 10:10a [facility] Santana Arreguin MD E04.2 Nontoxic multinodular goiter Office Visit 12/24/2020 2:30p [facility] Santana Arreguin MD E04.2 Nontoxic multinodular goiter Assessments Date Code Description Provider 02/27/2021 Z47.89 Encounter for other orthopedic a ftercare Dat Will MD 12/31/2020 E04.2 Nontoxic multinodular goiter Nor milka Arreguin MD 12/24/2020 E04.2 Nontoxic multinodular goiter Nor milka Arreguin MD Plan of Treatment Future Appointment(s):* 03/06/2021 11:00 am - Bhupendra Kirkland MD at [facility] * 03/13/2021 1:15 pm - Dat Will MD at [facility] 02/27/2021 - Dat Will MD* Z47.89 Encounter for other orthopedic aftercare Functional Status Description No Information Available Mental Status Description No Information Available Referrals Refer to Dr Reason for Referral Status Appt Santana Alcantar M.D. Thyroid mass on US Closed [address] [place] [address] [phone]
--- OUTSIDE RECORDS SUMMARY | 2021-04-10 07:19 | CCD | Continuity of Care Document ---
Author Author Anne DELUCA MD Organization Unknown Address [address] [place] [address] Phone [phone] Care Team Providers Care City Designer Name Role Phone Amy Swenson AUTM [phone] Central Scheduling AUTM [phone] AUTM Unavailable Problems Active Problems Provider Date [...] needed seasonal allergies Unk nown Megaalejandro Superior [place]-3 Krill Oil Extra Strength 500mg Capsules Unknown [...] lb BMI (Body Mass Index) 32.4 kg/m2 [place] Body Weight 125 lb Weight 88.452 kg BSA (Body Surface Area) 1.96 m2 Results Test Acquired Date Facility Test Result H/L Range Note Laboratory test finding 02/16/2021 [facility] Main Lab 0 [place], [place] [phone] [phone] Bedside Glucose 142 mg/dL High 80-115 CBC With Differential 02/16/2021 [facility] Main Lab [address] [place] [address] [phone] White Blood Count 8.4 10 Normal 4.0-10.0 [...] 36.0-66.0 Lymph % 9.1 % Low 24.0-44.0 [place] % 3.2 % Normal 2.0-8.0 Eos % 0.0 % Normal 0.0-3.0 Baso % 0.1 % Normal 0.0-1.0 Immature Granulocyte % 0.5 % Normal 0-3.0 Nucleated Red Blood Cell % 0.0 % Normal 0-0 Neutrophils # 7.3 10 Normal 1.5-8.5 Lymph # 0.8 10 Low 1.5-5.0 [place] # 0.3 10 Normal 0.0-0.8 Eos # 0.0 10 Normal 0.0-0.5 Baso # 0.0 10 Normal 0.0-0.2 Basic Metabolic Profile 02/16/2021 [facility] Main Lab 0 [place] [address] [phone] Glucose, Fasting 155 mg/dL High 70-100 Blood [...] mg/dL Normal 8.8-10.2 Laboratory test finding 02/16/2021 [facility] Main Lab [address] [place] [address] [phone] Magnesium Level 1.7 mg/dL Low 1.8-2.4 Laboratory test finding 02/16/2021 [facility] Main Lab [address] [place] [address] [phone] Bedside Glucose 177 mg/dL High 80-115 Laboratory test finding 02/15/2021 [facility] Main Lab [address] [place] [address] [phone] Coronavirus 2019 Nasopharygeal <pending> 2 Sars Covid-19 Amplification NEGATIVE Normal Negative 3 Laboratory test finding 12/24/2020 [facility] Main Lab [address] [place] [address] [phone] Non Manager Gaming/Cytology Req For Servi (SEE NOTE) 4 1 Units are mL/min/1.73 m2 Chronic Kidney Disease Staging per NKF: Stage I & II GFR >=60 Normal to Mildly Decreased Stage III GFR 30-59 Moderately Decreased Stage IV GFR 15-29 Severely Decreased Stage V GFR <15 Very Little GFR Left ESRD GFR <15 on ADVISOR CONSULTANT 2 Comments: PREOP SCREENING By: FLOOR NURSE [...] pathogens. DISCLAIMER: Testing was performed using the [employer] SARS-CoV-2 test. This test was developed and its performance characteristics determined by [employer]. This test has not been FDA cleared [...] 0852 Procedures Date Code Description Status 12/31/2020 62355 Office/Outpatient Established Lo w MDM 20-29 Min Completed 12/24/2020 02212 Office/Outpatient New Low MDM 30 -44 Minutes Completed 12/24/2020 37229 Fine Needle Aspiration Biopsy In lcd Ultrasound Guidance Completed Medical Devices Description No Information Available Encounters Type Date Location Provider Dx Diagnosis Office Visit 02/27/2021 1:15p [facility] Orth[facility] Dat Will MD Z47.89 Encounter for other orthopedic aftercare Office Visit 12/31/2020 10:10a [facility] Santana Arreguin MD E04.2 Nontoxic multinodular goiter Office Visit 12/24/2020 2:30p [facility] Santana Arreguin MD E04.2 [...] 1:15 pm - Dat Will MD at [facility] 03/06/2021 - Bhupendra Deluca MD* Z47.89 Encounter for other orthopedic aftercare Functional Status Description No Information Available Mental Status Description No Information Available Referrals Refer to Dr Reason for Referral Status Appt Santana Alcantar M.D. Thyroid mass on US Closed [address] [address] [phone]
--- OUTSIDE RECORDS SUMMARY | 2021-04-10 07:19 | CCD | Continuity of Care Document ---
Author Author Anne WILL MD Organization Unknown Address [address] , [facility] [place] [place] [address] Phone [phone] Care Team Providers Care Rod Drawer Name Role Phone Amy Swenson.N.P.-C. AUTM Central Scheduling AUTM [phone] AUTM Unavailable Problems Active Problems Provider Date [...] needed seasonal allergies Unk nown Megared Superior [place]-3 Krill Oil Extra Strength 500mg Capsules Unknown [...] H/L Range Note Laboratory test finding 02/16/2021 [facility] [address], [place] [id number] [phone] Bedside Glucose 142 mg/dL High 80-115 CBC With Differential 02/16/2021 [facility] [address], [place] [id number] [phone] White Blood Count 8.4 10 Normal 4.0-10.0 [...] 36.0-66.0 Lymph % 9.1 % Low 24.0-44.0 [place]shaw % 3.2 % Normal 2.0-8.0 Eos % 0.0 % Normal 0.0-3.0 Baso % 0.1 % Normal 0.0-1.0 Immature Granulocyte % 0.5 % Normal 0-3.0 Nucleated Red Blood Cell % 0.0 % Normal 0-0 Neutrophils # 7.3 10 Normal 1.5-8.5 Lymph # 0.8 10 Low 1.5-5.0 Crenshaw # 0.3 10 Normal 0.0-0.8 Eos # 0.0 10 Normal 0.0-0.5 Baso # 0.0 10 Normal 0.0-0.2 Basic Metabolic Profile 02/16/2021 [facility] [address] [place] [address] [id number] [phone] Glucose, Fasting 155 mg/dL High 70-100 Blood [...] mg/dL Normal 8.8-10.2 Laboratory test finding 02/16/2021 [facility] [address] [place] [address] [phone] Magnesium Level 1.7 mg/dL Low 1.8-2.4 Laboratory test finding 02/16/2021 [facility] [address], [place] [id number] [phone] Bedside Glucose 177 mg/dL High 80-115 Laboratory test finding 02/15/2021 [facility] [address] [place] [address] [phone] Coronavirus 2019 Nasopharygeal <pending> 2 Sars Covid-19 Amplification NEGATIVE Normal Negative 3 Laboratory test finding 12/24/2020 [facility] [address] [place] [address] [phone] Non Garment Finisher/Cytology Req For Niki (SEE NOTE) 4 1 Units are mL/min/1.73 m2 Chronic Kidney Disease Staging per NKF: Stage I & II GFR >=60 Normal to Mildly Decreased Stage III GFR 30-59 Moderately Decreased Stage IV GFR 15-29 Severely Decreased Stage V GFR <15 Very Little GFR Left ESRD GFR <15 on PATTERN DESIGNER 2 Comments: PREOP SCREENING By: FLOOR NURSE [...] pathogens. DISCLAIMER: Testing was performed using the [employer] SARS-CoV-2 test. This test was developed and its performance characteristics determined by [employer]. This test has not been FDA cleared [...] 0852 Procedures Date Code Description Status 12/31/2020 08819 Office/Outpatient Established Lo w MDM 20-29 Min Completed 12/24/2020 18611 Office/Outpatient New Low MDM 30 -44 Minutes Completed 12/24/2020 17016 Fine Needle Aspiration Biopsy In lcd Ultrasound Guidance Completed Medical Devices Description No Information Available Encounters Type Date Location Provider Dx Diagnosis Office Visit 03/06/2021 11:00a [facility] Aleksandr Phoenix Z47.89 Encounter for other orthopedic aftercare Office Visit 02/27/2021 1:15p [facility] [...] 1:00 pm - Dat Will MD at [facility] 03/13/2021 - Dat Will MD* Z47.89 Encounter for other orthopedic aftercare Functional Status Description No Information Available Mental Status Description No Information Available Referrals Refer to Reason for Referral Status Appt Date Santana Arreguin M.D. Thyroid mass on US Closed 1 [address] [place] [address] [phone]"
--- OUTSIDE RECORDS SUMMARY | 2021-04-10 07:20 | CCD | Continuity of Care Document ---
Author Author Anne WILL MD Organization Unknown Address [address] , [facility] [place] [address] Phone [phone] Care Team Providers Care Ore Crushing Dust Collector Name Role Phone Amy Swenson AUTM Central Scheduling AUTM [phone] AUTM Unavailable Problems Active Problems Provider Date [...] needed seasonal allergies Unk nown Megared Superior [place]-3 Krill Oil Extra Strength 500mg Capsules Unknown [...] lb BMI (Body Mass Index) 32.4 kg/m2 [place] Body Weight 125 lb Weight 88.452 kg BSA (Body Surface Area) 1.96 m2 Results Test Acquired Date Facility Test Result H/L Range Note Laboratory test finding 02/16/2021 [facility] [address] [place], [place] [id number] [phone] Bedside Glucose 142 mg/dL High 80-115 CBC With Differential 02/16/2021 [facility] Lab [address] [place], [place] [id number] [phone] White Blood Count 8.4 10 Normal 4.0-10.0 [...] 36.0-66.0 Lymph % 9.1 % Low 24.0-44.0 Allen % 3.2 % Normal 2.0-8.0 Eos % 0.0 % Normal 0.0-3.0 Baso % 0.1 % Normal 0.0-1.0 Immature Granulocyte % 0.5 % Normal 0-3.0 Nucleated Red Blood Cell % 0.0 % Normal 0-0 Neutrophils # 7.3 10 Normal 1.5-8.5 Lymph # 0.8 10 Low 1.5-5.0 Allen # 0.3 10 Normal 0.0-0.8 Eos # 0.0 10 Normal 0.0-0.5 Baso # 0.0 10 Normal 0.0-0.2 Basic Metabolic Profile 02/16/2021 [facility] [address] [place] [address] [phone] Glucose, Fasting 155 mg/dL High 70-100 Blood [...] mg/dL Normal 8.8-10.2 Laboratory test finding 02/16/2021 [facility] [address] [place] [address] [phone] Magnesium Level 1.7 mg/dL Low 1.8-2.4 Laboratory test finding 02/16/2021 [facility] [address] [place] [address] [phone] Bedside Glucose 177 mg/dL High 80-115 Laboratory test finding 02/15/2021 [facility] [address] [place] [address] [phone] Coronavirus 2019 Nasopharygeal <pending> 2 Sars Covid-19 Amplification NEGATIVE Normal Negative 3 Laboratory test finding 12/24/2020 [facility] [address] [place] [address] [phone] Non Wagon Person/Cytology Req For Servi (SEE NOTE) 4 1 Units are mL/min/1.73 m2 Chronic Kidney Disease Staging per NKF: Stage I & II GFR >=60 Normal to Mildly Decreased Stage III GFR 30-59 Moderately Decreased Stage IV GFR 15-29 Severely Decreased Stage V GFR <15 Very Little GFR Left ESRD GFR <15 on MEDICAL SUPERVISOR 2 Comments: PREOP SCREENING By: FLOOR [...] pathogens. DISCLAIMER: Testing was performed using the [employer] SARS-CoV-2 test. This test was developed and its performance characteristics determined by [employer]. This test has not been FDA cleared [...] 0852 Procedures Date Code Description Status 12/31/2020 52022 Office/Outpatient Established Lo w MDM 20-29 Min Completed 12/24/2020 19400 Office/Outpatient New Low MDM 30 -44 Minutes Completed 12/24/2020 02774 Fine Needle Aspiration Biopsy In lcd Ultrasound Guidance Completed Medical Devices Description No Information Available Encounters Type Date Location Provider Dx Diagnosis Office Visit 12/31/2020 10:10a [facility] Santana Arreguin MD E04.2 Nontoxic multinodular goiter Office Visit 12/24/2020 2:30p [facility] Satnana Arreguin MD E04.2 Nontoxic multinodular goiter Assessments Date Code Description Provider 02/27/2021 Z47.89 Encounter for other orthopedic a ftercwaqar Will MD 12/31/2020 E04.2 Nontoxic multinodular goiter Nor milka Arreguin MD 12/24/2020 E04.2 Nontoxic multinodular goiter Nor milka Arreguin MD Plan of Treatment Future Appointment(s):* 03/06/2021 11:00 am - Bhupendra Kirkland MD at [facility] * 03/13/2021 1:15 pm - Dat Will MD at [facility] 02/27/2021 - Dat Will MD* Z47.89 Encounter for other orthopedic aftercare* New Orders:* Walking Boot, Ordered: 02/27/21 * New Therapy:* Functional Status Description No Information Available Mental Status Description No Information Available Referrals Refer to Dr Reason for Referral Status Appt Snatana Alcantar M.D. Thyroid mass on US Closed [address] [address] [phone]
--- OUTSIDE RECORDS SUMMARY | 2021-04-10 07:20 | CCD ---
Author Author [facility] Organization [facility] Address Unknown Phone Unavailable Care Team Providers Care Alum Plant Supervisor Name Role Phone Recore, Isatu Lona WHNP Unavailable Unavailable Recore, Isatu Lona WHNP Unavailable Unavailable Recore, Isatu Lona WHNP Unavailable Unavailable Recore, Isatu Lona WHNP Unavailable Unavailable Recore, Isatu Lona WHNP Unavailable Unavailable Recore, Isatu Lona WHNP Unavailable Unavailable Recore, Isatu Lona WHNP Unavailable Unavailable Recore, Isatu Lona WHNP Unavailable Unavailable Recore, Isatu Lona WHNP Unavailable Unavailable Recore, Isatu Lona WHNP Unavailable Unavailable Recore, Isatu Lona WHNP Unavailable Unavailable Recore, Isatu Lona WHNP Unavailable Unavailable Recore, Isatu Lona WHNP Unavailable Unavailable Recore, Isatu Lona WHNP Unavailable Unavailable Recore, Isatu Lona WHNP Unavailable Unavailable Recore, Isatu Lona WHNP Unavailable Unavailable Recore, Isatu Lona WHNP Unavailable Unavailable Recore, Isatu Lona WHNP Unavailable Unavailable Recore, Isatu Lona WHNP Unavailable Unavailable Recore, Isatu Lona WHNP Unavailable Unavailable Recore, Isatu Lona WHNP Unavailable Unavailable Recore, Isatu Lona WHNP Unavailable Unavailable Recore, Isatu Lona WHNP Unavailable Unavailable Recore, Isatu Lona WHNP Unavailable Unavailable Recore, Isatu Lona WHNP Unavailable Unavailable Recore, Isatu Lona WHNP Unavailable Unavailable Recore, Isatu Lona WHNP Unavailable Unavailable Recore, Isatu Lona WHNP Unavailable Unavailable Recore, Isatu Olna WHNP Unavailable Unavailable Recore, Isatu Lona WHNP Unavailable Unavailable Recore, Isatu Lona WHNP Unavailable Unavailable [facility] Unavailable Unavailable Alberry, D Amy MANAGER WELLNESS Unavailable Unavailable Alberry, D Amy MANAGER WELLNESS Unavailable Unavailable Alberry, D Amy MANAGER WELLNESS Unavailable Unavailable Alberry, D Amy MANAGER WELLNESS Unavailable Unavailable Alberry, D Amy MANAGER WELLNESS Unavailable Unavailable Alberry, D Amy MANAGER WELLNESS Unavailable Unavailable Alberry, D Amy MANAGER WELLNESS Unavailable Unavailable Alberry, D Amy MANAGER WELLNESS Unavailable Unavailable Alberry, D Amy MANAGER WELLNESS Unavailable Unavailable Alberry, D Amy MANAGER WELLNESS Unavailable Unavailable Alberry, D Amy MANAGER WELLNESS Unavailable Unavailable Alberry, D Amy MANAGER WELLNESS Unavailable Unavailable Alberry, D Amy MANAGER WELLNESS Unavailable Unavailable Alberry, D Amy MANAGER WELLNESS Unavailable Unavailable Alberry, D Amy MANAGER WELLNESS Unavailable Unavailable Alberry, D Amy MANAGER WELLNESS Unavailable Unavailable Alberry, D Amy MANAGER WELLNESS Unavailable Unavailable Alberry, D Amy MANAGER WELLNESS Unavailable Unavailable Alberry, D Amy MANAGER WELLNESS Unavailable Unavailable Alberry, D Amy MANAGER WELLNESS Unavailable Unavailable Alberry, D Amy MANAGER WELLNESS Unavailable Unavailable Alberry, D Amy MANAGER WELLNESS Unavailable Unavailable Alberry, D Amy MANAGER WELLNESS Unavailable Unavailable Alberry, D Amy MANAGER WELLNESS Unavailable Unavailable Alberry, D Amy MANAGER WELLNESS Unavailable Unavailable Alberry, D Amy MANAGER WELLNESS Unavailable Unavailable Alberry, D Amy MANAGER WELLNESS Unavailable Unavailable Alberry, D Amy MANAGER WELLNESS Unavailable Unavailable Alberry, D Amy MANAGER WELLNESS Unavailable Unavailable Alberry, D Amy MANAGER WELLNESS Unavailable Unavailable Alberry, D Amy MANAGER WELLNESS Unavailable Unavailable Alberry, D Amy MANAGER WELLNESS Unavailable Unavailable Alberry, D Amy MANAGER WELLNESS Unavailable Unavailable Alberry, D Amy MANAGER WELLNESS Unavailable Unavailable Alberry, D Amy MANAGER WELLNESS Unavailable Unavailable Alberry, D Amy MANAGER WELLNESS Unavailable Unavailable Alberry, D Amy MANAGER WELLNESS Unavailable Unavailable Alberry, D Amy MANAGER WELLNESS Unavailable Unavailable Alberry, D Amy MANAGER WELLNESS Unavailable Unavailable Alberry, D Amy MANAGER WELLNESS Unavailable Unavailable Alberry, D Amy MANAGER WELLNESS Unavailable Unavailable Alberry, D Amy MANAGER WELLNESS Unavailable Unavailable Alberry, D Amy MANAGER WELLNESS Unavailable Unavailable Alberry, D Amy MANAGER WELLNESS Unavailable Unavailable Alberry, D Amy MANAGER WELLNESS Unavailable Unavailable Alberry, D Amy MANAGER WELLNESS Unavailable Unavailable Alberry, D Amy MANAGER WELLNESS Unavailable Unavailable Alberry, D Amy MANAGER WELLNESS Unavailable Unavailable Alberry, D Aym MANAGER WELLNESS Unavailable Unavailable Alberry, D Amy MANAGER WELLNESS Unavailable Unavailable Alberry, D Amy MANAGER WELLNESS Unavailable Unavailable Alberry, D Amy MANAGER WELLNESS Unavailable Unavailable Alberry, D Amy MANAGER WELLNESS Unavailable Unavailable Alberry, D Amy MANAGER WELLNESS Unavailable Unavailable Alberry, D Amy MANAGER WELLNESS Unavailable Unavailable SYMENOW, G CHRISTOPHER PA Unavailable Unavailable SYMENOW, G CHRISTOPHER PA Unavailable Unavailable SYMENOW, G CHRISTOPHER PA Unavailable Unavailable SYMENOW, G CHRISTOPHER PA Unavailable Unavailable SYMENOW, G CHRISTOPHER PA Unavailable Unavailable SYMENOW, G CHRISTOPHER PA Unavailable Unavailable SYMENOW, G CHRISTOPHER PA Unavailable Unavailable SYMENOW, G CHRISTOPHER PA Unavailable Unavailable SYMENOW, G CHRISTOPHER PA Unavailable Unavailable SYMENOW, G CHRISTOPHER PA Unavailable Unavailable SYMENOW, G CHRISTOPHER PA Unavailable Unavailable SYMENOW, G CHRISTOPHER PA Unavailable Unavailable SYMENOW, G CHRISTOPHER PA Unavailable Unavailable SYMENOW, G CHRISTOPHER PA Unavailable Unavailable SYMENOW, G CHRISTOPHER PA Unavailable Unavailable SYMENOW, G CHRISTOPHER PA Unavailable Unavailable Aleksandr Will MD Unavailable Unavailable BiedronAleksandr MD Unavailable Unavailable BiAleksandr goode MD Unavailable Unavailable BautistaronAleksandr MD Unavailable Unavailable EmanueledronAleksandr MD Unavailable Unavailable BautistaronAleksandr MD Unavailable Unavailable BisergeironAleksandr MD Unavailable Unavailable Aleksandr Will MD Unavailable Unavailable Aleksandr Will MD Unavailable Unavailable Sunny BAUMANN MD Unavailable Unavailable Sunny BAUMANN MD Unavailable Unavailable Sunny BAUMANN MD Unavailable Unavailable Sunny BAUMANN MD Unavailable Unavailable Sunny BAUMANN MD Unavailable Unavailable Sunny BAUMANN MD Unavailable Unavailable Sunny BAUMANN MD Unavailable Unavailable Sunny BAUMANN MD Unavailable Unavailable Sunny BAUMANN MD Unavailable Unavailable Sunny BAUMANN MD Unavailable Unavailable Sunny BAUMANN MD Unavailable Unavailable Sunny BAUMANN MD Unavailable Unavailable Sunny BAUMANN MD Unavailable Unavailable Sunny BAUMANN MD Unavailable Unavailable Sunny BAUMANN MD Unavailable Unavailable Sunny BAUMANN MD Unavailable Unavailable Sunny BAUMANN MD Unavailable Unavailable Sunny BAUMANN MD Unavailable Unavailable Sunny BAUMANN MD Unavailable Unavailable Sunny BAUMANN MD Unavailable Unavailable Sunny BAUMANN MD Unavailable Unavailable Sunny BAUMANN MD Unavailable Unavailable BEREKET, SHARON TERRY PA Unavailable Unavailable BEREKET, SHARON TERRY PA Unavailable Unavailable BEREKET, SHARON TERRY PA Unavailable Unavailable BEREKET, SHARON TERRY PA Unavailable Unavailable BEREKET, SHARON TERRY PA Unavailable Unavailable BEREKET, SHARON TERRY PA Unavailable Unavailable BEREKET, SHARON TERRY PA Unavailable Unavailable BEREKET, SHARON TERRY PA Unavailable Unavailable BEREKET, SHARON TERRY PA Unavailable Unavailable BEREKET, SHARON TERRY PA Unavailable Unavailable BEREKET, SHARON TERRY PA Unavailable Unavailable BEREKET, SHARON TERRY PA Unavailable Unavailable BEREKET, SHARON TERRY PA Unavailable Unavailable BEREKET, SHARON TERRY PA Unavailable Unavailable BEREKET, SHARON TERRY PA Unavailable Unavailable BEREKET, SHARON TERRY PA Unavailable Unavailable BEREKET, SHARON TERRY PA Unavailable Unavailable BEREKET, SHARON TERRY PA Unavailable Unavailable BEREKET, SHARON TERRY PA Unavailable Unavailable BEREKET, SHARON TERRY PA Unavailable Unavailable BEREKET, SHARON TERRY PA Unavailable Unavailable BEREKET, SHARON TERRY PA Unavailable Unavailable Recore, Isatu Lona WHNP Unavailable Unavailable Recore, Isatu Lona WHNP Unavailable Unavailable Recore, Isatu Lona WHNP Unavailable Unavailable Recore, Isatu Lona WHNP Unavailable Unavailable Recore, Isatu Lona WHNP Unavailable Unavailable Recore, Isatu Lona WHNP Unavailable Unavailable Recore, Isatu Lona WHNP Unavailable Unavailable Recore, Isatu Lona WHNP Unavailable Unavailable Recore, Isatu Lona WHNP Unavailable Unavailable Recore, Isatu Lona WHNP Unavailable Unavailable Recore, Isatu Lona WHNP Unavailable Unavailable Recore, Isatu Lona WHNP Unavailable Unavailable Recore, Isatu Lona WHNP Unavailable Unavailable Recore, Isatu Lona WHNP Unavailable Unavailable Recore, Isatu Lona WHNP Unavailable Unavailable Recore, Isatu Lona WHNP Unavailable Unavailable Recore, Isatu Lona WHNP Unavailable Unavailable Recore, Isatu Lona WHNP Unavailable Unavailable Recore, Isatu Lona WHNP Unavailable Unavailable Recore, Isatu Lona WHNP Unavailable Unavailable Recore, Isatu Lona WHNP Unavailable Unavailable Recore, Isatu Lona WHNP Unavailable Unavailable Recore, Isatu Lona WHNP Unavailable Unavailable Recore, Isatu Lona WHNP Unavailable Unavailable Recore, Isatu Lona WHNP Unavailable Unavailable Recore, Isatu Lona WHNP Unavailable Unavailable Recore, Isatu Lona WHNP Unavailable Unavailable Recore, Isatu Lona WHNP Unavailable Unavailable Recore, Isatu Lona WHNP Unavailable Unavailable Recore, Isatu Lona WHNP Unavailable Unavailable Recore, Isatu Lona WHNP Unavailable Unavailable Farhat, Regbrianh W Loren MANAGER WELLNESS-C Unavailable Unavailabl e Farhat, Reginah W Loren MANAGER WELLNESS-C Unavailable Unavailabl e Farhat, Reginah W Loren MANAGER WELLNESS-C Unavailable Unavailabl e Farhat, Reginah W Loren MANAGER WELLNESS-C Unavailable Unavailabl e Farhat, Reginah W Loren MANAGER WELLNESS-C Unavailable Unavailabl e Farhat, Reginah W Loren MANAGER WELLNESS-C Unavailable Unavailabl e Farhat, Reginah W Loren MANAGER WELLNESS-C Unavailable Unavailabl e Farhat, Reginah W Loren MANAGER WELLNESS-C Unavailable Unavailabl e Farhat, Reginah W Loren MANAGER WELLNESS-C Unavailable Unavailabl e Farhat, Reginah W Loren MANAGER WELLNESS-C Unavailable Unavailabl e Farhat, Reginah W Loren MANAGER WELLNESS-C Unavailable Unavailabl e Farhat, Reginah W Loren MANAGER WELLNESS-C Unavailable Unavailabl e Farhat, Reginah W Loren MANAGER WELLNESS-C Unavailable Unavailabl e Farhat, Reginah W Loren MANAGER WELLNESS-C Unavailable Unavailabl e Farhat, Reginah W Loren MANAGER WELLNESS-C Unavailable Unavailabl e Farhat, Reginah W Loren MANAGER WELLNESS-C Unavailable Unavailabl e Farhat, Kathi W Loren MANAGER WELLNESS-C Unavailable Unavailabl e Farhat, Reginasyeda W Loren MANAGER WELLNESS-C Unavailable Unavailabl e Farhat, Reginah W Loren MANAGER WELLNESS-C Unavailable Unavailabl e Farhat, Reginah W Loren MANAGER WELLNESS-C Unavailable Unavailabl e Farhat, Reginah W Loren MANAGER WELLNESS-C Unavailable Unavailabl e Farhat, Reginah W Loren MANAGER WELLNESS-C Unavailable Unavailabl e Farhat, Reginah W Loren MANAGER WELLNESS-C Unavailable Unavailabl e Farhat, Reginah W Loren MANAGER WELLNESS-C Unavailable Unavailabl e Farhat, Reginah W Loren MANAGER WELLNESS-C Unavailable Unavailabl e Farhat, Reginah W Loren MANAGER WELLNESS-C Unavailable Unavailabl e Farhat, Reginasyeda W Loren MANAGER WELLNESS-C Unavailable Unavailabl e Farhat, Reginah W Loren MANAGER WELLNESS-C Unavailable Unavailabl e Farhat, Reginah W Loren MANAGER WELLNESS-C Unavailable Unavailabl e Farhat, Terrellinasyeda W Loren MANAGER WELLNESS-C Unavailable Unavailabl e Farhat, Terrellinasyeda W Loren MANAGER WELLNESS-C Unavailable Unavailabl e Farhat, Terrellinasyeda W Loren MANAGER WELLNESS-C Unavailable Unavailabl e LOGEL, J CLAUDE Unavailable Unavailable Santana Arreguin MD Unavailable Unavailable Santana Arreguin MD Unavailable Unavailable Santana Arreguin MD Unavailable Unavailable Santana Arreguin MD Unavailable Unavailable Santana Arreguin MD Unavailable Unavailable Santana Arreguin MD Unavailable Unavailable Santana Arreguin MD Unavailable Unavailable Santana Arreguin MD Unavailable Unavailable Santana Arreguin MD Unavailable Unavailable Santana Arreguin MD Unavailable Unavailable Santana Arreguin MD Unavailable Unavailable Santana Arreguin MD Unavailable Unavailable Santana Arreguin MD Unavailable Unavailable Santana Arreguin MD Unavailable Unavailable Santana Arreguin MD Unavailable Unavailable Santana Arreguin MD Unavailable Unavailable Santana Arreguin MD Unavailable Unavailable Santana Arreguin MD Unavailable Unavailable Santana Arreguin MD Unavailable Unavailable Santana Arreguin MD Unavailable Unavailable Santana Arreguin MD Unavailable Unavailable Santana Arreguin MD Unavailable Unavailable [place], Santana MD Unavailable Unavailable [place], Santana MD Unavailable Unavailable [place], Santana MD Unavailable Unavailable [place], Santana MD Unavailable Unavailable [place], Santana MD Unavailable Unavailable [place], Santana MD Unavailable Unavailable [place], Santana MD Unavailable Unavailable [place], Santana MD Unavailable Unavailable [place], Santana MD Unavailable Unavailable [place], C Bhupendra MD Unavailable Unavailable [place], C Bhupendra MD Unavailable Unavailable [place], C Bhupendra MD Unavailable Unavailable [place], C Bhupendra MD Unavailable Unavailable [place], C Bhupendra MD Unavailable Unavailable [place], C Bhupendra MD Unavailable Unavailable [place], C Bhupendra MD Unavailable Unavailable Re-disclosure Warning The records that you are about to access may contain information from federally-assisted alcohol or drug abuse programs. If such information is present, then the following federally mandated warning applies: This information has been disclosed to you from records protected by federal confidentiality rules (42 CFR part 2). The federal rules prohibit you from making any further disclosure of this information unless further disclosure is expressly permitted by the written consent of the person to whom it pertains or as otherwise permitted by 42 CFR part 2. A general authorization for the release of medical or other information is NOT sufficient for this purpose. The Federal rules restrict any use of the information to criminally investigate or prosecute any alcohol or drug abuse patient.The records that you are about to access may contain highly sensitive health information, the redisclosure of which is protected by Article 27-F of the [facility] Public Health law. If you continue you may have access to information: Regarding HIV / AIDS; Provided by facilities licensed or operated by the [facility] Office of Mental Health; or Provided by the [facility] Office for People With Developmental Disabilities. If such information is present, then the following [facility] mandated warning applies: This information has been disclosed to you from confidential records which are protected by state law. State law prohibits you from making any further disclosure of this information without the specific written consent of the person to whom it pertains, or as otherwise permitted by law. Any unauthorized further disclosure in violation of state law may result in a fine or assisted sentence or both. A general authorization for the release of medical or other information is NOT sufficient authorization for further disc losure. Allergies and Adverse Reactions Type Description Substance Reaction Status Data Source(s ) Drug allergy Sulfa (Sulfonamide Antibiotics) Sulfa (Sulfonami de Antibiotics) ITCHING [facility] Drug allergy Penicillins Penicillins ITCHING [facility] ital Encounters Encounter Providers Location Date Indications Data Source(s ) Preadmit Attender: JOSE BAUMANN MD 05/01/2021 07:3 0:00 AM [facility] Outpatient Attender: Isatu CALVILLOConsultant: [id number] 04/07/2021 12:25:00 PM [facility] Outpatient Attender: Isatu ALARCONNP EMERGE NCY ROOM-LAB NOT ORDERED BY [facility] 04/07/2021 12:03:00 PM EST - 04/07/2021 12:03:00 PM [facility] Unknown [address] [facility] [address] 04/02/2021 12:00:00 AM EST eCW1 ([facility]) Outpatient [address] [facility] [facility] [address] 03/28/2021 12:00:00 AM EDT eCW1 ([facility]) Preadmit Attender: JOSE BAUMANN MD 03/27/2021 07:0 0:00 AM [facility] Outpatient Attender: Dat Will MD 03/24/2021 09:51:0 0 AM [facility] Unknown [address] [facility] [facility] [address] 03/19/2021 12:00:00 AM EDT eCW1 ([facility]) [place] [address] [facility] [address] 03/14/2021 12:00:00 AM EDT eCW1 ([facility]) Office Visit Attender: Dat Zheng/Rodríguez/Elias/R eindl 03/13/2021 01:15:00 PM EDT MEDENT ([facility]) Outpatient Attender: Dat Will MD 10:24:00 AM EDT - 03/21/2021 09:51:00 AM [facility] Patient discharged. Office Visit Attender: Bhupendra Zheng/Rodríguez/Elias/Andrzej ndl 03/06/2021 11:00:00 AM EDT [facility] ([facility]) [place] [address] [facility] [facility] [address] 03/04/2021 12:00:00 AM EDT eCW1 ([facility]) Emergency Attender: JOSE FOSTERttender : T[facility]Y [facility]-ER 03/03/2021 07:25:00 PM EDT - 03/03/2021 10:16:00 PM EDT [facility] Patient discharged. Unknown [address] [facility] [facility] [address] 03/03/2021 12:00:00 AM EDT eCW1 ([facility]) [place] [address] [facility] [facility] [address] 03/02/2021 12:00:00 AM EDT [facility]CW1 [facility] Office Visit Attender: Dat Zheng/Rodríguez/Elias/Augie hardy 02/27/2021 01:15:00 PM EDT [facility] ([facility]) [place] [address] [facility] [facility] [address] 02/20/2021 12:00:00 AM EDT eCW1 ([facility]) Unknown [address] [facility] [facility] [address] 02/20/2021 12:00:00 AM EDT eCW1 ([facility]) [place] [address] [facility] [facility] [address] 02/13/2021 12:00:00 AM EDT eCW1 ([facility]) Outpatient Attender: Loren ASHER 01/29/2021 09:08:0 0 AM EDT [facility] Outpatient [facility] 01/29/2021 12:00:00 AM EDT eCW1 ([facility]) [place] [address] [facility] [facility] [address] 01/20/2021 12:00:00 AM EDT eCW1 ([facility]) [place] [address] [facility] [facility] [address] 01/13/2021 12:00:00 AM EDT eCW1 ([facility]) Outpatient Attender: Santana Zheng/Rodríguez/Elias/Reind l 12/31/2020 10:10:00 AM EDT [facility] ([facility]) [place] [address] [facility] [address] 12/30/2020 12:00:00 AM EDT eCW1 ([facility]) Outpatient Attender: Santana Zheng/Rodríguez/Elias/Reind l 12/24/2020 02:30:00 PM EDT [facility] ([facility]) [place] [address] [facility] [address] 12/16/2020 12:00:00 AM EDT eCW1 ([facility]) Outpatient Attender: Amy LOZA 12/12/2020 01:00 :00 PM [facility] Unknown [address] [facility] [facility] [address] 12/10/2020 12:00:00 AM EDT eCW1 ([facility]) Outpatient [address] [facility] [facility] [address] 11/28/2020 12:00:00 AM EDT eCW1 ([facility]) Outpatient Attender: CLAUDE Hicksender: CLAUDE AMBROSE 01/03/2018 11:08:00 AM EDT - 01/03/2018 11:08:00 AM [facility] Immunizations Vaccine Date Status Description Data Source(s) Moderna #2 dose COVID-19 (given elsewhere) SARSCOV2 [facility] C 100MCG/0.5ML IM 10/09/2020 07:07:00 AM EDT completed eCW1 ([facility]) Moderna #2 dose COVID-19 (given elsewhere) SARSCOV2 VA C 100MCG/0.5ML IM 10/09/2020 07:07:00 AM EDT completed eCW1 ([facility]) Moderna #2 dose COVID-19 (given elsewhere) SARSCOV2 VA C 100MCG/0.5ML IM 10/09/2020 07:07:00 AM EDT completed eCW1 ([facility]) Moderna #2 dose COVID-19 (given elsewhere) SARSCOV2 VA C 100MCG/0.5ML IM 10/09/2020 07:07:00 AM EDT completed eCW1 ([facility]) Moderna #2 dose COVID-19 (given elsewhere) SARSCOV2 VA C 100MCG/0.5ML IM 10/09/2020 07:07:00 AM EDT completed eCW1 ([facility]) Moderna #2 dose COVID-19 (given elsewhere) SARSCOV2 VA C 100MCG/0.5ML IM 10/09/2020 07:07:00 AM EDT completed eCW1 ([facility]) Moderna #2 dose COVID-19 (given elsewhere) SARSCOV2 VA C 100MCG/0.5ML IM 10/09/2020 07:07:00 AM EDT completed eCW1 ([facility]) Moderna #2 dose COVID-19 (given elsewhere) SARSCOV2 VA C 100MCG/0.5ML IM 10/09/2020 07:07:00 AM EDT completed eCW1 ([facility]) Moderna #2 dose COVID-19(given elsewhere) SARSCOV2 VAC 100MCG/0.5ML IM 10/09/2020 07:07:00 AM EDT completed eCW1 ([facility]) Moderna #2 dose COVID-19(given elsewhere) SARSCOV2 VAC 100MCG/0.5ML IM 10/09/2020 07:07:00 AM EDT completed eCW1 ([facility]) Moderna #2 dose COVID-19(given elsewhere) SARSCOV2 VAC 100MCG/0.5ML IM 10/09/2020 07:07:00 AM EDT completed eCW1 ([facility]) Moderna #2 dose COVID-19(given elsewhere) SARSCOV2 VAC 100MCG/0.5ML IM 10/09/2020 07:07:00 AM EDT completed eCW1 ([facility]) Moderna #2 dose COVID-19(given elsewhere) SARSCOV2 VAC 100MCG/0.5ML IM 10/09/2020 07:07:00 AM EDT completed eCW1 ([facility]) Moderna #2 dose COVID-19(given elsewhere) SARSCOV2 VAC 100MCG/0.5ML IM 10/09/2020 07:07:00 AM EDT completed eCW1 ([facility]) Moderna #2 dose COVID-19(given elsewhere) SARSCOV2 VAC 100MCG/0.5ML IM 10/09/2020 07:07:00 AM EDT completed eCW1 ([facility]) Moderna #2 dose COVID-19(given elsewhere) SARSCOV2 VAC 100MCG/0.5ML IM 10/09/2020 07:07:00 AM EDT completed eCW1 ([facility]) COVID-19 VACC,MRNA(MODERNA)/PF 10/09/2020 12:00:00 AM EDT completed [facility] COVID-19 VACCINE Moderna 10/09/2020 12:00:00 AM EDT completed [employer] Vaccine Series Complete: YESThis Data wa s Submitted to [facility] Via [employer]. Moderna #1 dose COVID-19 (given elsewhere) SARSCOV2 VA C 100MCG/0.5ML IM 09/15/2020 07:07:00 AM EDT completed eCW1 ([facility]) Moderna #1 dose COVID-19 (given elsewhere) SARSCOV2 VA C 100MCG/0.5ML IM 09/15/2020 07:07:00 AM EDT completed eCW1 ([facility]) Moderna #1 dose COVID-19 (given elsewhere) SARSCOV2 VA C 100MCG/0.5ML IM 09/15/2020 07:07:00 AM EDT completed eCW1 ([facility]) Moderna #1 dose COVID-19 (given elsewhere) SARSCOV2 VA C 100MCG/0.5ML IM 09/15/2020 07:07:00 AM EDT completed eCW1 ([facility]) Moderna #1 dose COVID-19 (given elsewhere) SARSCOV2 VA C 100MCG/0.5ML IM 09/15/2020 07:07:00 AM EDT completed eCW1 ([facility]) Moderna #1 dose COVID-19 (given elsewhere) SARSCOV2 VA C 100MCG/0.5ML IM 09/15/2020 07:07:00 AM EDT completed eCW1 ([facility]) Moderna #1 dose COVID-19 (given elsewhere) SARSCOV2 VA C 100MCG/0.5ML IM 09/15/2020 07:07:00 AM EDT completed eCW1 ([facility]) Moderna #1 dose COVID-19 (given elsewhere) SARSCOV2 VA C 100MCG/0.5ML IM 09/15/2020 07:07:00 AM EDT completed eCW1 ([facility]) Moderna #1 dose COVID-19(given elsewhere) SARSCOV2 VAC 100MCG/0.5ML IM 09/15/2020 07:07:00 AM EDT completed eCW1 ([facility]) Moderna #1 dose COVID-19(given elsewhere) SARSCOV2 VAC 100MCG/0.5ML IM 09/15/2020 07:07:00 AM EDT completed eCW1 ([facility]) Moderna #1 dose COVID-19(given elsewhere) SARSCOV2 VAC 100MCG/0.5ML IM 09/15/2020 07:07:00 AM EDT completed eCW1 ([facility]) Moderna #1 dose COVID-19(given elsewhere) SARSCOV2 VAC 100MCG/0.5ML IM 09/15/2020 07:07:00 AM EDT completed eCW1 ([facility]) Moderna #1 dose COVID-19(given elsewhere) SARSCOV2 VAC 100MCG/0.5ML IM 09/15/2020 07:07:00 AM EDT completed eCW1 ([facility]) Moderna #1 dose COVID-19(given elsewhere) SARSCOV2 VAC 100MCG/0.5ML IM 09/15/2020 07:07:00 AM EDT completed eCW1 ([facility]) Moderna #1 dose COVID-19(given elsewhere) SARSCOV2 VAC 100MCG/0.5ML IM 09/15/2020 07:07:00 AM EDT completed eCW1 ([facility]) Moderna #1 dose COVID-19(given elsewhere) SARSCOV2 VAC 100MCG/0.5ML IM 09/15/2020 07:07:00 AM EDT completed eCW1 ([facility]) COVID-19 VACCINE Moderna 09/15/2020 12:00:00 AM EDT completed [facility] Vaccine Series Complete: NOThis Data was Submitted to [facility] Via [facility]. COVID-19 VACC,MRNA(MODERNA)/PF 09/15/2020 12:00:00 AM EDT completed [facility] Medications Medication Brand Name Start Date Product Form Dose Route Admi nistrative Instructions Pharmacy Instructions Status Indications Reaction Description Data Source(s) Acetaminophen 325 MG / Hydrocodone Leandro trate 5 MG Oral Tablet HYDROcodone- Acetaminophen 5-325 MG HYDROcodone-Acetaminophen 5-325 MG 03/14/2021 12:00:00 AM EDT 1.0 {tablet_as_needed} suspended HYDROcodone-Acetaminophen 5-325 MG eCW1 ([facility]) 0.4 mg 03/14/2021 12:00:00 AM EDT capsule 5 TAKE ONE CAPSULE BY MOUTH EVERY DAY TAKE ONE CAPSULE BY MOUTH EVERY DAY SOLD: 03/14/2021 [facility] Acetaminophen 325 MG / Hydrocodone Leandro trate 5 MG Oral Tablet HYDROcodone- Acetaminophen 5-325 MG HYDROcodone-Acetaminophen 5-325 MG 03/14/2021 12:00:00 AM EDT 1.0 {tablet_as_needed} suspended eCW1 ([facility]) Acetaminophen 325 MG / Hydrocodone Bitartrate 5 MG Ora l Tablet 5-325 mg HYDROCODONE/ACETAMINOPHEN 03/14/2021 12:00:00 AM EDT tablet 12 TAKE ONE TABLET BY MOUTH EVERY 6 HOURS NEEDED MAXIMUM DAILY DOSE = 4 TAKE ONE TABLET BY MOUTH EVERY 6 HOURS NEEDED MAXIMUM DAILY DOSE = 4 SOLD: 03/14/2021 [facility] Acetaminophen 325 MG / Hydrocodone Leandro trate 5 MG Oral Tablet HYDROcodone- Acetaminophen 5-325 MG HYDROcodone-Acetaminophen 5-325 MG 03/14/2021 12:00:00 AM EDT 1.0 {tablet_as_needed} suspended eCW1 ([facility]) Acetaminophen 325 MG / Hydrocodone Leandro trate 5 MG Oral Tablet HYDROcodone- Acetaminophen 5-325 MG HYDROcodone-Acetaminophen 5-325 MG 03/14/2021 12:00:00 AM EDT 1.0 {tablet_as_needed} active HYDROcodone-Acetaminophen 5-325 MG eCW1 ([facility]) 0.4 mg 03/10/2021 12:00:00 AM EDT capsule 5 TAKE ONE CAPSULE BY MOUTH ONCE A DAY TAKE ONE CAPSULE BY MOUTH ONCE A DAY SOLD: 03/10/2021 [facility] Acetaminophen 325 MG / Hydrocodone Bitartrate 5 MG Ora l Tablet 5-325 mg HYDROCODONE/ACETAMINOPHEN 03/10/2021 12:00:00 AM EDT tablet 12 TAKE ONE TABLET BY MOUTH EVERY 6 HOURS NEEDED MAXIMUM DAILY DOSE = 4 TAKE ONE TABLET BY MOUTH EVERY 6 HOURS NEEDED MAXIMUM DAILY DOSE = 4 SOLD: 03/10/2021 [facility] Tamsulosin hydrochloride 0.4 MG Oral Capsule Tamsulosi n HCl 0.4 MG Tamsulosin HCl 0.4 MG 03/04/2021 12:00:00 AM EDT 1.0 {capsule} susp ended eCW1 ([facility]) Tamsulosin hydrochloride 0.4 MG Oral Capsule Tamsulosi n HCl 0.4 MG Tamsulosin HCl 0.4 MG 03/04/2021 12:00:00 AM EDT 1.0 {capsule} suspended Tamsulosin HCl 0.4 MG eCW1 ([facility]) 0.4 mg 03/04/2021 12:00:00 AM EDT capsule 5 TAKE ONE CAPSULE BY MOUTH EVERY DAY TAKE ONE CAPSULE BY MOUTH EVERY DAY SOLD: 03/04/2021 [facility] Acetaminophen 325 MG / Hydrocodone Leandro trate 5 MG Oral Tablet HYDROcodone- Acetaminophen 5-325 MG HYDROcodone-Acetaminophen 5-325 MG 03/04/2021 12:00:00 AM EDT 1.0 {tablet_as_needed} active HYDROcodone-Acetaminophen 5-325 MG eCW1 ([facility]) Acetaminophen 325 MG / Hydrocodone Bitartrate 5 MG Ora l Tablet 5-325 mg HYDROCODONE/ACETAMINOPHEN 03/04/2021 12:00:00 AM EDT tablet 20 TAKE ONE TABLET BY MOUTH EVERY 6 HOURS NEEDED MAXIMUM DAILY DOSE = 4 TABLETS TAKE ONE TABLET BY MOUTH EVERY 6 HOURS NEEDED MAXIMUM DAILY DOSE = 4 TABLETS SOLD: 03/04/2021 [facility] Tamsulosin hydrochloride 0.4 MG Oral Capsule Tamsulosi n HCl 0.4 MG Tamsulosin HCl 0.4 MG 03/04/2021 12:00:00 AM EDT 1.0 {capsule} active Tamsulosin HCl 0.4 MG eCW1 ([facility]) Tamsulosin hydrochloride 0.4 MG Oral Capsule Tamsulosi n HCl 0.4 MG Tamsulosin HCl 0.4 MG 03/04/2021 12:00:00 AM EDT 1.0 {capsule} active Tamsulosin HCl 0.4 MG eCW1 ([facility]) Tamsulosin hydrochloride 0.4 MG Oral Capsule Tamsulosi n HCl 0.4 MG Tamsulosin HCl 0.4 MG 03/04/2021 12:00:00 AM EDT 1.0 {capsule} susp ended eCW1 ([facility]) 200 mg 03/02/2021 12:00:00 AM EDT tablet 6 TAKE ONE TABLET BY MOUTH THREE TIMES A DAY NEEDED TAKE ONE TABLET BY MOUTH THREE TIMES A DAY NEEDED S OLD: 03/02/2021 [facility] NITROFURANTOIN, MACROCRYSTALS 25 MG / Ni trofurantoin, Monohydrate 75 MG Oral Capsule 100 mg NITROFURANTOIN MONOHYD/M-CRYST 03/02/2021 12:00:00 AM EDT ca psule 10 TAKE ONE CAPSULE BY MOUTH TWICE A DAY FOR 5 DAYS TAKE ONE CAPSULE BY MOUTH TWICE A DAY FOR 5 DAYS SOLD: 03/02/2021 [facility] 5 mg 02/27/2021 12:00:00 AM EDT tablet 12 TAKE ONE TABLET BY MOUTH EVERY 6 HOURS NEEDED FOR 8/10 PAIN MAXIMUM DAILY DOSE = 4 TABLETS TAKE ONE TABLET BY MOUTH EVERY 6 HOURS NEEDED FOR 8/10 PAIN MAXIMUM DAILY DOSE = 4 TABLETS SOLD: 02/27/2021 [facility] 24 HR Phentermine 11.25 MG / topiramate 69 MG Extended Release Oral Capsule [Qsymia] Qsymia 11.25-69 MG Qsymia 11.25-69 MG 02/27/2021 12:00:00 AM EDT 1.0 {capsule} active eCW1 ([facility]) 24 HR Phentermine 11.25 MG / topiramate 69 MG Extended Release Oral Capsule [Qsymia] Qsymia 11.25-69 MG Qsymia 11.25-69 MG 02/27/2021 12:00:00 AM EDT 1.0 {capsule} active Qsymia 11.25-69 MG eCW 1 ([facility]) 24 HR Phentermine 11.25 MG / topiramate 69 MG Extended Release Oral Capsule [Qsymia] Qsymia 11.25-69 MG Qsymia 11.25-69 MG 02/27/2021 12:00:00 AM EDT 1.0 {capsule} active Qsymia 11.25-69 MG eCW 1 ([facility]) 325 mg 02/27/2021 12:00:00 AM EDT tablet 20 TAKE ONE TABLET BY MOUTH EVERY 12 HOURS NEEDED FOR PAIN TAKE ONE TABLET BY MOUTH EVERY 12 HOURS NEEDED FOR PAIN SOLD: 02/27/2021 [facility] 24 HR Phentermine 11.25 MG / topiramate 69 MG Extended Release Oral Capsule [Qsymia] Qsymia 11.25-69 MG Qsymia 11.25-69 MG 02/27/2021 12:00:00 AM EDT 1.0 {capsule} active Qsymia 11.25-69 MG eCW 1 ([facility]) 24 HR Phentermine 11.25 MG / topiramate 69 MG Extended Release Oral Capsule [Qsymia] Qsymia 11.25-69 MG Qsymia 11.25-69 MG 02/27/2021 12:00:00 AM EDT 1.0 {capsule} active Qsymia 11.25-69 MG eCW 1 ([facility]) 24 HR Phentermine 11.25 MG / topiramate 69 MG Extended Release Oral Capsule [Qsymia] Qsymia 11.25-69 MG Qsymia 11.25-69 MG 02/27/2021 12:00:00 AM EDT 1.0 {capsule} active Qsymia 11.25-69 MG eCW 1 ([facility]) 24 HR Phentermine 11.25 MG / topiramate 69 MG Extended Release Oral Capsule [Qsymia] Qsymia 11.25-69 MG Qsymia 11.25-69 MG 02/27/2021 12:00:00 AM EDT 1.0 {capsule} active eCW1 ([facility]) 24 HR Phentermine 11.25 MG / topiramate 69 MG Extended Release Oral Capsule [Qsymia] Qsymia 11.25-69 MG Qsymia 11.25-69 MG 02/27/2021 12:00:00 AM EDT 1.0 {capsule} active Qsymia 11.25-69 MG eCW 1 ([facility]) Acetaminophen 325 MG / Oxycodone Hydroch loride 5 MG Oral Tablet [Percocet] Percocet 5-325 MG Percocet 5-325 MG 02/20/2021 12:00:00 AM EDT 1 .0 {tablet_as_needed} active Percocet 5-32 5 MG eCW1 ([facility]) Ibuprofen 600 MG Oral Tablet Ibuprofen 600 MG 02/20/2021 12:00:00 AM E DT active Ibuprofen 600 MG eCW1 ([facility]) Acetaminophen 325 MG / Oxycodone Hydroch loride 5 MG Oral Tablet [Percocet] Percocet 5-325 MG Percocet 5-325 MG 02/20/2021 12:00:00 AM EDT 1 .0 {tablet_as_needed} active Percocet 5-32 5 MG eCW1 ([facility]) Acetaminophen 325 MG / Oxycodone Hydroch loride 5 MG Oral Tablet [Percocet] Percocet 5-325 MG Percocet 5-325 MG 02/20/2021 12:00:00 AM EDT 1 .0 {tablet_as_needed} suspended eCW 1 ([facility]) Ibuprofen 600 MG Oral Tablet Ibuprofen 600 MG 02/20/2021 12:00:00 AM E DT active Ibuprofen 600 MG eCW1 ([facility]) Acetaminophen 325 MG / Oxycodone Hydroch loride 5 MG Oral Tablet [Percocet] Percocet 5-325 MG Percocet 5-325 MG 02/20/2021 12:00:00 AM EDT 1 .0 {tablet_as_needed} active Percocet 5-32 5 MG eCW1 ([facility]) Ibuprofen 600 MG Oral Tablet Ibuprofen 600 MG 02/20/2021 12:00:00 AM E DT active eCW1 ([facility]) Acetaminophen 325 MG / Oxycodone Hydroch loride 5 MG Oral Tablet [Percocet] Percocet 5-325 MG Percocet 5-325 MG 02/20/2021 12:00:00 AM EDT 1 .0 {tablet_as_needed} active Percocet 5-32 5 MG eCW1 ([facility]) Acetaminophen 325 MG / Oxycodone Hydroch loride 5 MG Oral Tablet [Percocet] Percocet 5-325 MG Percocet 5-325 MG 02/20/2021 12:00:00 AM EDT 1 .0 {tablet_as_needed} suspended Percocet 5- 325 MG eCW1 ([facility]) Acetaminophen 325 MG / Oxycodone Hydroch loride 5 MG Oral Tablet [Percocet] Percocet 5-325 MG Percocet 5-325 MG 02/20/2021 12:00:00 AM EDT 1 .0 {tablet_as_needed} active Percocet 5-32 5 MG eCW1 ([facility]) Ibuprofen 600 MG Oral Tablet Ibuprofen 600 MG 02/20/2021 12:00:00 AM E DT active Ibuprofen 600 MG eCW1 ([facility]) Ibuprofen 600 MG Oral Tablet Ibuprofen 600 MG 02/20/2021 12:00:00 AM E DT active Ibuprofen 600 MG eCW1 ([facility]) Ibuprofen 600 MG Oral Tablet Ibuprofen 600 MG 02/20/2021 12:00:00 AM E DT active Ibuprofen 600 MG eCW1 ([facility]) Ibuprofen 600 MG Oral Tablet Ibuprofen 600 MG 02/20/2021 12:00:00 AM E DT active Ibuprofen 600 MG eCW1 ([facility]) Acetaminophen 325 MG / Oxycodone Hydroch loride 5 MG Oral Tablet [Percocet] Percocet 5-325 MG Percocet 5-325 MG 02/20/2021 12:00:00 AM EDT 1 .0 {tablet_as_needed} active Percocet 5-32 5 MG eCW1 ([facility]) Acetaminophen 325 MG / Oxycodone Hydroch loride 5 MG Oral Tablet [Percocet] Percocet 5-325 MG Percocet 5-325 MG 02/20/2021 12:00:00 AM EDT 1 .0 {tablet_as_needed} suspended eCW 1 ([facility]) Ibuprofen 600 MG Oral Tablet Ibuprofen 600 MG 02/20/2021 12:00:00 AM E DT active Ibuprofen 600 MG eCW1 ([facility]) Ibuprofen 600 MG Oral Tablet Ibuprofen 600 MG 02/20/2021 12:00:00 AM E DT active eCW1 ([facility]) 5 mg 02/16/2021 12:00:00 AM EDT tablet 20 TAKE ONE TABLET BY MOUTH EVERY 6 HOURS NEEDED FOR PAIN LEVEL 4 TO 7 MAXIMUM DAILY DOSE = 4 TAKE ONE TABLET BY MOUTH EVERY 6 HOURS NEEDED FOR PAIN LEVEL 4 TO 7 MAXIMUM DAILY DOSE = 4 SOLD: 02/16/2021 [facility] 8.6-50 mg 02/11/2021 12:00:00 AM EDT tablet 14 TAKE ONE TABLET BY MOUTH TWICE A DAY TAKE ONE TABLET BY MOUTH TWICE A DAY SOLD: 02/16/2021 [facility] 5 mg 02/10/2021 12:00:00 AM EDT tablet 20 TAKE ONE TABLET BY MOUTH EVERY 6 HOURS NEEDED FOR PAIN LEVEL 5-7 MAXIMUM DAILY DOSE = 4 TAKE ONE TABLET BY MOUTH EVERY 6 HOURS NEEDED FOR PAIN LEVEL 5-7 MAXIMUM DAILY DOSE = 4 SOLD: 02/10/2021 [facility] 81 mg 02/10/2021 12:00:00 AM EDT tablet,delayed release (DR/EC) 30 TAKE ONE TABLET BY MOUTH TWICE A DAY TAKE ONE TABLET BY MOUTH TWICE A DAY SOLD: 02/10/2021 [facility] 325 mg 02/10/2021 12:00:00 AM EDT tablet 90 TAKE 2 TABLETS BY MOUTH EVERY 4 HOURS NEEDED FOR TEMP OR PAIN LEVEL 1-4 TAKE 2 TABLETS BY MOUTH EVERY 4 HOURS NEEDED FOR TEMP OR PAIN LEVEL 1-4 SOLD: 02/10/2021 [facility] Alprazolam 0.25 MG Oral Tablet [Xanax] Xanax 0.25 MG Xanax 0 .25 MG 01/21/2021 12:00:00 AM EDT 1.0 {tablet} active Xa nax 0.25 MG eCW1 ([facility]) Alprazolam 0.25 MG Oral Tablet [Xanax] Xanax 0.25 MG Xanax 0 .25 MG 01/21/2021 12:00:00 AM EDT 1.0 {tablet} active Xa nax 0.25 MG eCW1 ([facility]) Alprazolam 0.25 MG Oral Tablet [Xanax] Xanax 0.25 MG Xanax 0 .25 MG 01/21/2021 12:00:00 AM EDT 1.0 {tablet} active eCW1 ([facility]) Alprazolam 0.25 MG Oral Tablet [Xanax] Xanax 0.25 MG Xanax 0 .25 MG 01/21/2021 12:00:00 AM EDT 1.0 {tablet} active Xa nax 0.25 MG eCW1 ([facility]) Alprazolam 0.25 MG Oral Tablet [Xanax] Xanax 0.25 MG Xanax 0 .25 MG 01/21/2021 12:00:00 AM EDT 1.0 {tablet} active Xa nax 0.25 MG eCW1 ([facility]) Alprazolam 0.25 MG Oral Tablet [Xanax] Xanax 0.25 MG Xanax 0 .25 MG 01/21/2021 12:00:00 AM EDT 1.0 {tablet} active Xa nax 0.25 MG eCW1 ([facility]) Alprazolam 0.25 MG Oral Tablet [Xanax] Xanax 0.25 MG Xanax 0 .25 MG 01/21/2021 12:00:00 AM EDT 1.0 {tablet} active eCW1 ([facility]) Alprazolam 0.25 MG Oral Tablet [Xanax] Xanax 0.25 MG Xanax 0 .25 MG 01/21/2021 12:00:00 AM EDT 1.0 {tablet} active Xa nax 0.25 MG eCW1 ([facility]) Alprazolam 0.25 MG Oral Tablet [Xanax] Xanax 0.25 MG Xanax 0 .25 MG 01/21/2021 12:00:00 AM EDT 1.0 {tablet} active Xa nax 0.25 MG eCW1 ([facility]) Alprazolam 0.25 MG Oral Tablet [Xanax] Xanax 0.25 MG Xanax 0 .25 MG 01/21/2021 12:00:00 AM EDT 1.0 {tablet} active Xa nax 0.25 MG eCW1 ([facility]) Alprazolam 0.25 MG Oral Tablet [Xanax] Xanax 0.25 MG Xanax 0 .25 MG 01/21/2021 12:00:00 AM EDT 1.0 {tablet} active Xa nax 0.25 MG eCW1 ([facility]) Acyclovir 400 MG Oral Tablet ACYCLOVIR 09/20/2020 12:00:00 AM EDT tabl et 30 TAKE ONE TABLET BY MOUTH EVERY DAY TAKE ONE TABLET BY MOUTH EVERY DAY SOLD: 09/23/2020 [facility] 24 HR Phentermine 11.25 MG / topiramate 69 MG Extended Release Oral Capsule [Qsymia] 11.25-69 mg PHENTERMINE/TOPIRAMATE 09/19/2020 12:00:00 AM EDT capsule, ER multiphase 24 hr 30 TAKE 1 CAPSULE BY MO UT ONCE DAILY MAXIMUM DAILY DOSE = 1 CAPSULE TAKE 1 CAPSULE BY MOUTH ONCE DAILY MAXIMUM DAILY DOSE = 1 CAPSULE SOLD: 03/20/2021 [facility] 24 HR Phentermine 11.25 MG / topiramate 69 MG Extended Release Oral Capsule [Qsymia] 11.25-69 mg PHENTERMINE/TOPIRAMATE 09/19/2020 12:00:00 AM EDT capsule, ER multiphase 24 hr 30 TAKE 1 CAPSULE BY IN UT ONCE DAILY MAXIMUM DAILY DOSE = 1 CAPSULE TAKE 1 CAPSULE BY MOUTH ONCE DAILY MAXIMUM DAILY DOSE = 1 CAPSULE SOLD: 11/13/2020 [facility] 24 HR Phentermine 11.25 MG / topiramate 69 MG Extended Release Oral Capsule [Qsymia] 11.25-69 mg PHENTERMINE/TOPIRAMATE 09/19/2020 12:00:00 AM EDT capsule, ER multiphase 24 hr 30 TAKE 1 CAPSULE BY [facility] ONCE DAILY MAXIMUM DAILY DOSE = 1 CAPSULE TAKE 1 CAPSULE BY MOUTH ONCE DAILY MAXIMUM DAILY DOSE = 1 CAPSULE SOLD: 01/16/2021 [facility] 24 HR Phentermine 11.25 MG / topiramate 69 MG Extended Release Oral Capsule [Qsymia] 11.25-69 mg PHENTERMINE/TOPIRAMATE 09/19/2020 12:00:00 AM EDT capsule, ER multiphase 24 hr 30 TAKE 1 CAPSULE BY [facility] ONCE DAILY MAXIMUM DAILY DOSE = 1 CAPSULE TAKE 1 CAPSULE BY MOUTH ONCE DAILY MAXIMUM DAILY DOSE = 1 CAPSULE SOLD: 09/19/2020 [facility] 24 HR Phentermine 11.25 MG / topiramate 69 MG Extended Release Oral Capsule [Qsymia] 11.25-69 mg PHENTERMINE/TOPIRAMATE 09/19/2020 12:00:00 AM EDT capsule, ER multiphase 24 hr 30 TAKE 1 CAPSULE BY [facility] ONCE DAILY MAXIMUM DAILY DOSE = 1 CAPSULE TAKE 1 CAPSULE BY MOUTH ONCE DAILY MAXIMUM DAILY DOSE = 1 CAPSULE SOLD: 12/13/2020 [facility] 24 HR Phentermine 11.25 MG / topiramate 69 MG Extended Release Oral Capsule [Qsymia] 11.25-69 mg PHENTERMINE/TOPIRAMATE 09/19/2020 12:00:00 AM EDT capsule, ER multiphase 24 hr 30 TAKE 1 CAPSULE BY [facility] ONCE DAILY MAXIMUM DAILY DOSE = 1 CAPSULE TAKE 1 CAPSULE BY MOUTH ONCE DAILY MAXIMUM DAILY DOSE = 1 CAPSULE SOLD: 02/16/2021 [facility] 11.25-69 mg 06/07/2020 12:00:00 AM EST capsule, ER multiphas e 24 hr 30 TAKE ONE CAPSULE BY MOUTH EVERY DAY MAXIMUM DAILY DOSE = 1 TAKE ONE CAPSULE BY MOUTH EVERY DAY MAXIMUM DAILY DOSE = 1 SOLD: 07/07/2020 [facility] 11.25-69 mg 06/07/2020 12:00:00 AM EST capsule, ER multiphas e 24 hr 30 TAKE ONE CAPSULE BY MOUTH EVERY DAY MAXIMUM DAILY DOSE = 1 TAKE ONE CAPSULE BY MOUTH EVERY DAY MAXIMUM DAILY DOSE = 1 SOLD: 06/08/2020 [facility] 11.25-69 mg 12/08/2019 12:00:00 AM EDT capsule, ER multiphas e 24 hr 30 TAKE ONE CAPSULE BY MOUTH EVERY DAY MAXIMUM DAILY DOSE = 1 TAKE ONE CAPSULE BY MOUTH EVERY DAY MAXIMUM DAILY DOSE = 1 SOLD: 02/11/2020 [facility] 11.25-69 mg 12/08/2019 12:00:00 AM EDT capsule, ER multiphas e 24 hr 30 TAKE ONE CAPSULE BY MOUTH EVERY DAY MAXIMUM DAILY DOSE = 1 TAKE ONE CAPSULE BY MOUTH EVERY DAY MAXIMUM DAILY DOSE = 1 SOLD: 05/09/2020 [facility] 11.25-69 mg 12/08/2019 12:00:00 AM EDT capsule, ER multiphas e 24 hr 30 TAKE ONE CAPSULE BY MOUTH EVERY DAY MAXIMUM DAILY DOSE = 1 TAKE ONE CAPSULE BY MOUTH EVERY DAY MAXIMUM DAILY DOSE = 1 SOLD: 03/12/2020 [facility] 11.25-69 mg 12/08/2019 12:00:00 AM EDT capsule, ER multiphas e 24 hr 30 TAKE ONE CAPSULE BY MOUTH EVERY DAY MAXIMUM DAILY DOSE = 1 TAKE ONE CAPSULE BY MOUTH EVERY DAY MAXIMUM DAILY DOSE = 1 SOLD: 04/10/2020 [facility] Insurance Providers Payer name Policy type / Coverage type Policy ID Covered green party ID Covered green party's relationship to [place] Policy [place] Plan Information [employer] [id number] SP [id number] [employer] LTV STEEL [id number] S [id number] [employer] [id number] SP [id number] [employer] [id number] S [id number] [employer] [id number] S [id number] [employer] LTV STEEL [id number] S [id number] SELF PAY ONLY [id number] SP [id number] [employer] [id number] S [id number] [employer] [id number] S [id number] [employer] LTV STEEL [id number] [facility] [id number] ANSI-Commercial [id number] [facility] UNAVAILABLE Problems, Conditions, and Diagnoses Code Display Name Description Problem Type Effective Dates Data Source(s) Z01.818 Encounter for other preprocedural examin ation ENCOUNTER FOR OTHER PREPROCEDURAL EXAMIN Diagnosis 04/07/2021 12:03:00 PM [facility] N20.0 Calculus of kidney CALCULUS OF KIDNEY Diagnosis 12:03:00 PM [facility] Z47.89 Encounter for other orthopedic aftercare ENCOUNTER FOR OTHER ORTHOPEDIC AFTERCARE Diagnosis 03/11/2021 08:30:00 AM [facility] Z87.891 Personal history of nicotine dependence PERSONAL HISTORY OF NICOTINE DEPENDENCE Diagnosis 03/03/2021 07:25:00 PM [facility] Z79.899 Other fpc (current) drug therapy 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 Diagnosis 03/03/2021 07:25:00 PM [facility] Z79.82 penitentiary (current) use of aspirin ADMINISTRATIVE ASSISTANT FRONT DESK (CU RRENT) USE OF ASPIRIN Diagnosis 03/03/2021 07:25:00 PM [facility] Z79.84 ADMINISTRATIVE ASSISTANT FRONT DESK (CURRENT) USE OF ORAL HYPOGLYC EMIC DRUGS ADMINISTRATIVE ASSISTANT FRONT DESK (CURRENT) USE OF ORAL HYPOGLYCEMIC DRUGS Diagnosis 03/03/2021 07:25:00 PM [facility] I10 Essential (primary) hypertension ESSENTIAL (PRIMARY) H YPERTENSION Diagnosis 03/03/2021 07:25:00 PM [facility] E03.9 Hypothyroidism, unspecified HYPOTHYROIDISM, UNSPECIFIE D Diagnosis 03/03/2021 07:25:00 PM [facility] E78.00 PURE HYPERCHOLESTEROLEMIA, UNSPECIFIED P URE HYPERCHOLESTEROLEMIA, UNSPECIFIED Diagnosis 03/03/2021 07:25:00 PM [facility] E11.9 Type 2 diabetes mellitus without complic ations TYPE 2 DIABETES MELLITUS WITHOUT COMPLICATIONS Diagnosis 03/03/2021 07:25:00 PM [facility] christie N23 Unspecified renal colic UNSPECIFIED RENAL COLIC Diagno sis 03/03/2021 07:25:00 PM [facility] R10.30 Lower abdominal pain, unspecified LOWER ABDOMINA L PAIN, UNSPECIFIED Diagnosis 03/03/2021 07:25:00 PM [facility] Z12.11 Encounter for screening for malignant ne oplasm of colon ENCOUNTER FOR SCREENING FOR MALIGNANT NEOPLASM OF COLON Diagnosis 01/29/2021 09:08:0 0 AM [facility] E07.9 Disorder of thyroid, unspecified DISORDER OF THY ROID, UNSPECIFIED Diagnosis 12/12/2020 01:00:00 PM [facility] N20.0 Kidney stone Kidney stone Problem 03/28/2021 12:00:00 A M EDT [facility] ([facility]) N20.0 [id number] Renal calculi Problem 03/04/2021 12:00:00 AM EDT [facility] ([facility]) [id number] Essential hypertension Essential hypertension Problem 12/24/2020 12:00:00 AM EDT [facility] ([facility], ) E03.9 [id number] Hypothyroidism (acquired) Problem 11/28/2020 12:00:00 AM EDT [facility] ([facility]) E66.9 [id number] Obesity (BMI 30.0-34.9) Problem 0 11/28/2020 12:00:00 AM EDT [facility] ([facility]) F41.1 [id number] ALVARO (generalized anxiety disorder) Proble m 11/28/2020 12:00:00 AM EDT [facility] ([facility]) Surgeries/Procedures Procedure Description Date Indications Data Source(s) OFFICE OUTPATIENT VISIT 15 MINUTES 12/31/2020 12:00:00 AM EDT [facility] ([facility], ) Fine Needle Aspiration Biopsy Inlcd Ultrasound Guidance 12/24/2020 12:00:00 AM EDT [facility] OFFICE OUTPATIENT NEW 30 MINUTES 12/24/2020 12:00:00 A M ED [facility] ([facility], ) Results ID Date Data Source [id number] 04/09/2021 02:50:00 PM EST [facility] Name Value Range Interpretation Code Description Data Tabitha rce(s) Supporting Document(s) [facility] ID Date Data Source [id number] 04/07/2021 01:19:00 PM EST [facility] [phone] Name Value Range Interpretation Code Description Data Tabitha rce(s) Supporting Document(s) PARTIAL THROMBOPLASTIN TIME 23.0 SECONDS 21.3-29.7 [facility] ID Date Data Source [id number] 04/07/2021 01:19:00 PM EST [facility] FA[facility] [phone] Name Value Range Interpretation Code Description Data Tabitha rce(s) Supporting Document(s) PROTHROMBIN TIME (PATIENT) 10.4 SECONDS 9.1-11.3 [facility] INR 1.02 0.87-1.06 [facility] ID Date Data Source [id number] 04/07/2021 01:07:00 PM EST [facility] FA[facility] [phone] Name Value Range Interpretation Code Description Data Tabitha rce(s) Supporting Document(s) GLUCOSE 98 mg/dL 74-106 [facility] BLOOD UREA NITROGEN 21 mg/dL 7-18 [facility] ital CREATININE 0.81 mg/dl 0.55-1.02 [facility] SODIUM 142 mmol/L 136-145 [facility] POTASSIUM 4.3 mmol/L 3.5-5.1 [facility] CHLORIDE 103 mmol/L 98-107 [facility] CO2 28 mmol/L 21-32 [facility] CALCIUM 9.5 mg/dL 8.5-10.1 [facility] ANION GAP 11.0 mmol/L 5-12 [facility] GLOMERULAR FILTRATION RATE 72 mL/min [facility] GFR IS CALCULATED IN mL/min/1.73m2 ANIL L FUNCTION: >90MILDLY DECREASED: 60-89MILDY TO MODERATELY DECREASED: 45-59 MODERATELY TO SEVERELY DECREASED: 30-44SEVERELY DECREASED: 15-29RENAL FAILURE: <15 ID Date Data Source [id number] 04/07/2021 12:51:00 PM EST [facility] FAX [phone] Name Value Range Interpretation Code Description Data Tabitha rce(s) Supporting Document(s) URINE COLOR. YELLOW [facility] URINE APPEARANCE CLEAR [facility] l URINE GLUCOSE (UA) NEGATIVE mg/dL NEGATIVE [facility] URINE BILIRUBIN NEGATIVE NEGATIVE [facility] URINE KETONE NEGATIVE mg/dL NEGATIVE [facility] SPECIFIC GRAVITY,URINE 1.020 1.005-1.030 [facility] URINE BLOOD NEGATIVE NEGATIVE [facility] PH,URINE 7.0 5.0-9.0 [facility] URINE PROTEIN NEGATIVE mg/dL NEGATIVE [facility] URINE UROBILINOGEN NORMAL(0.2-1) mg/dL 0-1 [facility] URINE NITRATE NEGATIVE NEGATIVE [facility] URINE LEUKOCYTE ESTERASE NEGATIVE NEGATIVE [facility] ID Date Data Source [id number] 04/07/2021 12:42:00 PM EST [facility] FAX [phone] Name Value Range Interpretation Code Description Data Tabitha rce(s) Supporting Document(s) WHITE BLOOD COUNT 6.3 K/mm3 4.0-10.0 [facility] RED BLOOD COUNT 4.06 M/mm3 4.00-5.50 [facility] HEMOGLOBIN 12.4 gm/dL 12.0-16.0 [facility] HEMATOCRIT 37.5 % 36.0-48.8 [facility] MEAN CELL VOLUME 92.4 fl 80-96 [facility] MEAN CORPUSCULAR HEMOGLOBIN 30.5 pg 27.0-31.0 [facility] MEAN CORPUSCULAR HGB CONC 33.1 g/dl 32.0-36.0 [facility] RED CELL DISTRIBUTION WIDTH 12.6 % 10.0-14.5 [facility] PLATELET COUNT 305 K/mm3 172-450 [facility] ID Date Data Source URINE CULTURE 03/28/2021 12:00:00 AM EDT eC ([facility]) Name Value Range Interpretation Code Description Data Tabitha rce(s) Supporting Document(s) eCW1 ([facility]ly [facility]) ID Date Data Source UA URINALYSIS 03/28/2021 12:00:00 AM EDT eCW1 ([facility]) Name Value Range Interpretation Code Description Data Tabitha rce(s) Supporting Document(s) eCW1 ([facility]) ID Date Data Source [id number] 03/21/2021 12:00:00 AM EDT [facility] Name Value Range Interpretation Code Description Data Tabitha rce(s) Supporting Document(s) SARS-COV-2 Negative [facility] This lab was ordered by [facility] and re ported by [facility]. ID Date Data Source [id number] 03/03/2021 11:07:00 PM EDT [facility] Patient: SIMEON RAYMOND Observation Re port - Phys[facility].VisitID: [id number] [place] [address] [phone], FRegistration Date/Time: 03/03/2021 18:16 Weight:81.6 kg (S). Height/Length:65 inches (S). BMI:30 PAST HISTORYProblems:Ankle Fracture.Diabetes Mellitus.Cellulitis.Hypercholesterolemia.Hypothyroidism.Hypertension. Addit ional Surgeries:Dental Surgery.Knee Surgery.Right ankle repair.Right foot reconstruction. Medications:Nitrofurantoin Oral 100 mg, 2x a day, last dose today.Pyridium Oral (Tablet 200 mg) 1 tablet, 3x a day, last dose today.Qysmia, daily, last dose today.Aspirin Oral (Tablet Chewable 81 mg) 2 tablets, daily, last dose today.Atorvastatin Calcium Oral 40 mg, daily every PM, last dose last night.Bystolic Oral (Tablet 10 mg) 1 tablet, daily, last dose yesterday.MetFORMIN HCl Oral unk, daily, last dose today.Synthroid Oral 50 mcg, daily, last dose today. Allergies:Penicillins.(itching)Sulfa (Sulfonamide Antibiotics).(itching). FAMILY HISTORYMother: Recurrent urinary tract infection. INSTRUCTIONSYour Current Medications: Your current home medications have been reviewed. CONTINUE TAKING THE FOLLOWING MEDICATIONS:Aspirin Oral : Tablet Chewable 81 mg, 2 tablets daily, Last: today. Atorvastatin Calcium Oral : 40 mg daily, Last: last night, every PM. Bystolic Oral : Tablet 10 mg, 1 tablet daily, Last: yesterday. MetFORMIN HCl Oral : unk daily, Last: today. Nitrofurantoin Oral : 100 mg 2x a day, Last: today. Pyridium Oral : Tablet 200 mg, 1 tablet 3x a day, Last: today. Qysmia* : daily, Last: today. Synthroid Oral : 50 mcg daily, Last: today. (Electronically signed by Sabrina Shah 03/03/2021 22:58) Name Value Range Interpretation Code Description Data Tabitha rce(s) Supporting Document(s) ID Date Data Source [id number] 03/03/2021 08:34:00 PM [facility] DATE OF EXAMINATION: 03/03/2021 19:14 ED T ABD/PEL NO CONTRAST HISTORY: Lower abdominal pain TECHNIQUE: This CT exam was performed using the following dose reduction techniques:automated exposure control, adjustment of mA and/or kV according to thepatient's size, and use of iterative reconstruction technique. Standard contiguous axial spiral imaging was obtained from the dome of thediaphragms through the symphysis pubis without oral contrast and withoutintravenous contrast administration and with coronal reformatting. FINDINGS: Lung bases are clear. Liver, spleen, pancreas, gallbladder, and bilat eral adrenal glands are normalfor noncontrast evaluation. Right kidney includes multiple nonobstructing calculi up to 3 mm withoutperinephric stranding or hydronephrosis. Left kidney includes multiplenonobstructing calculi up to 6 mm along with hypodense and isodense lesionsmeasuring 4.5 cm and 2.4 cm respectively without perinephric stranding orhydronephrosis. The enteric system is without obstruction or acute inflammatory process. Normalterminal ileum and appendix are identified in the right lower quadrant. Sigmoiddiverticula noted without acute diverticulitis. Pelvis demonstrates normal bladder and age- appropriate uterus/adnexa. No ascites. No free air. No adenopathy. Abdominal aorta without aneurysm.Musculoskeletal structures demonstrate degenerative changes without acuteosseous abnormality. Impression:1. No acute abdominopelvic pathology appreciated.2. Bilateral nonobstructing nephroliths along with left- sided lesions likelyrepresenting simple and complex cysts although follow-up ultrasound examinationfor confirmation is recommended to exclude mass.3. No ascites. No focal inflammatory stranding. No adenopathy. No free air. Electronically signed in [id number] by: Eulogio Christiansen M.D. 03/03/2021 20:28 EDT Name Value Range Interpretation Code Description Data Tabitha rce(s) Supporting Document(s) ID Date Data Source [id number] 03/03/2021 08:06:00 PM EDT [facility] TSYSORDER [id number] Name Value Range Interpretation Code Description Data Tabitha rce(s) Supporting Document(s) GLUCOSE 103 mg/dL 74-106 [facility] BLOOD UREA NITROGEN 19 mg/dL 7-18 H [facility] CREATININE 0.85 mg/dL 0.6-1.0 [facility] SODIUM 143 mmol/L 136-145 [facility] POTASSIUM 3.8 mmol/L 3.5-5.1 [facility] CHLORIDE 105 mmol/L 98-107 [facility] CO2 27 mmol/L 21-32 [facility] CALCIUM 9.8 mg/dL 8.5-10.1 [facility] ANION GAP 11.0 mmol/L 5-12 [facility] GLOMERULAR FILTRATION RATE 68 mL/min [facility] GFR IS CALCULATED IN mL/min/1.73m2 ANIL L FUNCTION: >90MILDLY DECREASED: 60-89MILDY TO MODERATELY DECREASED: 45-59 MODERATELY TO SEVERELY DECREASED: 30-44SEVERELY DECREASED: 15-29RENAL FAILURE: <15 AST 36 U/L 15-37 [facility] ALT 81 U/L 12-78 H [facility] ALKALINE PHOSPHATASE 107 U/L 46-116 [facility] pital TOTAL BILIRUBIN 0.8 mg/dL 0.2-1.0 [facility] TOTAL PROTEIN 7.9 g/dl 6.4-8.2 [facility] ALBUMIN 4.1 gm/dL 3.4-5.0 [facility] ID Date Data Source [id number] 03/03/2021 08:06:00 PM EDT [facility] l TSYSORDER [id number] Name Value Range Interpretation Code Description Data Tabitha rce(s) Supporting Document(s) PARTIAL THROMBOPLASTIN TIME 22.9 SECONDS 21.2-27.3 [facility] ID Date Data Source [id number] 03/03/2021 08:06:00 PM EDT [facility] l TSYSORDER [id number] Name Value Range Interpretation Code Description Data Tabitha rce(s) Supporting Document(s) MAGNESIUM 1.8 mg/dL 1.8-2.4 [facility] ID Date Data Source [id number] 03/03/2021 08:06:00 PM EDT [facility] l TSYSORDER [id number] Name Value Range Interpretation Code Description Data Tabitha rce(s) Supporting Document(s) LIPASE 65 U/L 73-393 L [facility] ID Date Data Source [id number] 03/03/2021 08:06:00 PM EDT [facility] TSYSORDER [id number] Name Value Range Interpretation Code Description Data Tabitha rce(s) Supporting Document(s) PROTHROMBIN TIME (PATIENT) 10.3 SECONDS 9.1-11.6 [facility] INR 0.99 0.87-1.06 [facility] ID Date Data Source [id number] 03/03/2021 07:48:00 PM EDT [facility] T[facility] [id number] Name Value Range Interpretation Code Description Data [facility] rce(s) Supporting Document(s) WHITE BLOOD COUNT 6.5 K/mm3 4.0-10.0 [facility] al RED BLOOD COUNT 3.91 M/mm3 4.00-5.50 L [facility] HEMOGLOBIN 12.1 gm/dL 12.0-16.0 [facility] HEMATOCRIT 35.8 % 36.0-48.8 [facility] MEAN CELL VOLUME 91.6 fl 80-96 [facility] MEAN CORPUSCULAR HEMOGLOBIN 30.9 pg 27.0-31.0 [facility] MEAN CORPUSCULAR HGB CONC 33.8 g/dl 32.0-36.0 [facility] RED CELL DISTRIBUTION WIDTH 12.4 % 10.0-14.5 [facility] PLATELET COUNT 312 K/mm3 172-450 [facility] MEAN PLATELET VOLUME 9.4 fl 9.0-13.0 [facility] pital GRAN % 59.3 % 50-80.0 [facility] IG% 0.2 % 0.0-0.2 [facility] LYMPH % 29.7 % 25.0-50.0 [facility] MONO % 8.0 % 2.0-10.0 [facility] EOS % 2.6 % 0-5.0 [facility] BASO % 0.2 % 0.0-2.0 [facility] GRAN # 3.9 K/mm3 2.0-8.00 [facility] IG# 0.0 K/mm3 0.0-0.2 [facility] LYMPH # 1.9 K/mm3 1.0-5.0 [facility] MONO # 0.5 K/mm3 0.10-1.20 [facility] EOS # 0.2 K/mm3 0.0-0.5 [facility] BASO # 0.0 K/mm3 0.0-0.2 [facility] ID Date Data Source [id number] 03/03/2021 07:32:00 PM EDT [facility] TSYSORDER [id number] Name Value Range Interpretation Code Description Data Tabitha rce(s) Supporting Document(s) URINE RBC 0-2 /hpf 0-3 [facility] URINE WBC 3-5 /hpf 0-5 [facility] URINE EPITHELIAL CELLS 1+ /hpf 0 [facility] URINE BACTERIA 1+ NONE SEEN [facility] URINE OVAL FAT BODIES 1+ [facility] ID Date Data Source [id number] 03/03/2021 07:31:00 PM EDT [facility] TSYSORDER [id number] Name Value Range Interpretation Code Description Data Tabitha rce(s) Supporting Document(s) URINE COLOR. [facility] URINE TEST NOT PERFORMED DUE TO COLOR IN TERFERENCE.SEE URINE MICROSCOPY. URINE APPEARANCE SLIGHTY CLOUDY [facility] ID Date Data Source [id number] 02/16/2021 11:50:00 AM EDT [facility] ([facility]) Name Value Range Interpretation Code Description Data Tabitha rce(s) Supporting Document(s) Glucose [Mass/volume] in Capillary blood by Glucometer 142 mg/dL 80-115 Above high normal [facility] ([facility]) ID Date Data Source [id number] 02/16/2021 05:13:00 AM EDT [facility] ([facility]) Name Value Range Interpretation Code Description Data Tabitha rce(s) Supporting Document(s) Magnesium [Mass/volume] in Serum or Plasma 1.7 mg/dL 1.8-2.4 [place]o w low normal [facility] ([facility]) ID Date Data Source [id number] 02/16/2021 05:13:00 AM EDT [facility] ([facility]) Name Value Range Interpretation Code Description Data Tabitha rce(s) Supporting Document(s) Glucose, Fasting 155 mg/dL 70-100 Above high normal [facility] ([facility]) Blood Urea Nitrogen 13 mg/dL 7-18 Normal (applies to non-nume danuta results) [facility] ([facility]) Creatinine For GFR 0.64 mg/dL 0.55-1.30 Normal (applies to non -numeric results) [facility] ([facility]) Glomerular Filtration Rate Laboratory test result Normal (applies to non- numeric results) [facility]) <content>Units are mL/min/1.73 m2</content>
<content></content>
<content>Chronic Kidney Disease Staging per NKF:</content>
<content></content>
<content>Stage I & II GFR >=60 Normal to Mildly Decreased</content>
<content>Stage III GFR 30- 59 Moderately Decreased</content>
<content>Stage IV GFR 15-29 Severely Decreased</content>
<content>Stage V GFR <15 Very Little GFR Left</content>
<content>ESRD GFR <15 on CSW</content>
<content></content> Sodium Level 138 meq/L 136-145 Normal (applies to non-numeric res ults) [facility] ([facility]) Potassium Serum 4.3 meq/L 3.5-5.1 Normal (applies to non-numeric results) [facility] ([facility]) Chloride Level 105 meq/L 98-107 Normal (applies to non-numeric r esults) [facility] ([facility]) Carbon Dioxide Level 24 meq/L 21-32 Normal (applies to non-num terry results) [facility] ([facility]) Anion Gap 9 meq/L 8-16 Normal (applies to non-numeric resul ts) [facility]) Calcium Level 8.9 mg/dL 8.8-10.2 Normal (applies to non-numeric re sults) [facility]) ID Date Data Source [id number] 02/16/2021 05:13:00 AM EDT [facility]) Name Value Range Interpretation Code Description Data Tabitha rce(s) Supporting Document(s) Red Blood Count 3.89 10 4.00-5.40 Below low normal [facility] ([facility], ) Hemoglobin 12.1 g/dL 12.0-15.5 Normal (applies to non-numeric resul ts) [facility] ([facility]) White Blood Count 8.4 10 4.0-10.0 Normal (applies to non-numeri c results) [facility] ([facility]) Mean Corpuscular Volume 95.1 fl 80.0-96.0 Normal ( applies to non-numeric results) [facility] ([facility]) Hematocrit 37.0 % 36.0-47.0 Normal (applies to non-numeric resul ts) [facility]) Red Cell Distribution Width 12.6 % 11.5-14.5 Norm al (applies to non-numeric results) [facility]) Mean Corpuscular HGB Conc 32.7 g/dL 32.0-36.5 Normal (applies to non-numeric results) [facility] ([facility]) Mean Corpuscular Hemoglobin 31.1 pg 27.0-33.0 Norm al (applies to non-numeric results) [facility] ([facility]) Lymph % 9.1 % 24.0-44.0 Below low normal [facility] ( [facility]) Neutrophils % 87.1 % 36.0-66.0 Above high normal [facility] ([facility]) Platelet Count, Automated 281 10 150-450 Normal (applies to non-numeric results) [facility]) Baso % 0.1 % 0.0-1.0 Normal (applies to non-numeric resul ts) [facility] ([facility]) [place] % 3.2 % 2.0-8.0 Normal (applies to non-numeric resul ts) [facility] Eos % 0.0 % 0.0-3.0 Normal (applies to non-numeric resul ts) [facility]) Immature Granulocyte % 0.5 % 0-3.0 Normal (applies to non-n umeric results) [facility]) Neutrophils # 7.3 10 1.5-8.5 Normal (applies to non-numeric re sults) [facility] ([facility]) Nucleated Red Blood Cell % 0.0 % 0-0 Normal (applies to n on-numeric results) [facility] ([facility]) [place] # 0.3 10 0.0-0.8 Normal (applies to non-numeric resul ts) [facility] ([facility]) Lymph # 0.8 10 1.5-5.0 Below low normal [facility] ( [facility]) Baso # 0.0 10 0.0-0.2 Normal (applies to non-numeric resul ts) [facility] ([facility]) Eos # 0.0 10 0.0-0.5 Normal (applies to non-numeric resul ts) [facility] ([facility]) ID Date Data Source [id number] 02/16/2021 04:16:00 AM EDT [facility] ([facility]) Name Value Range Interpretation Code Description Data Tabitha rce(s) Supporting Document(s) Glucose [Mass/volume] in Capillary blood by Glucometer 177 mg/dL 80-115 Above high normal [facility] ([facility]) ID Date Data Source [id number] 02/15/2021 08:38:00 AM EDT [facility] ([facility]) Name Value Range Interpretation Code Description Data Tabitha rce(s) Supporting Document(s) Coronavirus 2019 Nasopharygeal Laboratory test result [facility] ([facility]) Comments: PREOP SCREENING By: FLOOR NURSE Time: 0641 Laboratory test finding (navigational concept) Laboratory test r esult Normal (applies to non-numeric results) [facility] ([facility] ) A false negative result may occur if a s pecimen is improperly collected, transported or handled. False [...] pathogens. DISCLAIMER: Testing was performed using the [employer] SARS-CoV-2 test. This test was developed and its performance characteristics determined by [employer]. This test has not been FDA cleared [...] the authorization is terminated or revoked sooner. ID Date Data Source [id number] 02/15/2021 08:38:00 AM EDT [facility] Name Value Range Interpretation Code Description Data Tabitha rce(s) Supporting Document(s) SARS coronavirus 2 RNA [Presence] in Res piratory specimen by DINESH with probe detection NEGATIVE [facility] This lab was ordered by [facility] a nd reported by [facility]. ID Date Data Source [id number] 02/09/2021 04:09:00 PM EDT [facility] Name Value Range Interpretation Code Description Data Tabitha rce(s) Supporting Document(s) SARS coronavirus 2 RNA [Presence] in Res piratory specimen by DINESH with probe detection NEGATIVE [facility] This lab was ordered by [facility] a nd reported by [facility]. ID Date Data Source [id number] 01/15/2021 05:30:00 PM EDT [facility] Name Value Range Interpretation Code Description Data Tabitha rce(s) Supporting Document(s) SARS coronavirus 2 RNA [Presence] in Res piratory specimen by DINESH with probe detection anterior nasal swabs [facility]. ID Date Data Source [id number] 01/15/2021 01:30:00 PM EDT [facility] Name Value Range Interpretation Code Description Data Tabitha rce(s) Supporting Document(s) SARS-CoV-2 NEGATIVE [facility] This lab was ordered by [facility] and reported by [facility]. ID Date Data Source [id number] 01/09/2021 03:45:00 PM EDT [facility] Name Value Range Interpretation Code Description Data Tabitha rce(s) Supporting Document(s) SARS coronavirus 2 RNA [Presence] in Res piratory specimen by DINESH with probe detection anterior nasal swabs [facility] This lab was ordered by [facility] and re ported by [facility]. ID Date Data Source [id number] 01/09/2021 11:45:00 AM EDT [facility] Name Value Range Interpretation Code Description Data Tabitha rce(s) Supporting Document(s) SARS-CoV-2 NEGATIVE [facility] This lab was ordered by [facility] and reported by [facility]. ID Date Data Source [id number] 12/24/2020 04:04:00 PM EDT [facility] ([facility]) Name Value Range Interpretation Code Description Data Tabitha rce(s) Supporting Document(s) Microscopic observation [Identifier] in Unspecified specimen by Non- gynecological cytology method Laboratory test result [facility] ([facility]) SPECIMEN: FNA Right lobe thyr oid nodule Cytolyt (light pink) and prepared slides received SPECIMEN ADEQUACY: Satisfactory for evaluation CATEGORIZATION: Benign DESCRIPTIONS: Groups of follicular cells noted, some exhibiting hurthle cell changes. The background consists of scattered macrophages, lymphocytes, and blood elements. COMMENTS: 12/25/2020 - 825 Signed NUNU DELAROSA(ASCP) 12/25/2020 07 (Prelim) Signed TESHA HANNON MD 12/25/2020 0852 ID Date Data Source [id number] 12/12/2020 01:38:00 PM EDT [facility] DATE OF EXAMINATION: 12/12/2020 13:00 EDT THYROID COMPARED TO:No priors HISTORY: Thyroid mass Real-time ultrasound imaging was performed utilizing B-mode/ventura scale and colorDoppler imaging where applicable. FINDINGS: There are 2 very large complex masses of right thyroid lobe one measuring 3.6 x3 cm and a second measuring 4 x 3 cm. Also seen is a 0.7 cm nodule in the upperpole of left thyroid lobe. IMPRESSION: 2 complex dominant mass is of right thyroid lobe. Given the complex appearanceneoplastic process is not excluded. Surgical consult/tissue sampling is stronglyrecommended. Electronically signed in PS360 by: Greta Smith M.D. 12/12/2020 13:32 EDT Name Value Range Interpretation Code Description Data Tabitha rce(s) Supporting Document(s) ID Date Data Source [id number] 12/05/2020 10:43:00 AM EDT [facility] Name Value Range Interpretation Code Description Data Tabitha rce(s) Supporting Document(s) SARS-CoV-2 (COVID-19) RNA [Presence] in Respiratory specimen by DINESH with probe detection Not Detected [facility] This lab was ordered by [facility] and reported by [employer]. ID Date Data Source HSV TYPE 1&2 IgG SPECIFIC 11/28/2020 12:00:00 AM EDT eCW1 ([facility]) Name Value Range Interpretation Code Description Data Tabitha rce(s) Supporting Document(s) 16.70 0.00-0.90 HSV TYPE I IgG SPECIFIC e CW1 ([facility]) 18.60 0.00-0.90 HSV TYPE II IgG SPECIFIC eCW1 ([facility]) ID Date Data Source LIPID PANEL (CARDIAC RISK) 11/28/2020 12:00:00 AM EDT eCW1 ( [facility]) Name Value Range Interpretation Code Description Data Tabitha rce(s) Supporting Document(s) Triglyceride [Mass/volume] in Serum or Plasma by calculation 233 <150 TRIGLYCERIDES LEVEL eCW ([facility]) Cholesterol [Moles/volume] in Serum or Plasma 212 <200 CHOLESTEROL LEVEL eCW1 ([facility]) Cholesterol in HDL [Moles/volume] in Serum or Plasma 61 >40 HDL CHOLESTEROL eCW1 ([facility]) Cholesterol in LDL [Mass/volume] in Serum or Plasma by calculation 104 <100 LDL CHOLESTEROL eCW1 ([facility]) 151 NON-HDL-C eCW1 ([facility]) 3.475 <5 CHOLESTEROL RISK RATIO eCW1 ([facility]) ID Date Data Source [id number] 11/28/2020 12:00:00 AM EDT eCW1 ([facility]) Name Value Range Interpretation Code Description Data Tabitha rce(s) Supporting Document(s) Hemoglobin A1c/Hemoglobin.total in Blood 5.4 HEMOGLOBIN A1c eCW1 ([facility]) ID Date Data Source FREE T4 & TSH PANEL 11/28/2020 12:00:00 AM EDT eCW1 ([facility]) Name Value Range Interpretation Code Description Data Tabitha rce(s) Supporting Document(s) 1.410 0.358-3.740 THYROID STIMULATING HORM ONE eCW1 ([facility]) 0.92 0.76-1.46 FREE T4 eCW1 ([facility]) ID Date Data Source Comprehensive Metabolic Profile (CMP) 11/28/2020 12:00:00 AM EDT eCW1 ([facility]) Name Value Range Interpretation Code Description Data Tabitha rce(s) Supporting Document(s) 110 70-100 GLUCOSE, FASTING eCW1 ([facility]) 19 7-18 BLOOD UREA NITROGEN eCW1 ([facility]) 0.76 0.55-1.30 CREATININE FOR GFR eCW1 (Replaced by [facility]) > 60.0 >45 GLOMERULAR FILTRATION RATE eCW 1 ([facility]) 143 136-145 SODIUM LEVEL eCW1 ([facility]) 4.4 3.5-5.1 POTASSIUM SERUM eCW1 ([facility]) 108 98-107 CHLORIDE LEVEL eCW1 ([facility]) 25 21-32 CARBON DIOXIDE LEVEL eCW1 ([facility]) 9.6 8.8-10.2 CALCIUM LEVEL eCW1 ([facility]) 25 7-37 AST/SGOT eCW1 ([facility]) 52 12-78 ALT/SGPT eCW1 ([facility]) 74 45-117 ALKALINE PHOSPHATASE eCW1 ([facility]) 0.8 0.2-1.0 BILIRUBIN,TOTAL eCW1 ([facility]) 7.4 6.4-8.2 TOTAL PROTEIN eCW1 ([facility]) 4.1 3.2-5.2 ALBUMIN eCW1 ([facility]) 1.2 1.2-2.2 ALBUMIN/GLOBULIN RATIO eCW1 ([facility]) ID Date Data Source CBC with Differential 11/28/2020 12:00:00 AM EDT eCW1 (Replaced by [facility]) Name Value Range Interpretation Code Description Data Tabitha rce(s) Supporting Document(s) 5.9 4.0-10.0 WHITE BLOOD COUNT eCW1 ([facility]) 4.27 4.00-5.40 RED BLOOD COUNT eCW1 ([facility]) 13.1 12.0-15.5 HEMOGLOBIN eCW1 ([facility]) 40.7 36.0-47.0 HEMATOCRIT eCW1 ([facility]) 95.3 80.0-96.0 MEAN CORPUSCULAR VOLUME e CW1 ([facility]) 30.7 27.0-33.0 MEAN CORPUSCULAR HEMOGLOB IN eCW1 ([facility]) 32.2 32.0-36.5 MEAN CORPUSCULAR HGB CONC eCW1 ([facility]) 271 150-450 PLATELET COUNT, AUTOMATED eCW1 ([facility]) 12.9 11.5-14.5 RED CELL DISTRIBUTION WID TH eCW1 ([facility]) 50.6 36.0-66.0 NEUTROPHILS % eCW1 ([facility]) 37.5 24.0-44.0 LYMPH % eCW1 ([facility]) 9.5 2.0-8.0 MONO % eCW1 ([facility]) 2.0 0.0-3.0 EOS % eCW1 ([facility]) 0.2 0.0-1.0 BASO % eCW1 ([facility]) 2.2 1.5-5.0 LYMPH # eCW1 ([facility] [facility]) 3.0 1.5-8.5 NEUTROPHILS # eCW1 ([facility]) 0.6 0.0-0.8 MONO # eCW1 ([facility]) 0.1 0.0-0.5 EOS # eCW1 ([facility]) 0.0 0.0-0.2 BASO # eCW1 ([facility]) Procedure Social History Code Duration Value Status Description Data Source(s ) Smoking 03/28/2021 12:00:00 AM EDT Never Smoker completed Never S moker eCW1 ([facility]) Smoking 03/28/2021 12:00:00 AM EDT Never Smoker completed Never S moker eCW1 ([facility]) Smoking 03/28/2021 12:00:00 AM EDT Never Smoker completed Never S moker eCW1 ([facility]) Smoking 02/27/2021 12:00:00 AM EDT Never Smoker completed Never S moker eCW1 ([facility]) Smoking 02/27/2021 12:00:00 AM EDT Never Smoker completed Never S moker eCW1 ([facility]) Smoking 02/27/2021 12:00:00 AM EDT Never Smoker completed Never S moker eCW1 ([facility]) Smoking 02/27/2021 12:00:00 AM EDT Never Smoker completed Never S moker eCW1 ([facility]) Smoking 02/27/2021 12:00:00 AM EDT Never Smoker completed Never S moker eCW1 ([facility]) Smoking 01/29/2021 12:00:00 AM EDT Former Smoker completed Former Smoker eCW1 ([facility]) Smoking 12/30/2020 12:00:00 AM EDT Never Smoker completed Never S moker eCW1 ([facility]) Smoking 12/30/2020 12:00:00 AM EDT Never Smoker completed Never S moker eCW1 ([facility]) Smoking 12/30/2020 12:00:00 AM EDT Never Smoker completed Never S moker eCW1 ([facility]) Smoking 12/30/2020 12:00:00 AM EDT Never Smoker completed Never S moker eCW1 ([facility]) Smoking 12/30/2020 12:00:00 AM EDT Never Smoker completed Never S moker eCW1 ([facility]) Smoking 11/28/2020 12:00:00 AM EDT Never Smoker completed Never S moker eCW1 ([facility]) Smoking 11/28/2020 12:00:00 AM EDT Never Smoker completed Never S moker eCW1 ([facility]) Smoking 11/28/2020 12:00:00 AM EDT Never Smoker completed Never S moker eCW1 ([facility]) Vital Signs ID Date Data Source UNK Name Value Range Interpretation Code Description Data Source(s) Systolic blood pressure 128 mm[Hg] 128 mm[Hg] e CW1 ([facility]) Body weight 190 [lb_av] 190 [lb_av] eCW1 (Replaced by [facility]) Diastolic blood pressure 68 mm[Hg] 68 mm[Hg] eCW1 ([facility]) Body height 65 [in_i] 65 [in_i] eCW1 ([facility]) Heart rate 86 /min 86 /min eCW1 ([facility]) Body mass index (BMI) [Ratio] 31.61 kg/m2 31.61 kg/m2 eCW1 ([facility]) Respiratory rate 18 /min 18 /min eCW1 ([facility]) Body temperature 97.4 [degF] 97.4 [degF] eCW1 ( [facility]) Body temperature 97.6 [degF] 97.6 [degF] MEDENT ([facility], ) Body temperature 96.9 [degF] 96.9 [degF] MEDENT ([facility], ) Body height 66 [in_i] 66 [in_i] eCW1 ([facility] [place]) Body weight 194.2 [lb_av] 194.2 [lb_av] eCW1 ([facility]) Body mass index (BMI) [Ratio] 31.34 kg/m2 31.34 kg/m2 eCW1 ([facility]) Body temperature 97.9 [degF] 97.9 [degF] eCW1 ( [facility]) Heart rate 71 /min 71 /min eCW1 ([facility]) Respiratory rate 17 /min 17 /min eCW1 ([facility]) Oxygen saturation in Arterial blood by Pulse oximetry 97 % 97 % eCW1 ([facility]) Body height 65 [in_i] 65 [in_i] [facility] 5'5" Body weight 195.00 [lb_av] 195.00 [lb_av] MEDEN T ([facility]) Body mass index (BMI) [Ratio] 32.4 kg/m2 32.4 k g/m2 [facility] ([facility]) [place] body weight 125 [lb_av] 125 [lb_av] MEDEN T ([facility]) Body weight 88.452 kg 88.452 kg [facility] ([facility]) Body surface area Derived from formula 1.96 m2 1.96 m2 [facility] ([facility]) Body weight 190.8 [lb_av] 190.8 [lb_av] eCW1 ([facility]) Body weight 86.55 kg 86.55 kg eCW1 ([facility]) Body height 65 [in_i] 65 [in_i] eCW1 ([facility]) Body mass index (BMI) [Ratio] 31.75 kg/m2 31.75 kg/m2 eCW1 ([facility]) Heart rate 70 /min 70 /min eCW1 ([facility]) Respiratory rate 18 /min 18 /min eCW1 ([facility]) Body temperature 97.4 [degF] 97.4 [degF] eCW1 ( [facility]) Systolic blood pressure 132 mm[Hg] 132 mm[Hg] e CW1 ([facility]) Diastolic blood pressure 72 mm[Hg] 72 mm[Hg] eCW1 ([facility]) Body surface area Derived from formula 1.96 m2 1.96 m2 [facility] ([facility]) Body height 65 [in_i] 65 [in_i] [facility] ([facility]) 5'5" Body weight 195.00 [lb_av] 195.00 [lb_av] MEDEN T ([facility]) Body mass index (BMI) [Ratio] 32.4 kg/m2 32.4 k g/m2 [facility] ([facility]) [place] body weight 125 [lb_av] 125 [lb_av] MEDEN T ([facility]) Body weight 88.452 kg 88.452 kg [facility] ([facility]) Body weight 190.8 [lb_av] 190.8 [lb_av] eCW1 ([facility]) Body height 65 [in_i] 65 [in_i] eCW1 ([facility]) Body mass index (BMI) [Ratio] 31.75 kg/m2 31.75 kg/m2 eCW1 ([facility]) Heart rate 72 /min 72 /min eCW1 ([facility]) Respiratory rate 20 /min 20 /min eCW1 ([facility]) Body temperature 97.5 [degF] 97.5 [degF] eCW1 ( [facility]) Systolic blood pressure 124 mm[Hg] 124 mm[Hg] e CW1 ([facility]) Diastolic blood pressure 76 mm[Hg] 76 mm[Hg] eCW1 ([facility]) Patient Treatment Plan of Care Planned Activity Planned Date Details Description Data Source (s) Acetaminophen 325 MG / Hydrocodone Bitartrate 5 MG Ora l Tablet 03/14/2021 12:00:00 AM EDT eCW1 ([facility]) Tamsulosin hydrochloride 0.4 MG Oral Capsule 03/04/2021 12:00:00 AM EDT eCW1 ([facility]) Acetaminophen 325 MG / Hydrocodone Bitartrate 5 MG Ora l Tablet 03/04/2021 12:00:00 AM EDT eCW1 ([facility]) Tamsulosin hydrochloride 0.4 MG Oral Capsule 03/04/2021 12:00:00 AM EDT eCW1 ([facility]) 24 HR Phentermine 11.25 MG / topiramate 69 MG Extended Release Oral Capsule [Qsymia] 02/27/2021 12:00:00 AM EDT eCW1 ([facility]) 24 HR Phentermine 11.25 MG / topiramate 69 MG Extended Release Oral Capsule [Qsymia] 02/27/2021 12:00:00 AM EDT eCW1 ([facility]) 24 HR Phentermine 11.25 MG / topiramate 69 MG Extended Release Oral Capsule [Qsymia] 02/27/2021 12:00:00 AM EDT eCW1 ([facility]) 24 HR Phentermine 11.25 MG / topiramate 69 MG Extended Release Oral Capsule [Qsymia] 02/27/2021 12:00:00 AM EDT eCW1 ([facility]) 24 HR Phentermine 11.25 MG / topiramate 69 MG Extended Release Oral Capsule [Qsymia] 02/27/2021 12:00:00 AM EDT eCW1 ([facility]) Acetaminophen 325 MG / Oxycodone Hydrochloride 5 MG Or al Tablet [Percocet] 02/20/2021 12:00:00 AM EDT eCW1 ([facility]) Ibuprofen 600 MG Oral Tablet 02/20/2021 12:00:00 AM EDT eCW1 ([facility]) Alprazolam 0.25 MG Oral Tablet [Xanax] 01/21/2021 12:00:00 AM EDT eCW1 ([facility]) Alprazolam 0.25 MG Oral Tablet [Xanax] 01/21/2021 12:00:00 AM EDT eCW1 ([facility]) Alprazolam 0.25 MG Oral Tablet [Xanax] 01/21/2021 12:00:00 AM EDT eCW1 ([facility])
[2021-04-10] MEDS ORDERED: GLYCOPYRROLATE INJ 0.2 MG/ML 2 ML VIAL As Ordered ONE (07:50)
[2021-04-10] MEDS ORDERED: MIDAZOLAM INJ 2MG/2ML VIAL (J2250 PER 1MG) As Ordered ONE (07:50)
[2021-04-10] MEDS ORDERED: fentaNYL 100 MCG/2 ML INJECTION (J3010) As Ordered ONE (07:50)
[2021-04-10] MEDS ORDERED: ONDANSETRON 4MG/2ML VIAL As Ordered ONE (07:50)
[2021-04-10] MEDS ORDERED: LIDOCAINE 2% 100MG/5ML SDV (FOR ANES.) As Ordered ONE (07:50)
[2021-04-10] MEDS ORDERED: propofoL 200 MG/20 ML VIAL As Ordered ONE (07:50)
[2021-04-10] MEDS ORDERED: KETAMINE HCL 200 MG/20 ML VIAL As Ordered ONE (07:50)
[2021-04-10] MEDS ORDERED: OXYC1TAB23 PO (08:43)
[2021-04-10] MEDS ORDERED: FLOM0.4C39 PO (08:43)
--- NOTE | 2021-04-10 09:08 | REP ---
INDICATION: KUB BEFORE [facility] PT NEEDS TO GO TO [facility] COMPARISON: None. TECHNIQUE: Supine view of the abdomen and pelvis. FINDINGS: Few small calcifications up to 3.5 mm overlie the left kidney. Further evaluation of the urinary tract system is limited due to overlying bowel gas. Calcifications within the pelvis likely represent phleboliths. Bowel gas pattern is nonspecific. No organomegaly. No foreign body. Skeletal structures demonstrate age-related changes. IMPRESSION: Limited examination with presumed small nonobstructing left renal calculi. <Electronically signed by Eulogio Christiansen > 04/10/21 0912
--- NOTE | 2021-04-10 09:23 | RO ---
OPERATIVE NOTE DATE OF OPERATION: 04/10/2021 PREOPERATIVE DIAGNOSIS: Left kidney stone. POSTOPERATIVE DIAGNOSIS: Left kidney stone. PROCEDURES: Left extracorporeal shock wave lithotripsy. SURGEON: Ronnie Cedeno MD. COMPRESSOR MECHANIC BUS: None. ANESTHESIA: MAC. OPERATIVE INDICATIONS: This is a 60-year-old female who was found to have a 6-mm left kidney stone. She was brought to the operating room today for treatment. DESCRIPTION OF PROCEDURE: The patient was brought to the operating room and MAC anesthesia was administered. Prophylactic antibiotics were infused. She was then placed in supine position in preparation for left-sided extracorporeal shock wave lithotripsy. Fluoroscopy was utilized to monitor stone position and fragmentation throughout the procedure. Shock waves were then delivered to the left-sided kidney stone, ungated. There were no arrhythmias. The stone did appear to fragment well. After 2500 shocks, the procedure was concluded. The patient was then awakened from anesthesia and transported to the recovery room in stable condition. ESTIMATED BLOOD LOSS: 0 mL. COMPLICATIONS: None. SPECIMEN: None. PLAN: The patient will follow up in the Urology Clinic in a few weeks with imaging prior to assess for residual stone burden.
[2021-04-10 10:20] VITALS: BP 138/87
== END 2021-04-10 10:22 | disposition home or self-care (01) ==
LOC: M SDC 07:11
PROVIDERS: ATTEND Urology
DX: N20.0 Calculus of kidney (principal); I48.91 Unspecified atrial fibrillation; I10 Essential (primary) hypertension; E78.5 Hyperlipidemia, unspecified; E03.9 Hypothyroidism, unspecified; Z87.891 Personal history of nicotine dependence; Z79.899 Other long term (current) drug therapy; Z79.84 Long term (current) use of oral hypoglycemic drugs; Z88.0 Allergy status to penicillin; Z88.2 Allergy status to sulfonamides; F41.9 Anxiety disorder, unspecified; E11.9 Type 2 diabetes mellitus without complications
CPT/HCPCS: 50590; 74018; J0690; J2250; J2405; J3010

== ENCOUNTER 2021-04-23 11:06 | Day surgery (SDC) | payer OTHER ==
[~2021-04-23] VITALS: Ht 165.1 cm; Wt 87.1 kg
[~2021-04-23 11:06] MED LIST changes: +FLOM0.4C39 PO; +HOME MED LIST COMPLETE! XX SCH; +OXYC1TAB23 PO; -ceFAZolin SOD 2 GM in IV 1 EA IV ONE
[2021-04-23] MEDS ORDERED: BACITRACIN OINTMENT 30GM TUBE As Ordered ONE (11:52)
[2021-04-23] MEDS ORDERED: LIDOCAINE W/EPINEPHRINE 1% 20ML VIAL As Ordered ONE (11:52)
[2021-04-23] MEDS ORDERED: PHENYLEPHRINE 10MG/ML 1ML VIAL (J2370 PER 1) As Ordered ONE (13:01)
[2021-04-23] MEDS ORDERED: SUGAMMADEX SODIUM 500 MG/5 ML VIAL (BRIDION) As Ordered ONE (13:01)
[2021-04-23] MEDS ORDERED: MIDAZOLAM INJ 2MG/2ML VIAL (J2250 PER 1MG) As Ordered ONE (13:01)
[2021-04-23] MEDS ORDERED: propofoL 200 MG/20 ML VIAL As Ordered ONE (13:01)
[2021-04-23] MEDS ORDERED: dexameTHASONE 4 MG/ML 1ML VIAL (J1100 PER 1MG) As Ordered ONE (13:01)
[2021-04-23] MEDS ORDERED: ROCURONIUM BROMIDE 50 MG/5 ML VIAL As Ordered ONE (13:01)
[2021-04-23] MEDS ORDERED: REMIFENTANIL 1MG 3ML VIAL As Ordered ONE ×2 (13:01→13:45)
[2021-04-23] MEDS ORDERED: fentaNYL 100 MCG/2 ML INJECTION As Ordered ONE (13:01)
[2021-04-23] MEDS ORDERED: LIDOCAINE 2% 100MG/5ML SDV (FOR ANES.) As Ordered ONE (13:01)
[2021-04-23] MEDS ORDERED: ONDANSETRON 4MG/2ML VIAL As Ordered ONE (13:01)
[2021-04-23] MEDS ORDERED: GLYCOPYRROLATE INJ 0.2 MG/ML 2 ML VIAL As Ordered ONE (13:19)
[2021-04-23] MEDS ORDERED: LR 1,000 ML IV SCH ×2 (15:05)
[2021-04-23] MEDS ORDERED: ONDANSETRON 4MG/2ML VIAL IV PRN (15:05)
[2021-04-23] MEDS: oxyCODONE 5MG TAB PO PRN ×2 (15:09→15:44)
[2021-04-23] MEDS: HYDROMORPHONE HCL 0.5 MG/ 0.5 ML SYRINGE (J1170 PER 1) IV PRN ×4 (15:09→15:28)
[2021-04-23] MEDS: fentaNYL 100 MCG/2 ML INJECTION IV PRN ×4 (15:33→15:49)
[2021-04-23 17:00] VITALS: BP 139/84
== END 2021-04-23 17:07 | disposition home or self-care (01) ==
LOC: M SDC 11:06
PROVIDERS: ATTEND Otolaryngology
DX: E04.2 Nontoxic multinodular goiter (principal); I10 Essential (primary) hypertension; E78.5 Hyperlipidemia, unspecified; E11.9 Type 2 diabetes mellitus without complications; E03.9 Hypothyroidism, unspecified; F41.9 Anxiety disorder, unspecified; Z79.84 Long term (current) use of oral hypoglycemic drugs; Z79.82 Long term (current) use of aspirin; Z79.899 Other long term (current) drug therapy; Z88.0 Allergy status to penicillin; Z88.2 Allergy status to sulfonamides
CPT/HCPCS: 60220; 88307; J1100; J1170; J2250; J2370; J2405; J3010; U0002

== ENCOUNTER → 2021-05-05 | Outpatient (REF) | payer OTHER ==
[~2021-05-05] MED LIST changes: -HOME MED LIST COMPLETE! XX SCH; -LR 1,000 ML IV ONE
[2021-05-10 16:08] LABS: CA Oxalate Dihy 40 % (.); Ca Ox Monohydrate 10 % (.); Size 2x1 mm (.)
== END ==
LOC: M SMT 13:22
PROVIDERS: ATTEND Nurse Practitioner Women's Health
DX: N20.0 Calculus of kidney (principal)

== ENCOUNTER → 2021-05-13 | Outpatient (CLI) | payer OTHER ==
--- NOTE | 2021-05-13 14:58 | REP ---
INDICATION: ENCOUNTER FOR OTHER ORTHOPEDIC AFTERCARE. COMPARISON: 04/01/2021 TECHNIQUE: AP, lateral, oblique views of the right ankle FINDINGS: Stable satisfactory open reduction and fixation again noted. Soft tissue swelling and chronic/postsurgical degenerative changes are again identified and essentially stable. IMPRESSION: Soft tissue swelling. Stable postsurgical and degenerative changes. <Electronically signed by Eulogio Christiansen > 05/13/21 [id number]
== END ==
LOC: M SOG 14:08
PROVIDERS: ATTEND Orthopaedic Surgery
DX: Z47.89 Encounter for other orthopedic aftercare (principal)

== ENCOUNTER → 2021-05-20 | Outpatient (CLI) | payer OTHER ==
[2021-05-20 15:54] LABS: FREE T4 0.91 NG/DL (0.76-1.46); THYROID STIMULATING HORMONE 3.07 uIU/ML (0.358-3.740)
== END ==
LOC: M LAB 14:46
PROVIDERS: ATTEND Otolaryngology
DX: E04.2 Nontoxic multinodular goiter (principal)

== ENCOUNTER → 2021-08-01 | Outpatient (CLI) | payer OTHER | LOC: M PAIN 11:30 | PROVIDERS: ATTEND Nurse Practitioner Family | DX: M25.571 Pain in right ankle and joints of right foot (principal); G89.29 Other chronic pain; R73.03 Prediabetes; E03.9 Hypothyroidism, unspecified; Z86.59 Personal history of other mental and behavioral disorders; Z87.891 Personal history of nicotine dependence; Z88.0 Allergy status to penicillin; Z88.2 Allergy status to sulfonamides; Z79.82 Long term (current) use of aspirin; Z79.84 Long term (current) use of oral hypoglycemic drugs; Z79.899 Other long term (current) drug therapy ==

== ENCOUNTER → 2021-08-05 | Outpatient (CLI) | payer OTHER | LOC: M SOG 08:32 | PROVIDERS: ATTEND Orthopaedic Surgery | DX: Z47.89 Encounter for other orthopedic aftercare (principal); M25.571 Pain in right ankle and joints of right foot ==

== ENCOUNTER → 2022-02-12 | Outpatient (REF) | payer OTHER ==
[2022-02-12 12:11] LABS: BASO % 0.3 % (0.0-1.0); EOS # 0.2 10^3/uL (0.0-0.5); EOS % 2.9 % (0.0-3.0); HEMATOCRIT 39.5 % (36.0-47.0); HEMOGLOBIN 13.1 g/dl (12.0-15.5); LYMPH # 2.4 10^3/uL (1.5-5.0); MEAN CORPUSCULAR HEMOGLOBIN 31.6 pg (27.0-33.0); MEAN CORPUSCULAR HGB CONC 33.2 g/dl (32.0-36.5); MEAN CORPUSCULAR VOLUME 95.2 fl (80.0-96.0); MONO # 0.6 10^3/uL (0.0-0.8); MONO % 9.4 % (2.0-8.0); NEUTROPHILS # 2.8 10^3/uL (1.5-8.5); NEUTROPHILS % 47.2 % (36.0-66.0); PLATELET COUNT, AUTOMATED 308 10^3/uL (150-450); RED BLOOD COUNT 4.15 10^6/uL (4.00-5.40); WHITE BLOOD COUNT 5.9 10^3/uL (4.0-10.0)
[2022-02-12 12:37] LABS: HEMOGLOBIN A1c 5.7 %
[2022-02-12 12:57] LABS: ALT/SGPT 50 U/L (12-78); BILIRUBIN,TOTAL 0.5 MG/DL (0.2-1.0); BLOOD UREA NITROGEN 15 MG/DL (7-18); CALCIUM LEVEL 9.8 MG/DL (8.8-10.2); CARBON DIOXIDE LEVEL 25 MEQ/L (21-32); CHLORIDE LEVEL 107 MEQ/L (98-107); CHOLESTEROL LEVEL 224 MG/DL (<200); CHOLESTEROL RISK RATIO 3.393 (<5); CREATININE FOR GFR 0.81 MG/DL (0.55-1.30); FREE T4 0.94 NG/DL (0.76-1.46); GLOMERULAR FILTRATION RATE > 60.0 (>45); GLUCOSE, FASTING 111 MG/DL (70-100); HDL CHOLESTEROL 66 MG/DL (>40); LDL CHOLESTEROL 107 MG/DL (<100); NON-HDL-C 158 MG/DL; POTASSIUM SERUM 4.4 MEQ/L (3.5-5.1); SODIUM LEVEL 137 MEQ/L (136-145); TOTAL PROTEIN 7.3 GM/DL (6.4-8.2); TRIGLYCERIDES LEVEL 256 MG/DL (<150)
== END ==
LOC: M SFHCCLAY 08:28
PROVIDERS: ATTEND Nurse Practitioner Family
DX: R19.7 Diarrhea, unspecified (principal)

== ENCOUNTER → 2022-03-03 | Outpatient (CLI) | payer OTHER | LOC: M WHC 08:17 | PROVIDERS: ATTEND Nurse Practitioner Family | DX: R19.7 Diarrhea, unspecified (principal); R10.11 Right upper quadrant pain; N28.1 Cyst of kidney, acquired ==

== ENCOUNTER → 2022-05-07 | Outpatient (CLI) | payer OTHER | LOC: M SOG 10:09 | PROVIDERS: ATTEND Student in an Organized Health Care Education/Training Program | DX: S82.851D Displaced trimalleolar fracture of right lower leg, subsequent encounter for closed fracture with routine healing (principal); Z48.89 Encounter for other specified surgical aftercare ==

== ENCOUNTER → 2022-09-22 | Outpatient (CLI) | payer OTHER | LOC: M CARPUL 15:00 | PROVIDERS: ATTEND Nurse Practitioner Family | DX: R07.9 Chest pain, unspecified (principal) ==

== ENCOUNTER → 2022-11-18 | Outpatient (REF) | payer OTHER ==
[2022-11-18 18:33] LABS: FREE T4 1.13 NG/DL (0.89-1.76); THYROID STIMULATING HORMONE 1.762 uIU/ML (0.55-4.78)
== END ==
LOC: M SFHCCLAY 08:07
PROVIDERS: ATTEND Nurse Practitioner Family
DX: E03.9 Hypothyroidism, unspecified (principal)

== ENCOUNTER → 2023-01-12 | Outpatient (CLI) | payer OTHER | LOC: M CLY 11:00 | PROVIDERS: ATTEND Nurse Practitioner Family | DX: R05.1 Acute cough (principal); Z53.9 Procedure and treatment not carried out, unspecified reason ==

== ENCOUNTER → 2023-01-12 | Outpatient (CLI) | payer OTHER | LOC: M CLY 11:08 | PROVIDERS: ATTEND Nurse Practitioner Family | DX: R05.1 Acute cough (principal) ==

== ENCOUNTER → 2023-01-28 | Outpatient (CLI) | payer OTHER | LOC: M SOG 15:41 | PROVIDERS: ATTEND Orthopaedic Surgery | DX: M25.571 Pain in right ankle and joints of right foot (principal) ==

== ENCOUNTER → 2023-02-05 | Outpatient (REF) | payer OTHER ==
[2023-02-05 18:12] LABS: APPEARANCE, URINE CLOUDY (CLEAR); BACTERIA, URINE AUTO NEGATIVE (NEGATIVE); BILIRUBIN, URINE AUTO NEGATIVE (NEGATIVE); BLOOD, URINE BLOOD NEGATIVE (NEGATIVE); CALCIUM OXALATE CRYSTALS SMALL; COLOR, URINE AMBER (YELLOW); GLUCOSE, URINE (UA) AUTO NEGATIVE (NEGATIVE); KETONE, URINE AUTO TRACE mg/dL (NEGATIVE); LEUKOCYTE ESTERASE, URINE AUTO TRACE (NEGATIVE); MUCUS, URINE SMALL (NEGATIVE); NITRITE, URINE AUTO NEGATIVE (NEGATIVE); PROTEIN, URINE AUTO 1+ mg/dL (NEGATIVE); RBC, URINE AUTO 0 /HPF (0-3); SPECIFIC GRAVITY URINE AUTO 1.028 (1.002-1.035); SQUAMOUS EPITHELIAL CELL UR AU 0 /HPF (0-6); UROBILINOGEN, URINE AUTO 0.2 mg/dL (0.0-2.0); WBC, URINE AUTO 12 /HPF (0-3)
== END ==
LOC: M SMT 16:45
PROVIDERS: ATTEND Urology
DX: N20.1 Calculus of ureter (principal)

== ENCOUNTER → 2023-02-10 | Outpatient (CLI) | payer OTHER ==
[~2023-02-10] MED LIST changes: +AMLO1TAB24 PO; +MACR100C43 PO; +OXYB5TAB10 PO; +PYRI1TAB5 PO; +ROSU40TA4 PO; +XALA0.007 OU
== END ==
LOC: M EKG 14:29
DX: N20.1 Calculus of ureter (principal)

== ENCOUNTER 2023-02-11 07:00 | Day surgery (SDC) | payer OTHER ==
[~2023-02-11] VITALS: Ht 165.1 cm; Wt 84.9 kg
[~2023-02-11 07:00] MED LIST changes: -MACR100C43 PO; -OXYB5TAB10 PO; -PYRI1TAB5 PO; +ceFAZolin SOD 2 GM in IV 1 EA IV ONE
[2023-02-11] MEDS ORDERED: ISOVUE-300 61% 100ML VIAL As Ordered ONE (07:14)
[2023-02-11] MEDS ORDERED: fentaNYL 100 MCG/2 ML INJECTION As Ordered ONE (07:28)
[2023-02-11] MEDS ORDERED: MIDAZOLAM INJ 2MG/2ML VIAL As Ordered ONE (07:28)
[2023-02-11] MEDS ORDERED: LIDOCAINE 2% 100MG/5ML SDV (FOR ANES.) As Ordered ONE (07:28)
[2023-02-11] MEDS ORDERED: propofoL 200 MG/20 ML VIAL As Ordered ONE ×2 (07:28→09:17)
[2023-02-11] MEDS ORDERED: LR 1,000 ML IV SCH (07:45)
[2023-02-11] MEDS ORDERED: INSULIN LISPRO (NovoLOG) PER UNIT SC PRN ×2 (07:45→09:45)
[2023-02-11] MEDS ORDERED: ceFAZolin SOD 2 GM in IV 1 EA IV ONE (08:25)
[2023-02-11] MEDS ORDERED: ACETAMINOPHEN 1000MG 100ML IV BAG As Ordered ONE (09:19)
[2023-02-11] MEDS ORDERED: ONDANSETRON 4MG 2ML VIAL As Ordered ONE (09:19)
[2023-02-11] MEDS ORDERED: ePHEDrine SULFATE 25 MG/5 ML(5MG/ML) SYRINGE As Ordered ONE (09:30)
[2023-02-11] MEDS ORDERED: ONDANSETRON 4MG 2ML VIAL IV PRN (09:45)
[2023-02-11] MEDS ORDERED: PYRI1TAB5 PO (10:00)
[2023-02-11] MEDS ORDERED: MACR100C43 PO (10:00)
[2023-02-11] MEDS ORDERED: OXYB5TAB10 PO (10:00)
[2023-02-11 10:40] VITALS: BP 136/74; TEMP 97.2; O2SAT 98
[2023-02-11] MEDS ORDERED: oxyBUTYnin 5 MG TAB PO ONE (11:00)
== END 2023-02-11 10:50 | disposition home or self-care (01) ==
LOC: M SDC 07:00
PROVIDERS: ATTEND Urology
DX: N20.1 Calculus of ureter (principal); I10 Essential (primary) hypertension; E78.5 Hyperlipidemia, unspecified; E03.9 Hypothyroidism, unspecified; F41.9 Anxiety disorder, unspecified; Z87.891 Personal history of nicotine dependence; Z79.82 Long term (current) use of aspirin; Z88.0 Allergy status to penicillin; Z88.2 Allergy status to sulfonamides; Z79.899 Other long term (current) drug therapy; Z79.84 Long term (current) use of oral hypoglycemic drugs
CPT/HCPCS: 52356; 71046; 76000; 82365; C1769; C2617; J0131; J0690; J1100; J2250; J2405; J3010; Q9967

== ENCOUNTER 2023-03-11 12:14 | Day surgery (SDC) | payer OTHER ==
[~2023-03-11] VITALS: Ht 165.1 cm; Wt 86.2 kg
[~2023-03-11 12:14] MED LIST changes: +MACR100C43 PO; +MELO15TA28 PO; +OXYB5TAB11 PO; +PYRI1TAB5 PO; +TAMS1CAP17 PO
[2023-03-11] MEDS ORDERED: HYDR-4571 PO (13:06)
[2023-03-11] MEDS ORDERED: LR 1,000 ML IV SCH (13:10)
[2023-03-11] MEDS ORDERED: fentaNYL 100 MCG/2 ML INJECTION As Ordered ONE (14:43)
[2023-03-11] MEDS ORDERED: MIDAZOLAM INJ 2MG/2ML VIAL As Ordered ONE (14:44)
[2023-03-11] MEDS ORDERED: propofoL 200 MG/20 ML VIAL As Ordered ONE (14:44)
[2023-03-11] MEDS ORDERED: LIDOCAINE 2% 100MG/5ML SDV (FOR ANES.) As Ordered ONE (14:44)
[2023-03-11 16:15] VITALS: BP 133/74; TEMP 97; O2SAT 95
== END 2023-03-11 16:18 | disposition home or self-care (01) ==
LOC: M SDC 12:14
PROVIDERS: ATTEND Urology
DX: N20.0 Calculus of kidney (principal); E11.9 Type 2 diabetes mellitus without complications; I10 Essential (primary) hypertension; E78.00 Pure hypercholesterolemia, unspecified; Z87.442 Personal history of urinary calculi; Z79.899 Other long term (current) drug therapy; Z79.82 Long term (current) use of aspirin; Z79.84 Long term (current) use of oral hypoglycemic drugs; Z79.890 Hormone replacement therapy; Z87.891 Personal history of nicotine dependence; Z88.0 Allergy status to penicillin; Z88.2 Allergy status to sulfonamides

== ENCOUNTER → 2023-04-07 | Outpatient (REF) | payer OTHER ==
[~2023-04-07] MED LIST changes: +HYDR-4571 PO; -ceFAZolin SOD 2 GM in IV 1 EA IV ONE
[2023-04-07 18:58] LABS: BASO % 0.3 % (0.0-1.0); EOS # 0.1 10^3/uL (0.0-0.5); EOS % 1.8 % (0.0-3.0); HEMATOCRIT 37.7 % (36.0-47.0); LYMPH # 2.3 10^3/uL (1.5-5.0); LYMPH % 38.7 % (24.0-44.0); MEAN CORPUSCULAR HEMOGLOBIN 30.1 pg (27.0-33.0); MEAN CORPUSCULAR HGB CONC 31.8 g/dl (32.0-36.5); MEAN CORPUSCULAR VOLUME 94.5 fl (80.0-96.0); MONO # 0.5 10^3/uL (0.0-0.8); MONO % 8.3 % (2.0-8.0); NEUTROPHILS # 3.1 10^3/uL (1.5-8.5); NEUTROPHILS % 50.7 % (36.0-66.0); PLATELET COUNT, AUTOMATED 261 10^3/uL (150-450); RED BLOOD COUNT 3.99 10^6/uL (4.00-5.40)
[2023-04-07 18:59] LABS: HEMOGLOBIN A1c 5.4 % (4.0-6.0)
[2023-04-07 19:13] LABS: ALBUMIN 4.1 G/DL (3.2-5.2); ALKALINE PHOSPHATASE 64 U/L (46-116); ALT/SGPT 25 U/L (7.0-40); AST/SGOT 15 U/L (<34); BILIRUBIN,TOTAL 0.7 MG/DL (0.3-1.2); BLOOD UREA NITROGEN 20 MG/DL (9-23); CALCIUM LEVEL 9.4 MG/DL (8.3-10.6); CARBON DIOXIDE LEVEL 31 MMOL/L (20-31); CHLORIDE LEVEL 104 MMOL/L (98-107); CHOLESTEROL LEVEL 243 MG/DL (<200); CHOLESTEROL RISK RATIO 3.49 (<5); CREATININE FOR GFR 0.69 MG/DL (0.55-1.30); FREE T4 1.05 NG/DL (0.89-1.76); GLOMERULAR FILTRATION RATE > 60.0 (>45); GLUCOSE, FASTING 93 MG/DL (74-106); HDL CHOLESTEROL 69.6 MG/DL (>40); LDL CHOLESTEROL 124.2 MG/DL (<100); NON-HDL-C 173.4 MG/DL; POTASSIUM SERUM 4.6 MMOL/L (3.5-5.1); SODIUM LEVEL 142 MMOL/L (136-145); TRIGLYCERIDES LEVEL 246 MG/DL (<150)
[2023-04-07 19:14] LABS: THYROID STIMULATING HORMONE 2.022 uIU/ML (0.55-4.78)
== END ==
LOC: M SFHCCLAY 10:15
PROVIDERS: ATTEND Nurse Practitioner Family
DX: R73.01 Impaired fasting glucose (principal); E03.9 Hypothyroidism, unspecified; F41.1 Generalized anxiety disorder; E66.9 Obesity, unspecified; B00.9 Herpesviral infection, unspecified; Z63.0 Problems in relationship with spouse or partner

== ENCOUNTER → 2023-10-07 | Outpatient (REF) | payer OTHER ==
[~2023-10-07] MED LIST changes: -OXYB5TAB11 PO; +OXYB5TAB14 PO; -ROSU40TA4 PO; +ROSU40TA63 PO; -SENN1TAB41 PO; +SENN1TAB85 PO
[2023-10-07 19:06] LABS: ALKALINE PHOSPHATASE 68 U/L (46-116); ALT/SGPT 36 U/L (7.0-40); AST/SGOT 24 U/L (<34); BILIRUBIN,TOTAL 0.8 MG/DL (0.3-1.2); BLOOD UREA NITROGEN 23 MG/DL (9-23); CALCIUM LEVEL 10.2 MG/DL (8.3-10.6); CARBON DIOXIDE LEVEL 31 MMOL/L (20-31); CHLORIDE LEVEL 105 MMOL/L (98-107); CREATININE FOR GFR 0.77 MG/DL (0.55-1.30); GLOMERULAR FILTRATION RATE > 60.0 (>45); GLUCOSE, FASTING 103 MG/DL (74-106); POTASSIUM SERUM 4.8 MMOL/L (3.5-5.1); SODIUM LEVEL 143 MMOL/L (136-145); THYROID STIMULATING HORMONE 2.075 uIU/ML (0.55-4.78); TOTAL 25(OH) VITAMIN D 88.1 NG/ML (20.0-100.0); TOTAL PROTEIN 6.8 G/DL (5.7-8.2)
[2023-10-07 19:07] LABS: FREE T4 1.17 NG/DL (0.89-1.76)
== END ==
LOC: M SFHCCLAY 10:23
PROVIDERS: ATTEND Nurse Practitioner Family
DX: R73.01 Impaired fasting glucose (principal); E03.9 Hypothyroidism, unspecified; F41.1 Generalized anxiety disorder; E66.9 Obesity, unspecified; B00.9 Herpesviral infection, unspecified; Z63.0 Problems in relationship with spouse or partner; N20.0 Calculus of kidney

== ENCOUNTER → 2023-11-03 | Outpatient (REF) | payer OTHER ==
[2023-11-03 12:52] LABS: BASO % 0.3 % (0.0-1.0); EOS # 0.2 10^3/uL (0.0-0.5); EOS % 3.1 % (0.0-3.0); HEMATOCRIT 39.6 % (36.0-47.0); HEMOGLOBIN 12.7 g/dl (12.0-15.5); LYMPH # 2.3 10^3/uL (1.5-5.0); LYMPH % 31.3 % (24.0-44.0); MEAN CORPUSCULAR HEMOGLOBIN 30.3 pg (27.0-33.0); MEAN CORPUSCULAR HGB CONC 32.1 g/dl (32.0-36.5); MEAN CORPUSCULAR VOLUME 94.5 fl (80.0-96.0); MONO # 0.7 10^3/uL (0.0-0.8); MONO % 9.9 % (2.0-8.0); NEUTROPHILS # 4.1 10^3/uL (1.5-8.5); NEUTROPHILS % 55.1 % (36.0-66.0); PLATELET COUNT, AUTOMATED 271 10^3/uL (150-450); RED BLOOD COUNT 4.19 10^6/uL (4.00-5.40); WHITE BLOOD COUNT 7.4 10^3/uL (4.0-10.0)
[2023-11-03 13:58] LABS: ALBUMIN 3.8 G/DL (3.2-5.2); ALKALINE PHOSPHATASE 72 U/L (46-116); ALT/SGPT 43 U/L (7.0-40); AST/SGOT 16 U/L (<34); BILIRUBIN,TOTAL 0.6 MG/DL (0.3-1.2); BLOOD UREA NITROGEN 25 MG/DL (9-23); CALCIUM LEVEL 9.5 MG/DL (8.3-10.6); CARBON DIOXIDE LEVEL 27 MMOL/L (20-31); CHLORIDE LEVEL 108 MMOL/L (98-107); CREATININE FOR GFR 0.75 MG/DL (0.55-1.30); GLOMERULAR FILTRATION RATE > 60.0 (>45); GLUCOSE, FASTING 100 MG/DL (74-106); POTASSIUM SERUM 4.7 MMOL/L (3.5-5.1); SODIUM LEVEL 142 MMOL/L (136-145); TOTAL PROTEIN 6.7 G/DL (5.7-8.2)
== END ==
LOC: M SFHCCLAY 08:22
PROVIDERS: ATTEND Nurse Practitioner Family
DX: N20.0 Calculus of kidney (principal); R73.01 Impaired fasting glucose; E03.9 Hypothyroidism, unspecified; F41.1 Generalized anxiety disorder; E66.9 Obesity, unspecified; B00.9 Herpesviral infection, unspecified; Z63.0 Problems in relationship with spouse or partner; Z01.818 Encounter for other preprocedural examination

== ENCOUNTER → 2024-03-28 | Outpatient (REF) | payer OTHER ==
[~2024-03-28] MED LIST changes: -BYST10TA2 PO; +BYST1TAB3 PO; -ROSU40TA63 PO; +ROSU40TA81 PO
[2024-03-28 17:07] LABS: BASO % 0.2 % (0.0-1.0); EOS # 0.1 10^3/uL (0.0-0.5); EOS % 2.1 % (0.0-3.0); HEMATOCRIT 39.4 % (36.0-47.0); HEMOGLOBIN 12.8 g/dl (12.0-15.5); LYMPH # 2.3 10^3/uL (1.5-5.0); LYMPH % 38.4 % (24.0-44.0); MEAN CORPUSCULAR HEMOGLOBIN 30.8 pg (27.0-33.0); MEAN CORPUSCULAR HGB CONC 32.5 g/dl (32.0-36.5); MEAN CORPUSCULAR VOLUME 94.7 fl (80.0-96.0); MONO # 0.7 10^3/uL (0.0-0.8); NEUTROPHILS # 2.9 10^3/uL (1.5-8.5); NEUTROPHILS % 48.1 % (36.0-66.0); PLATELET COUNT, AUTOMATED 260 10^3/uL (150-450); RED BLOOD COUNT 4.16 10^6/uL (4.00-5.40); WHITE BLOOD COUNT 6.1 10^3/uL (4.0-10.0)
[2024-03-28 17:21] LABS: HEMOGLOBIN A1c 5.7 % (4.0-6.0)
[2024-03-28 17:37] LABS: ALBUMIN 4.1 G/DL (3.2-5.2); ALKALINE PHOSPHATASE 70 U/L (35-104); ALT/SGPT 38 U/L (7.0-40); AST/SGOT 21 U/L (<34); BILIRUBIN,TOTAL 0.8 MG/DL (0.3-1.2); BLOOD UREA NITROGEN 24 MG/DL (9-23); CALCIUM LEVEL 10.6 MG/DL (8.3-10.6); CARBON DIOXIDE LEVEL 30 MMOL/L (20-31); CHLORIDE LEVEL 103 MMOL/L (98-107); CREATININE FOR GFR 0.72 MG/DL (0.55-1.30); GLOMERULAR FILTRATION RATE > 60.0 (>45); GLUCOSE, FASTING 96 MG/DL (74-106); POTASSIUM SERUM 4.5 MMOL/L (3.5-5.1); SODIUM LEVEL 140 MMOL/L (136-145); TOTAL PROTEIN 7.4 G/DL (5.7-8.2)
== END ==
LOC: M SFHCCLAY 10:34
PROVIDERS: ATTEND Nurse Practitioner Family
DX: Z01.818 Encounter for other preprocedural examination (principal)

== ENCOUNTER → 2024-07-18 | Outpatient (REF) | payer OTHER ==
[2024-07-18 17:27] LABS: BASO % 0.2 % (0.0-1.0); EOS # 0.1 10^3/uL (0.0-0.5); EOS % 2.1 % (0.0-3.0); HEMATOCRIT 39.3 % (36.0-47.0); HEMOGLOBIN 12.7 g/dl (12.0-15.5); LYMPH % 42.7 % (24.0-44.0); MEAN CORPUSCULAR HEMOGLOBIN 29.2 pg (27.0-33.0); MEAN CORPUSCULAR HGB CONC 32.3 g/dl (32.0-36.5); MEAN CORPUSCULAR VOLUME 90.3 fl (80.0-96.0); MONO # 0.5 10^3/uL (0.0-0.8); MONO % 10.5 % (2.0-8.0); NEUTROPHILS # 2.1 10^3/uL (1.5-8.5); NEUTROPHILS % 44.3 % (36.0-66.0); PLATELET COUNT, AUTOMATED 250 10^3/uL (150-450); RED BLOOD COUNT 4.35 10^6/uL (4.00-5.40); WHITE BLOOD COUNT 4.8 10^3/uL (4.0-10.0)
[2024-07-18 17:34] LABS: ALBUMIN 4.1 G/DL (3.2-5.2); ALKALINE PHOSPHATASE 74 U/L (35-104); ALT/SGPT 34 U/L (7.0-40); AST/SGOT 23 U/L (<34); BILIRUBIN,TOTAL 1.3 MG/DL (0.3-1.2); BLOOD UREA NITROGEN 15 MG/DL (9-23); CALCIUM LEVEL 9.8 MG/DL (8.3-10.6); CARBON DIOXIDE LEVEL 28 MMOL/L (20-31); CHLORIDE LEVEL 103 MMOL/L (98-107); CHOLESTEROL LEVEL 160 MG/DL (<200); CREATININE FOR GFR 0.75 MG/DL (0.55-1.30); GLOMERULAR FILTRATION RATE > 60.0 (>45); GLUCOSE, FASTING 100 MG/DL (74-106); HDL CHOLESTEROL 61.5 MG/DL (>40); LDL CHOLESTEROL 51.9 MG/DL (<100); NON-HDL-C 98.5 MG/DL; POTASSIUM SERUM 4.8 MMOL/L (3.5-5.1); SODIUM LEVEL 141 MMOL/L (136-145); TOTAL PROTEIN 7.1 G/DL (5.7-8.2); TRIGLYCERIDES LEVEL 233 MG/DL (<150)
[2024-07-18 17:35] LABS: THYROID STIMULATING HORMONE 3.427 uIU/ML (0.55-4.78); TOTAL 25(OH) VITAMIN D 78.4 NG/ML (20.0-100.0)
[2024-07-18 17:36] LABS: FREE T4 1.35 NG/DL (0.89-1.76)
[2024-07-18 17:51] LABS: HEMOGLOBIN A1c 5.8 % (4.0-6.0)
== END ==
LOC: M SFHCCLAY 11:27
PROVIDERS: ATTEND Nurse Practitioner Family
DX: Z01.818 Encounter for other preprocedural examination (principal); N20.0 Calculus of kidney; R73.01 Impaired fasting glucose; E03.9 Hypothyroidism, unspecified; F41.1 Generalized anxiety disorder; E66.9 Obesity, unspecified; B00.9 Herpesviral infection, unspecified; Z63.0 Problems in relationship with spouse or partner; Z79.899 Other long term (current) drug therapy

== ENCOUNTER → 2025-01-11 | Outpatient (REF) | payer OTHER ==
[~2025-01-11] MED LIST changes: +ACYC-438 PO; -ACYC1TAB PO; -FLOM0.4C39 PO; +TAMS-18 PO
[2025-01-11 18:11] LABS: BASO # 0.0 10^3/uL (0.0-0.2); BASO % 0.4 % (0.0-1.0); EOS # 0.2 10^3/uL (0.0-0.5); EOS % 2.5 % (0.0-3.0); LYMPH # 2.0 10^3/uL (1.5-5.0); LYMPH % 29.8 % (24.0-44.0); MONO # 0.6 10^3/uL (0.0-0.8); MONO % 9.1 % (2.0-8.0); NEUTROPHILS # 3.9 10^3/uL (1.5-8.5); NEUTROPHILS % 58.1 % (36.0-66.0); PLATELET COUNT, AUTOMATED 226 10^3/uL (150-450)
[2025-01-11 18:13] LABS: ALT/SGPT 32.0 U/L (7.0-40); AST/SGOT 26.0 U/L (<34); CALCIUM LEVEL 9.9 MG/DL (8.3-10.6); CARBON DIOXIDE LEVEL 27.0 MMOL/L (20-31); CHLORIDE LEVEL 103.0 MMOL/L (98-107); CHOLESTEROL LEVEL 148.0 MG/DL (<200); CHOLESTEROL RISK RATIO 2.36 (<5); CREATININE FOR GFR 0.85 MG/DL (0.55-1.30); GLOMERULAR FILTRATION RATE 76.0 (>45); LDL CHOLESTEROL 57.7 MG/DL (<100); NON-HDL-C 85.5 MG/DL; POTASSIUM SERUM 4.4 MMOL/L (3.5-5.1); SODIUM LEVEL 142.0 MMOL/L (136-145); TRIGLYCERIDES LEVEL 139.0 MG/DL (<150)
[2025-01-11 18:14] LABS: FREE T4 1.25 NG/DL (0.89-1.76); TOTAL 25(OH) VITAMIN D 66.9 NG/ML (20.0-100.0)
[2025-01-11 18:49] LABS: ESTIMATED AVERAGE GLUCOSE 111.0 MG/DL (60-110)
== END ==
LOC: M SFHCCLAY 11:57
PROVIDERS: ATTEND Nurse Practitioner Family
DX: E66.9 Obesity, unspecified (principal); E03.9 Hypothyroidism, unspecified; F41.1 Generalized anxiety disorder; B00.9 Herpesviral infection, unspecified; N20.0 Calculus of kidney; R73.03 Prediabetes; Z79.899 Other long term (current) drug therapy

== ENCOUNTER → 2025-02-28 | Outpatient (REF) | payer OTHER, MEDICARE | LOC: M SFHCCLAY 17:11 | PROVIDERS: ATTEND Nurse Practitioner Family | DX: R19.7 Diarrhea, unspecified (principal) ==

== ENCOUNTER → 2025-04-16 | Outpatient (REF) | payer OTHER ==
[~2025-04-16] MED LIST changes: +TIRZ12.53 SQ
[2025-04-16 17:54] LABS: BASO # 0.0 10^3/uL (0.0-0.2); BASO % 0.3 % (0.0-1.0); EOS # 0.2 10^3/uL (0.0-0.5); EOS % 2.1 % (0.0-3.0); LYMPH # 2.2 10^3/uL (1.5-5.0); LYMPH % 30.7 % (24.0-44.0); MONO # 0.6 10^3/uL (0.0-0.8); MONO % 8.7 % (2.0-8.0); NEUTROPHILS # 4.1 10^3/uL (1.5-8.5); NEUTROPHILS % 57.9 % (36.0-66.0); PLATELET COUNT, AUTOMATED 291 10^3/uL (150-450)
[2025-04-16 17:56] LABS: ALT/SGPT 30.0 U/L (7.0-40); AST/SGOT 29.0 U/L (<34); CALCIUM LEVEL 9.6 MG/DL (8.3-10.6); CARBON DIOXIDE LEVEL 27.0 MMOL/L (20-31); CHLORIDE LEVEL 104.0 MMOL/L (98-107); CREATININE FOR GFR 0.85 MG/DL (0.55-1.30); GLOMERULAR FILTRATION RATE 76.0 (>45); POTASSIUM SERUM 4.1 MMOL/L (3.5-5.1); SODIUM LEVEL 143.0 MMOL/L (136-145)
== END ==
LOC: M SFHCCLAY 11:51
PROVIDERS: ATTEND Nurse Practitioner Family
DX: E03.9 Hypothyroidism, unspecified (principal); F41.1 Generalized anxiety disorder; E66.9 Obesity, unspecified; B00.9 Herpesviral infection, unspecified; N20.0 Calculus of kidney; R73.03 Prediabetes

== ENCOUNTER 2025-04-25 06:11 | Day surgery (SDC) | payer MEDICARE, OTHER ==
[~2025-04-25] VITALS: Ht 165.1 cm; Wt 92.1 kg
[2025-04-25] MEDS ORDERED: LIDOCAINE 1% SDV 5 ML VIAL PN ONE (07:15)
[2025-04-25] MEDS: BUPivacaine LIPOSOME/PF 133 MG/10 ML VIAL PN ONE (07:15)
[2025-04-25] MEDS ORDERED: ROCURONIUM BROMIDE 50MG/5ML VIAL As Ordered ONE (07:16)
[2025-04-25] MEDS ORDERED: LIDOCAINE 2% 100 MG/5 ML SDV (FOR ANES.) As Ordered ONE (07:16)
[2025-04-25] MEDS ORDERED: ONDANSETRON 4MG/2ML VIAL As Ordered ONE (07:16)
[2025-04-25] MEDS ORDERED: dexAMETHasone 4 MG/ML 1 ML VIAL As Ordered ONE (07:16)
[2025-04-25] MEDS: LR 1,000 ML IV SCH (07:30)
[2025-04-25] MEDS: MIDAZOLAM INJ 2 MG/2 ML VIAL IV PRN (07:42)
[2025-04-25] MEDS: ceFAZolin SOD 2 GM IV ONCE IV ONE (08:04)
[2025-04-25] MEDS: TRANEXAMIC ACID 100 MG/ML 10ML VIAL As Ordered ONE (08:30)
[2025-04-25] MEDS ORDERED: ACETAMINOPHEN 1000MG/100ML IV BAG As Ordered ONE (08:58)
[2025-04-25] MEDS: LIDOCAINE W/EPINEPHrine 1% 20 ML VIAL As Ordered ONE (08:59)
[2025-04-25] MEDS ORDERED: KETOROLAC 30 MG/ML 1 ML VIAL As Ordered ONE (10:05)
[2025-04-25] MEDS ORDERED: SUGAMMADEX SODIUM 200 MG/2 ML VIAL As Ordered ONE (10:05)
[2025-04-25] MEDS: VANCOMYCIN 1000MG/20ML VIAL As Ordered ONE (10:15)
[2025-04-25] MEDS ORDERED: HYDROMORPHONE HCL 0.5 MG/0.5 ML SYRINGE IV PRN (10:35)
[2025-04-25] MEDS ORDERED: MORPHINE 2 MG/ML 1 ML VIAL IV PRN (10:35)
[2025-04-25] MEDS ORDERED: PERC5TAB12 PO (11:05)
[2025-04-25] MEDS: ONDANSETRON 4MG/2ML VIAL IV PRN (11:40)
[2025-04-25 12:54] VITALS: BP 127/69; TEMP 97.7; O2SAT 98
== END 2025-04-25 13:10 | disposition home or self-care (01) ==
LOC: M SDC 06:11
PROVIDERS: ATTEND Orthopaedic Surgery Hand Surgery
DX: M75.101 Unspecified rotator cuff tear or rupture of right shoulder, not specified as traumatic (principal); I10 Essential (primary) hypertension; R73.03 Prediabetes; E03.9 Hypothyroidism, unspecified; E66.9 Obesity, unspecified; E78.2 Mixed hyperlipidemia; F41.1 Generalized anxiety disorder; Z79.899 Other long term (current) drug therapy; Z79.85 Long-term (current) use of injectable non-insulin antidiabetic drugs; Z79.82 Long term (current) use of aspirin; Z79.1 Long term (current) use of non-steroidal anti-inflammatories (NSAID); Z79.890 Hormone replacement therapy; A60.04 Herpesviral vulvovaginitis; H40.9 Unspecified glaucoma; Z87.891 Personal history of nicotine dependence; Z68.33 Body mass index [BMI] 33.0-33.9, adult; Z88.2 Allergy status to sulfonamides; Z88.0 Allergy status to penicillin
CPT/HCPCS: 23472; 73020; 88300; C1713; C1776; J0131; J0665; J0666; J0688; J1100; J1885; J2250; J2405; J3010; J3373